=== PATIENT | female | born 1945 | race Caucasian/White ===

== ENCOUNTER 2019-12-25 07:33 | Day surgery (SDC) | payer MEDICARE, OTHER, SELFPAY ==
[2019-12-21 13:43] VITALS: BMI 37.5
[2019-12-25 07:53] VITALS: BP 200/96; PULSE 91; RESP 18; TEMP 36.9; O2SAT 97
--- NOTE | 2019-12-25 08:01 | ANES.PREANE2 ---
Pre-Anesthetic Assessment Pre-Anesthetic Assessment: Height/Weight: Height 1.57 m Weight 92.986 kg Temp Pulse Resp BP Pulse Ox 98.5 F 91 18 200/96 97 12/25/19 07:53 12/25/19 07:53 12/25/19 07:53 12/25/19 07:53 12/25/19 07:53 Preop Diagnosis: fobt Proposed Procedure: Operation Date: 12/25/19 09:00 Proposed Procedures p Colonoscopy 26473 R19.5(Not Applicable) - Torin Isabel MD Familial anesthetic complications: None Was Beta Nvein taken within 24 hours: Yes Last intake: NPO > 8hrs Social: Social History: No alcohol and No tobacco Comment: former smoker Exam: Pre-Anes Outpt Exam: alert, oriented x 3, clear to auscultation bilaterally and regular rate & rhythm Airway: Cervical ROM: WNL MP: 2 Additional comments: missing Pulmonary: Pulmonary: None reported CV/HEM: CV/HEM: HTN : : None reported Hepatic: Hepatic: None reported GI: GI: None reported Metabolic: Metabolic: DM and Hyperlipidemia Musc/skel: Musc/skel: Lower Back Pain Neuropsych: Neuropsych: None reported Comments: B/L Carotid artery stenosis (40-60% stenonis in 2015) Anesthetic Plan: ASA status: 3 Anesthesia: MAC Risk of > 500 ml blood loss (7ml/kg in children): No Other Pertinent Information: hx r breast caner PFSH Anesthesia PFSH: Medical History Breast cancer Diabetes mellitus Hyperlipidemia Hypertension Lumbar post-laminectomy syndrome Surgical History H/O breast surgery History of lumbar surgery Status post carpal tunnel release Right carpal tunnel release, DOS: 04-26-[address] Fox Left carpal tunnel release, DOS: 06-28-[address] Fox Family History Sister Diabetes Cancer Brother Cancer Denies family history of Anesthesia complication Bleeding disorder Social History Smoking and tobacco status: former smoker Alcohol intake: never Lives independently: Yes Pets and animals: Yes Pets & animals: cat(s) Data Anesthesia Cardiac Studies: No Data to Display
[2019-12-25] MEDS: sodium chloride 0.9% 1,000 ML 30 ML IV (08:07)
[2019-12-25 08:14] LABS: Glucose Point of Care 111 mg/dL (70-110)
--- NOTE | 2019-12-25 09:20 | P.HP_ITS ---
Same Day Surgery H&P Indication for Procedure/HPI DATE OF PROCEDURE: December 25, 2019 CHIEF COMPLAINT/INDICATIONFOR SURGICAL PROCEDURE: FOBt PREOP DIAGNOSIS: fobt PLANNED PROCEDRUE: Operation Date: 12/25/19 09:00 Proposed Procedures p Colonoscopy 75936 R19.5(Not Applicable) - Torin Isabel MD Medications/Allergies* Home Medications Medication Instructions Recorded Confirmed Type anastrozole 1 mg tablet 1 mg PO DAILY 08/17/19 12/25/19 History lisinopril 10 mg tablet 10 mg PO BID 08/17/19 12/25/19 History metformin 500 mg tablet 500 mg PO BID 08/17/19 12/25/19 History metoprolol tartrate 50 mg tablet 50 mg PO BID 08/17/19 12/25/19 History rosuvastatin 10 mg tablet 10 mg PO ONCE 08/17/19 12/25/19 History Allergies/Adverse Reactions Allergy/AdvReac Type Severity Reaction Status Date / Time tramadol Allergy Severe ALGY-Swell Verified 11/19/19 11:47 Lip/Tongue/Throat Current Medications: Generic Name Dose Route Start Last Admin Trade Name Freq PRN Reason Stop Dose Admin Sodium Chloride 1,000 mls @ 30 mls/hr 12/25/19 07:45 12/25/19 08:07 Sodium Chloride 0.9% IV 12/26/19 07:44 30 mls/hr .Q24H NOELLE Administration Pertinent History/Comorbid Conditions* Medical History (Updated 11/19/19 @ 14:14 by Torin Isabel MD) Breast cancer Diabetes mellitus Hyperlipidemia Hypertension Lumbar post-laminectomy syndrome Surgical History (Updated 11/19/19 @ 11:56 by Torin Isabel MD) H/O breast surgery History of lumbar surgery Status post carpal tunnel release Right carpal tunnel release, DOS: 04-26-[address] Fox Left carpal tunnel release, DOS: 06-28-[address] Fox Family History (Updated 11/19/19 @ 11:51 by NELI Pruett) Diabetes Sister Cancer Sister Brother Denies family history of Anesthesia complication Bleeding disorder Social History Smoking and tobacco status: former smoker Alcohol intake: never Lives independently: Yes Pets and animals: Yes Pets & animals: cat(s) Pertinent Exam Findings alert, oriented x 3 and regular rate & rhythm Recommendations Surgery/Procedure today Coding Level of Care Code Acute Datapower Consultant for Chg Fwd
[2019-12-25 10:16] VITALS: BP 120/63; PULSE 86; RESP 16; TEMP 36.3; O2SAT 99
[2019-12-25 11:00] VITALS: BP 148/88; PULSE 71; RESP 18; TEMP 36.4; O2SAT 98
== END 2019-12-25 11:15 | disposition home or self-care (01) ==
PROVIDERS: PCP Nurse Practitioner Family; Visit Provider Surgery
PROC: 0DJD8ZZ Inspection of Lower Intestinal Tract, Via Natural or Artificial Opening Endoscopic (ICD-10-PCS; CPT 45378; principal; 2019-12-25 08:55)
DX: R19.5 Other fecal abnormalities (principal); K64.8 Other hemorrhoids; D12.8 Benign neoplasm of rectum; K63.5 Polyp of colon; I10 Essential (primary) hypertension; E11.9 Type 2 diabetes mellitus without complications; E78.5 Hyperlipidemia, unspecified; I65.23 Occlusion and stenosis of bilateral carotid arteries; Z80.3 Family history of malignant neoplasm of breast
CPT/HCPCS: 12345; 36416; 45380; 82962; 88305; J2704; J7030

== ENCOUNTER 2020-01-10 10:39 | Outpatient (CLI) | payer MEDICARE, OTHER, SELFPAY ==
--- NOTE | 2020-01-10 10:47 | XR_ITS ---
WS: [id number] RIGHT HIP HISTORY: RIGHT HIP PAIN COMPARISON: None available. Right hip: No acute fracture or dislocation. Prior plate and screw fixation. No lucency or fractures involving the hardware. Mild narrowing of the inferior RIGHT SI joint. XR/XR hip RT 2-3V wo/w pel* [id number] IMPRESSION: 1. No hip fracture. 2. Prior ORIF RIGHT hip. No complications.
== END 2020-01-10 10:40 | disposition home or self-care (01) ==
LOC: RADWPI 10:42
PROVIDERS: Family Provider Nurse Practitioner Family; PCP Nurse Practitioner Family; Visit Provider Nurse Practitioner Family
DX: M25.551 Pain in right hip (principal)
CPT/HCPCS: 73502

== ENCOUNTER 2020-08-15 09:28 | Outpatient (CLI) | payer MEDICARE, OTHER, SELFPAY ==
--- NOTE | 2020-08-15 09:36 | MM_ITS ---
WS: [id number] BILATERAL DIGITAL DIAGNOSTIC MAMMOGRAM MAMMOGRAPHY WITH CAD CLINICAL INFORMATION: HX OF BREAST CA COMPARISON: TECHNIQUE: Bilateral CC, MLO, and ML views. FINDINGS: Scattered fibroglandular densities bilaterally. Vascular calcification. Punctate and lucent centered calcifications. Postoperative changes upper outer quadrant right breast. No suspicious focal mass, asymmetry, calcifications, or architectural distortion. No evidence of jerome gnancy. MM/[place] [id number] IMPRESSION: BI-RADS: 2-Benign FOLLOW UP: 1 Year Follow-up Recommend return to annual diagnostic mammography.
== END 2020-08-15 09:29 | disposition home or self-care (01) ==
LOC: RADSHAW 09:34
PROVIDERS: Family Provider Nurse Practitioner Family; PCP Nurse Practitioner Family; Visit Provider Nurse Practitioner Family
DX: Z85.3 Personal history of malignant neoplasm of breast (principal)
CPT/HCPCS: 77066

== ENCOUNTER 2020-08-25 05:43 | Outpatient (CLI) | payer MEDICARE, OTHER, SELFPAY ==
[2020-08-25 09:51] LABS: Basophils % 0.5 %; Eosinophils # 0.1 10^3/uL (0.0-0.8); Eosinophils % 1.4 %; Hematocrit 36.9 % (37.0-47.0); Hemoglobin 12.1 g/dL (11.5-15.3); Lymphocytes # 2.1 10^3/uL (0.8-4.8); Lymphocytes % 33.2 %; Mean Corpuscular HGB Conc 32.8 g/dL (30.0-36.0); Mean Corpuscular Volume 94.6 fL (81-99); Mean Platelet Volume 10.2 fL (7.4-10.4); Monocytes # 0.6 10^3/uL (0.2-0.9); Monocytes % 8.6 %; Neutrophils # 3.57 10^3/uL (1.8-7.7); Neutrophils % 56.1 %; Nucleated Red Blood Cells % 0 %; Platelet Count 258 10^3/cmm (130-400); Red Cell Distribution Width 13.8 % (12.1-15.1); White Blood Count 6.4 10^3/uL (4.0-10.0)
[2020-08-25 10:16] LABS: Alanine Aminotransferase 18 U/L (0-33); Albumin Level 4.4 g/dL (3.5-5.2); Alkaline Phosphatase 123 IU/L (35-105); Anion Gap 14.4 (5-19); Aspartate Amino Transferase 19 U/L (0-32); Blood Urea Nitrogen 17 mg/dL (8-23); Calcium 9.8 mg/dL (8.5-10.5); Carbon Dioxide 26 mmol/L (22-29); Chloride 102 mmol/L (98-107); Glucose 111 mg/dL (65-115); Osmolality Calculated 288 mOsm/kg (285-295); Potassium 4.4 mmol/L (3.5-5.1); Sodium 138 mmol/L (136-145); Total Bilirubin 0.3 mg/dL (0.15-1.2); Total Protein 7.4 g/dL (6.6-8.7)
--- NOTE | 2020-08-25 10:47 | ONC FU_ITS ---
Dr. Salinas follow up note Patient: Sweetie Stern Unit #: [id number]: 1945 Dicatated By: Lemuel Salinas M.D.Date of Visit:Aug 25, 2020 Onc Med Follow-up/Prog Note History of Present Illness: Mrs. 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 Patient tolerated procedure well. Underwent right excisional biopsy/lumpectomy on 09/14/2018 which showed ductal carcinoma in situ 1.1 x 0.6 cm in size with clear margins ER/VT positive HER-2/gibson negative Ki-67 7% Started on Arimidex 1 mg by mouth daily on 09/29/2018 Completed postlumpectomy radiation therapy on 11/02/2018 She denies any nipple discharge or retraction. Denies any right axillary lymphadenopathy. Denies any weight loss, denies any history of hormone use. History of chronic back pain status post back surgery Mammogram done on 07/20/2019 showed BI-RADS 2, benign Mammogram done on August 15, 2020 showed BI-RADS 2, benign Came for follow-up, denies any specific complaints except occasionally hot flashes otherwise tolerating Arimidex well, no fever chills, no nausea or vomiting, no diarrhea constipation, appetite is good Medications: Cetirizine HCl 1 Tablet (of 10 mg) Capsule Oral daily, Lisinopril 1 Tablet (of 10 mg) Oral daily, MetFORMIN HCl 1 Tablet (of 500 mg) Oral b.i.d., Metoprolol Tartrate 1 Tablet (of 50 mg) Oral daily, Penicillin V Potassium 1 Tablet (of 500 mg) Oral four times a day for 7 days, Rosuvastatin Calcium 1 Tablet (of 10 mg) Oral daily Allergies: TraMADol HCl Review of Systems: Constitutional - Appetite is fair and weight is stable. No fever, chills. No hot flashes or night sweats Energy is fair, ENMT - No sinus congestion/drainage. No mouth sores. No sore throat or difficulty swallowing, Hematologic/Lymphatic - Pt bruises/bleeds easy, Respiratory - Positive for shortness of breath and cough. No pleuritic pain or hemoptysis, Cardiovascular - No angina pain. No palpitations, Gastrointestinal - No nausea or vomiting. No heartburn or acid reflux. No constipation or diarrhea. No blood in the stool or black stools, Genitourinary (F) - No dysuria or hematuria. No urinary frequency. No urgency or incontinence, Musculoskeletal - Positive for back pain and leg pain, Neurologic - No headache or dizziness. No numbness/paresthesias or other focal neurologic symptoms, Psychiatric - No anxiety or depression. No insomnia. Vital Signs: Vitals are not available for this patient. Performance Status: 1 - No physically strenuous activity, but ambulatory and able to carry out light or sedentary work (e.g. office work, light house work). (ECOG) Physical Examination: Respiratory - Lungs are clear to auscultation, Cardiovascular - Regular rate and rhythm of heart, Gastrointestinal - Soft, bowel sounds present, Extremities - No visible edema or rash. Lab/Imaging: Test performed on Aug 25, 2020 09:12 Sodium 138 mmol/L Potassium 4.4 mmol/L Chloride 102 mmol/L CO2 26 mmol/L Anion Gap 14.4 BUN 17 mg/dL Creatinine 0.7 mg/dL Cr Clearance (Est) 101.3400 mL/min Glucose 111 mg/dL Osmolality - Calculated 288 mOsm/kg Calcium 9.8 mg/dL Protein, Total 7.4 g/dL Albumin 4.4 g/dL Globulin 3.0 g/dL Bilirubin, Total 0.3 mg/dL ALT (SGPT) 18 U/L AST (SGOT) 19 U/L Alkaline Phosphatase 123 IU/L WBC 6.4 10 3/uL RBC 3.90 10 6/uL HGB 12.1 g/dL HCT 36.9 % MCV 94.6 fL MCH 31.0 pg MCHC 32.8 g/dL RDW 13.8 % Platelet Count 258 10 3/cmm MPV 10.2 fL Neutrophils 3.57 10 3/uL Lymphocytes 2.1 10 3/uL Monocytes 0.6 10 3/uL Eosinophils 0.1 10 3/uL Basophils 0.0 10 3/uL Neutrophil % 56.1 % Lymphocyte % 33.2 % Monocyte % 8.6 % Eosinophil % 1.4 % Basophils % 0.5 % NRBC % 0 % Impression: Ductal carcinoma in situ involving the right breast per ultrasound guided biopsy done on 08/23/2018, final pathology report showed DCIS, grade 1/3, estrogen 100% progesterone 100%, HER-2/gibson negative Mammogram done on 07/19/2018 showed 8 x 6 mm hypoechoic lobulated mass at 10:00 position in the right breast.Ductal carcinoma in situ status post right breast lumpectomy done on 09/14/2018, final pathology report showed 1.1 x 0.6 cm mass with clear margins pTis Estrogen receptor 100%, progesterone receptor 100%, Ki-67 7%, HER-2/gibson negative Started on Arimidex 1 mg by mouth daily for 5 years on 09/29/2018 s/p postlumpectomy radiation therapy Completed on 11/02/2018 Right breast ultrasound done on 12/22/2018 showed at 12:00 position, deep to surgical scars, there is irregular hypoechoic posterior shadowing focus without evidence of residual fluid collection and diagnostic mammogram was advised Plan: Cussed with patient regarding her labs white blood count 6.4 hemoglobin 12.1 hematocrit 36.9 platelets 258,000 CMP within normal limits and mammogram finding which is benign Clinically, patient doing well with no signs symptoms/recurrence of disease, tolerating Arimidex well, follow-up lab work-up is within normal range as well as mammogram, will continue same and she will return to clinic in 1 year with CBC CMP and mammogram Signed By: Lemuel Salinas M.D. <<Signature on File>>
== END 2020-08-25 05:44 | disposition home or self-care (01) ==
LOC: ONCMED 05:45
PROVIDERS: Family Provider Nurse Practitioner Family; PCP Nurse Practitioner Family; Visit Provider Internal Medicine Hematology & Oncology
DX: D05.11 Intraductal carcinoma in situ of right breast (principal); Z17.0 Estrogen receptor positive status [ER+]; Z79.811 Long term (current) use of aromatase inhibitors; Z92.3 Personal history of irradiation
CPT/HCPCS: 36415; 80053; 85025; 99214

== ENCOUNTER 2020-12-04 12:57 | Inpatient (IN) | payer MEDICARE, OTHER, SELFPAY ==
[2020-12-04] VITALS (15 sets, daily range): BP systolic 132–266; BP diastolic 47–124; PULSE 72–104; RESP 12–29; TEMP 36.8; O2SAT 96–99; BMI 37.5
--- NOTE | 2020-12-04 13:59 | ECG_ITS ---
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 Measurements Intervals [place] Rate: 89 P: -11 CO: 143 QRS: 27 QRSD: 87 T: 38 QT: 373 QTc: 456 Interpretive Statements SINUS RHYTHM WITH OCCASIONAL VENTRICULAR PREMATURE COMPLEXES No previous ECG available for comparison Electronically Signed On 12-05-2020 7:18:31 CDT by Radha Yusuf M.D. [email or web address]
--- NOTE | 2020-12-04 13:59 | XR_ITS ---
WS: [id number] Exam: XR chest 1V portable [id number] Date/Time of Exam: 12/04/2020 1:59 PM Reason For Exam: cp Comparison 03/29/2019. The lungs are fully expanded. No acute infiltrates are seen. No pleural effusions. Heart size is norm al. Pulmonary vascularity is mildly prominent. Old right proximal humeral fracture. XR/XR chest 1V portable [id number] IMPRESSION: 1. No acute process identified.
[2020-12-04 14:22] LABS: Basophils % 0.4 %; Eosinophils # 0.1 10^3/uL (0.0-0.8); Eosinophils % 0.9 %; Hematocrit 37.5 % (37.0-47.0); Hemoglobin 12.4 g/dL (11.5-15.3); Lymphocytes # 2.1 10^3/uL (0.8-4.8); Lymphocytes % 21.5 %; Mean Corpuscular HGB Conc 33.1 g/dL (30.0-36.0); Mean Corpuscular Hemoglobin 30.9 pg (28.0-34.0); Mean Corpuscular Volume 93.5 fL (81-99); Mean Platelet Volume 9.8 fL (7.4-10.4); Monocytes # 0.6 10^3/uL (0.2-0.9); Monocytes % 6.2 %; Neutrophils # 6.82 10^3/uL (1.8-7.7); Neutrophils % 70.6 %; Nucleated Red Blood Cells % 0 %; Platelet Count 262 10^3/cmm (130-400); Red Blood Count 4.01 10^6/uL (4.1-5.3); Red Cell Distribution Width 13.5 % (12.1-15.1); White Blood Count 9.7 10^3/uL (4.0-10.0)
[2020-12-04 14:32] LABS: Troponin(5th) Baseline 8 ng/L (0-10)
[2020-12-04 14:47] LABS: Alanine Aminotransferase 24 U/L (0-33); Albumin Level 4.8 g/dL (3.5-5.2); Alkaline Phosphatase 124 IU/L (35-105); Anion Gap 15.2 (5-19); Aspartate Amino Transferase 23 U/L (0-32); Blood Urea Nitrogen 15 mg/dL (8-23); Calcium 9.2 mg/dL (8.5-10.5); Carbon Dioxide 26 mmol/L (22-29); Chloride 100 mmol/L (98-107); Globulin 2.6 g/dL (1.3-4.6); Glucose 93 mg/dL (65-115); NT Pro B Type Natriuretic Pept 917 pg/mL (0-450); Osmolality Calculated 285 mOsm/kg (285-295); Potassium 4.2 mmol/L (3.5-5.1); Sodium 137 mmol/L (136-145); Total Bilirubin 0.4 mg/dL (0.15-1.2); Total Protein 7.4 g/dL (6.6-8.7)
[2020-12-04] MEDS: aspirin 81 mg Chew Tablet 324 MG PO (15:06)
[2020-12-04] MEDS: labetalol 5 mg/mL SDV 20mL 10 MG IVP (15:13)
--- NOTE | 2020-12-04 15:15 | CT_ITS ---
WS: [id number] CT CHEST ANGIOGRAPHY WITH REFORMATS HISTORY: tachycardia/palpitations/chest pain TECHNIQUE: Contiguous axial images are obtained through the chest during arterial injection of intrav enous contrast. Images are reconstructed to evaluate the pulmonary arteries. MIP imaging also reviewe d. All CT scans at [facility] use at least one of these dose optimization techniques: aut omated exposure control; mA and/or kV adjustment per patient size (includes targeted exams where dose is matched to clinical indication); or iterative reconstruction. CONTRAST: Omnipaque 350; 95 mL IV. DLP: 534.17 mGy.cm COMPARISON: None available. Adequate opacification of the pulmonary arteries. No pulmonary emboli. Pulmonary artery size is sligh tly enlarged. Mild atherosclerosis aorta. No aneurysm or dissection. Moderate enlargement of the LEFT heart chambers. No RIGHT heart strain. No pericardial or pleural effusions. No adenopathy. Lungs are clear. No abnormality in the upper abdomen. CT/CT angio chest PE protcl [id number] IMPRESSION: 1. No pulmonary embolism. 2. Moderate LEFT heart enlargement. 3. No pneumonia.
[2020-12-04] MEDS: iohexol 350 mg/mL 100 mL Btl IV (15:35)
[2020-12-04 15:40] LABS: Add Urine Microscopic? NO; Charge for UA Resulting for Rev
[2020-12-04 15:50] LABS: Bilirubin Urine Neg (Negative); Blood Urine Neg (Negative); Glucose Urine UA Norm (Normal); Ketones Urine Negative (Negative); Leukocyte Esterase Urine Negative (Negative); Nitrate Urine Negative (Negative); Protein Urine Neg (Negative); Urine Appearance Clear (CLEAR); Urine Color Straw (Yellow); Urobilinogen Urine Norm (Negative); pH Urine 5 (5-7)
--- NOTE | 2020-12-04 15:59 | ECG_ITS ---
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 Measurements Intervals [place] Rate: 80 P: 58 NH: 175 QRS: 52 QRSD: 89 T: 56 QT: 378 QTc: 436 Interpretive Statements SINUS RHYTHM WITH OCCASIONAL VENTRICULAR PREMATURE COMPLEXES Compared to ECG 12/04/2020 14:37:06 No significant changes Electronically Signed On 12-05-2020 7:41:43 CDT by Radha Yusuf M.D. [id number]
[2020-12-04 16:30] LABS: D Dimer 0.98 ug/mIFEU (0-0.59)
[2020-12-04 16:33] LABS: Troponin 5 2HR 6.99 ng/L (0-10)
[2020-12-04 16:35] LABS: Troponin 5 2HR Delta -1.01 ABS# (0-10)
--- NOTE | 2020-12-04 18:38 | ED_ITS ---
HPI - Chest Pain General: Chief Complaint: Chest Pain Stated Complaint: CP, SOB Time Seen by Provider: 12/04/20 13:59 History of Present Illness: HPI narrative: The patient is a 75-year-old female with past medical history hypertension who comes to the ER complaining of palpitations. She says she has a dull ache in her chest whenever she gets a palpitation but it goes away immediately. She says they started Associated symptoms: Reports palpitations; Deny abdominal pain or dyspnea Review of Systems General: Reports: 10 or more systems reviewed and unremarkable except in HPI and below Const: Denies: fatigue Eyes: Denies: change in vision, blurry vision or eye redness ENMT: Denies: throat pain, swelling of lips/tongue, ear or mastoid pain or nasal congestion Card: Reports: palpitations; Denies: chest pain, irregular heart rhythm, edema, dyspnea on exertion or orthopnea Resp: Denies: dyspnea, productive cough or non-productive cough GI: Denies: abdominal pain, diarrhea or GI cramping : Denies: flank pain, difficulty voiding, urinary frequency or urinary urgency Musc: Denies: neck pain, back pain, extremity pain, joint pain, joint redness, limited range of motion or muscle weakness Skin/Breast: Denies: rash, pruritus, erythema, skin pain or skin tenderness Neuro: Denies: headache(s), numbness in extremities, weakness in extremities, sensory changes, difficulty walking, dizziness, confusion or Slurred speech present Psych: Denies: anxiety or depression Endo: Denies: polyuria All/Imm: Denies: urticaria, throat swelling or tongue swelling PFSH ED PFSH: Medical History (Updated 12/04/20 @ 18:38 by Rory Mckay MD) Breast cancer Diabetes mellitus Hyperlipidemia Hypertension Lumbar post-laminectomy syndrome Surgical History (Updated 01/08/20 @ 16:47 by Torin Isabel MD) H/O breast surgery History of lumbar surgery Status post carpal tunnel release Right carpal tunnel release, DOS: 04-26-[address] Fox Left carpal tunnel release, DOS: 06-28-[address] Fox Status post colonoscopy with polypectomy (12/25/19) ascending and rectal polyp Family History Sister Diabetes Cancer Brother Cancer Denies family history of Anesthesia complication Bleeding disorder Social History Smoking and tobacco status: former smoker Alcohol intake: never Lives independently: Yes Pets and animals: Yes Pets & animals: cat(s) Physical Exam Const: COMMON NORMALS: no acute distress, average body habitus, patient oriented x3, no limitations, healthy appearing, alert and well nourished GENERAL APPEARANCE: cooperative, comfortable, well kempt and well developed ORIENTATION/CONSCIOUSNESS: Yes awake, Yes oriented to person, Yes oriented to place and Yes oriented to time HENMT: COMMON NORMALS: normocephalic, external ears normal and Normal external nose present HEAD & SCALP: normal to inspection and normocephalic NOSE: Normal external nose present EXTERNAL EAR: Yes external ears normal MOUTH: Normal oral and palatal mucosa present THROAT: posterior oropharynx normal Eye: COMMON NORMALS: Equal, round and reactive pupils present and EOMs intact bilaterally GENERAL EYE: appearance normal, both eyes and all related structures PUPIL: Yes Equal, round and reactive pupils present Neck/C-Spine: COMMON NORMALS: full ROM, no lymphadenopathy, no meningeal signs and no JVD GENERAL: Yes normal visual inspection Lymph: LYMPHATIC: no lymphadenopathy noted Chest: COMMONS NORMALS: normal inspection of the chest and normal palpation of entire chest wall Resp: COMMON NORMALS: normal respiratory effort, No retractions, No use of accessory muscles, clear to auscultation bilaterally and percussion normal EFFORT & INSPECTION: Yes able to speak in complete sentences AUSCULTATION: clear to auscultation bilaterally PERCUSSION: percussion normal Cardio: COMMON NORMALS: no JVD, regular rate, S1 normal heart sound present, S2 normal heart sound present and Peripheral pulses 2+ throughout RATE: regular rate HEART SOUNDS: S1 normal heart sound present and S2 normal heart sound present PERIPHERAL PULSES: Peripheral pulses 2+ throughout OTHER: The patient has a slightly irregular rhythm. It is sinus mostly with a occasional PVC is what it sounds like. The EKG shows that pattern as well. GI: COMMON NORMALS: Normal to inspection, nondistended, normoactive bowel sounds present, Soft to palpation, non-tender and no masses INSPECTION: Yes normal to inspection PALPATION: Yes Soft to palpation : COMMON NORMALS: Yes no CVA tenderness BLADDER/KIDNEY EXAM: Yes no CVA tenderness Back/Pelvis: COMMON NORMALS: no CVA tenderness, thoracic and lumbar spine normal to inspection, no thoracic nor lumbar tenderness and thoraco-lumbar ROM normal Extremity: COMMON NORMALS: normal to inspection, full ROM, capillary refill normal, no joint enlargement and no pedal edema GENERAL: Yes normal exam except as noted Neuro: COMMON NORMALS: patient oriented x3, CN's II-XII intact bilaterally, moves all extremities, no focal motor deficits, no sensory deficits noted and gait normal SENSORIUM/ORIENTATION: Yes alert, Yes oriented to person, Yes oriented to place and Yes oriented to time MENINGEAL SIGNS: Yes no meningeal signs Psych: COMMON NORMALS: mental status grossly normal, Normal thought process present, cooperative, normal affect and speech normal APPEARANCE: Yes well kempt ATTITUDE: Yes calm SPEECH: Yes normal speech THOUGHT PROCESS: Normal thought process present Skin: COMMON NORMALS: no rashes or lesions noted GENERAL SKIN EXAM: no rashes or lesions noted Course Vital Signs: Vital signs: Vital Signs Temperature 98.3 F 12/04/20 13:13 Pulse Rate 76 12/04/20 17:30 Respiratory Rate 15 12/04/20 18:30 Blood Pressure 132/80 12/04/20 17:30 Pulse Oximetry 96 12/04/20 17:30 MDM - Chest Pain MDM Narrative: Medical decision making narrative: Patient comes to the ER complaining of palpitations. She does not really complain of chest pain at all. Troponins were normal x2 and EKG shows sinus rhythm with occasional PVCs. Her blood pressure was severely elevated on arrival and she was given 10 of labetalol with improvement of her blood pressure to a normal level. Her palpitations went away within 30 minutes of arrival. She continues to have occasional PVCs on the home comfort advisor though. I recommended she continue to take her blood pressure medicines. Discussed with Dr. Boles her case and he recommended outpatient follow-up in the clinic for Holter monitor. I discussed this with the patient and placed a case management referral. She is acceptable to the plan and wants to be discharged. ER with worsening symptoms. Lab Data: Labs: Lab Results 12/04/20 12/04/20 12/04/20 Range/Units 14:00 14:00 14:00 WBC 9.7 (4.0-10.0) 10^3/ uL RBC 4.01 L (4.1-5.3) 10^6/u L Hgb 12.4 (11.5-15.3) g/dL Hct 37.5 (37.0-47.0) % MCV 93.5 (81-99) fL MCH 30.9 (28.0-34.0) pg MCHC 33.1 (30.0-36.0) g/dL RDW 13.5 (12.1-15.1) % Plt Count 262 (130-400) 10^3/c mm MPV 9.8 (7.4-10.4) fL Neut % (Auto) 70.6 % Lymph % (Auto) 21.5 % Sharp % (Auto) 6.2 % Eos % (Auto) 0.9 % Baso % (Auto) 0.4 % Neut # (Auto) 6.82 (1.8-7.7) 10^3/u L Lymph # (Auto) 2.1 (0.8-4.8) 10^3/u L Sharp # (Auto) 0.6 (0.2-0.9) 10^3/u L Eos # (Auto) 0.1 (0.0-0.8) 10^3/u L Baso # (Auto) 0.0 (0.0-0.1) 10^3/u L Nucleated RBC % (a uto) 0 % Nucleated RBCs # 0.0 /100WBC D-Dimer (0-0.59) ug/mIFE U Sodium 137 (136-145) mmol/L Potassium 4.2 (3.5-5.1) mmol/L Chloride 100 (98-107) mmol/L Carbon Dioxide 26 (22-29) mmol/L Anion Gap 15.2 (5-19) BUN 15 (8-23) mg/dL Creatinine 0.7 (0.5-0.9) mg/dL GFR Calculation Not Reportable Glucose 93 (65-115) mg/dL Calculated Osmolal ity 285 (285-295) mOsm/k g Calcium 9.2 (8.5-10.5) mg/dL Total Bilirubin 0.4 (0.15-1.2) mg/dL AST 23 (0-32) U/L ALT 24 (0-33) U/L Alkaline Phosphata se 124 H (35-105) IU/L Troponin T Baselin e 8 (0-10) ng/L Troponin T 120 Min dwight (0-10) ng/L Delta Troponin T (0-10) ABS# NT-Pro-B Natriuret Pep 917 H (0-450) pg/mL Total Protein 7.4 (6.6-8.7) g/dL Albumin 4.8 (3.5-5.2) g/dL Globulin 2.6 (1.3-4.6) g/dL Urine Color (Yellow) Urine Appearance (CLEAR) Urine pH (5-7) Ur Specific Gravit y (1.005-1.030) Urine Protein (Negative) Urine Glucose (UA) (Normal) Urine Ketones (Negative) Urine Blood (Negative) Urine Nitrate (Negative) Urine Bilirubin (Negative) Urine Urobilinogen (Negative) mg/dL Ur Leukocyte Jaleesa ase (Negative) 12/04/20 12/04/20 12/04/20 Range/Units 15:26 16:00 16:00 WBC (4.0-10.0) 10^3/ uL RBC (4.1-5.3) 10^6/u L Hgb (11.5-15.3) g/dL Hct (37.0-47.0) % MCV (81-99) fL MCH (28.0-34.0) pg MCHC (30.0-36.0) g/dL RDW (12.1-15.1) % Plt Count (130-400) 10^3/c mm MPV (7.4-10.4) fL Neut % (Auto) % Lymph % (Auto) % Sharp % (Auto) % Eos % (Auto) % Baso % (Auto) % Neut # (Auto) (1.8-7.7) 10^3/u L Lymph # (Auto) (0.8-4.8) 10^3/u L Sharp # (Auto) (0.2-0.9) 10^3/u L Eos # (Auto) (0.0-0.8) 10^3/u L Baso # (Auto) (0.0-0.1) 10^3/u L Nucleated RBC % (a uto) % Nucleated RBCs # /100WBC D-Dimer 0.98 H (0-0.59) ug/mIFE U Sodium (136-145) mmol/L Potassium (3.5-5.1) mmol/L Chloride (98-107) mmol/L Carbon Dioxide (22-29) mmol/L Anion Gap (5-19) BUN (8-23) mg/dL Creatinine (0.5-0.9) mg/dL GFR Calculation Glucose (65-115) mg/dL Calculated Osmolal ity (285-295) mOsm/k g Calcium (8.5-10.5) mg/dL Total Bilirubin (0.15-1.2) mg/dL AST (0-32) U/L ALT (0-33) U/L Alkaline Phosphata se (35-105) IU/L Troponin T Baselin e (0-10) ng/L Troponin T 120 Min dwight 6.99 (0-10) ng/L Delta Troponin T -1.01 L (0-10) ABS# NT-Pro-B Natriuret Pep (0-450) pg/mL Total Protein (6.6-8.7) g/dL Albumin (3.5-5.2) g/dL Globulin (1.3-4.6) g/dL Urine Color Straw (Yellow) Urine Appearance Clear (CLEAR) Urine pH 5 (5-7) Ur Specific Gravit y 1.010 (1.005-1.030) Urine Protein Neg (Negative) Urine Glucose (UA) Norm (Normal) Urine Ketones Negative (Negative) Urine Blood Neg (Negative) Urine Nitrate Negative (Negative) Urine Bilirubin Neg (Negative) Urine Urobilinogen Norm (Negative) mg/dL Ur Leukocyte Jaleesa ase Negative (Negative) Discharge Plan Discharge Patient Disposition: Home Clinical Impression: Heart palpitations Condition: Stable Prescriptions: No Action metformin 500 mg tablet 500 mg PO DAILY@0800 RF: 0 rosuvastatin 10 mg tablet 10 mg PO DAILY@0800 RF: 0 anastrozole 1 mg tablet 1 mg PO DAILY@0800 RF: 0 lisinopril 20 mg tablet 20 mg PO DAILY@0800 RF: 0 metoprolol succinate 100 mg tablet extended release 24 hr 100 mg PO DAILY@0800 RF: 0 Advil 200 mg Tablet 200 mg PO BID PRN (Reason: Pain) RF: 0 amlodipine 5 mg tablet 5 mg PO DAILY RF: 0 Discharge Orders: Discharge ED (Routine); Ordered 12/04/20 Ordered By: Rory Mckay Referrals: Leslie Spivey FNP [Primary Care Provider] - Discharge Diet: Advance as tolerated Discharge Activity: Resume usual activity Patient Instructions: Palpitations (ED), Opioid Safety Activity Restrictions/Additional Instructions: You have palpitations of unclear cause. Please continue to take your blood pressure medications and follow-up with cardiology next week. I have placed a case management referral to help you get in with this and also get a Holter monitor to monitor your palpitations. They should be calling you tomorrow to help schedule an appointment. Your palpitations have resolved spontaneously in the ER which is encouraging you continue to have PVCs on telemetry. Return to the ER with worsening symptoms at any time. Otherwise follow-up with cardiology next week. Coding Level of Care Code ED Energy Conservation Specialist for Jose Ash
--- NOTE | 2020-12-04 19:01 | PC.NURSE ---
report received from LARISSA Omer and care transferred to LARISSA Vargas
[2020-12-04] MEDS: labetalol 5 mg/mL SDV 20mL 20 MG IVP (19:55)
--- NOTE | 2020-12-04 19:59 | ECG_ITS ---
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 Measurements Intervals [place] Rate: 75 P: 58 [place]: 183 QRS: 59 QRSD: 87 T: 59 QT: 394 QTc: 441 Interpretive Statements SINUS RHYTHM Compared to ECG 12/04/2020 15:56:16 Ventricular premature complex(es) no longer present Electronically Signed On 12-05-2020 7:26:51 CDT by Radha Yusuf M.D. [id number]
[2020-12-04 20:40] LABS: Troponin 5 6HR 9.25 ng/L (0-10); Troponin 5 6HR Delta 1.25 ng/L (0-12)
--- NOTE | 2020-12-04 20:50 | PC.NURSE ---
patient family updated on patient plan of care
--- NOTE | 2020-12-04 22:36 | P.HP_ITS ---
Providers/Chief Complaint Admitting Physician: Lexi Alvarez MD Primary Care Provider: KECIA Sotelo Chief Complaint: CP, SOB History of Present Illness Sweetie Stern is a 75 year old female who presented to the hospital with chief complaint of palpitations and high blood pressure. Patient is stating that he was in her usual state of health until today when she started e xperiencing palpitations, her palpitations would last for few seconds and subside on its own, she never experienced any chest pain, shortness of breath, syncopal events. She describes her palpitations as butterflies sensation in her chest not associated with any nausea or vomiting. She is compliant with her medications and drinks 3 cups of coffee in a day, does not smoke or drink alcohol. She has never been diagnosed with any murmur in the past no history of SC or CHF. Diagnostics in the ER revealed hypertensive emergency patient blood pressure was 258/119 she was complaining of headache and lightheadedness, she received 30 mg of labetalol in the ER which brought her blood pressure down to 157/47 at the time my evaluation, patient was complaining of lightheadedness. She is also endorsing history of vertigo but thinks lightheadedness has gotten worse today. Her potassium is normal blood work is unremarkable, borderline D-dimer CTA negative for PE, she is endorsing constipation and weight gain, will check TSH, EKG showing PVCs, clinically does not look fluid overloaded however BNP 917 Review of Systems Const: Reports: body aches, fatigue and malaise; Denies: fever(s) Eyes: Denies: change in vision ENMT: Denies: throat pain Card: Reports: palpitations and lightheadedness Resp: Denies: dyspnea GI: Denies: abdominal pain : Denies: flank pain Musc: Denies: neck pain Skin/Breast: Denies: rash Neuro: Denies: headache(s) Psych: Denies: anxiety Endo: Denies: polyuria Nils/Lymph: Denies: easy bruising All/Imm: Denies: urticaria Medications/Allergies Home Medications Medication Instructions Recorded Confirmed Last Taken Type anastrozole 1 mg tablet 1 mg PO DAILY@0800 08/17/19 12/04/20 12/04/20 History metformin 500 mg tablet 500 mg PO DAILY@79908/17/19 12/04/2021 History rosuvastatin 10 mg tablet 10 mg PO DAILY@0800 08/17/19 12/04/20 12/04/20 History amlodipine 5 mg PO DAILY 12/04/20 12/04/20 Unknown History ibuprofen [Advil] 200 mg PO BID PRN 12/04/20 12/04/20 12/04/20 History lisinopril 20 mg PO DAILY@0800 12/04/20 12/04/20 12/04/20 History metoprolol succinate 100 mg PO DAILY@0800 12/04/20 12/04/20 12/04/20 History Allergies Allergy/AdvReac Type Severity Reaction Status Date / Time tramadol Allergy Severe ALGY-Swell Verified 12/04/20 13:13 Lip/Tongue/Throat PFSH Acute PFSH: Medical History Breast cancer Diabetes mellitus Hyperlipidemia Hypertension Lumbar post-laminectomy syndrome Surgical History H/O breast surgery History of lumbar surgery Status post carpal tunnel release Right carpal tunnel release, DOS: 04-26-[address] Fox Left carpal tunnel release, DOS: 06-28-[address] Fox Status post colonoscopy with polypectomy (12/25/19) ascending and rectal polyp Family History Sister Diabetes Cancer Brother Cancer Denies family history of Anesthesia complication Bleeding disorder Social History Smoking and tobacco status: former smoker Alcohol intake: never Lives independently: Yes Pets and animals: Yes Pets & animals: cat(s) Vitals/I&O/Wt Last Vital Signs Temp 98.3 F 12/04/20 13:13 Pulse 74 12/04/20 22:02 Resp 12 12/04/20 22:02 BP 157/47 12/04/20 22:02 Pulse Ox 96 12/04/20 20:37 Weight last 48 hrs Weight 92.986 kg Physical Exam Narrative: EXAM NARRATIVE: Very pleasant elderly female She was sitting comfortably when I entered the room Saturating well on room air Blood pressure 157/47 mmHg patient was complaining of lightheadedness no active chest pain shortness of breath abdominal pain S1, S2 systolic murmur 2/6 right second intercostal space No carotid bruit Abdomen soft nontender Bilateral breath sounds without adventitious rhonchi or crackles Lower extremity no edema gangrene ulcer Appropriate mood and affect EOMI, PERRLA No neurological deficit Data : 12/04/20 14:00 12/04/20 14:00 A&P Assessment and plan (1) PVCs (premature ventricular contractions): Status: Acute (2) Heart palpitations: Status: Acute (3) Hypertensive urgency: Status: Acute Additional A&P Information Hypertensive urgency with palpitations Patient complaining of headache and lightheadedness after reduction of blood pressure which I believe is secondary to sudden drop in blood pressure, she is awake and alert able to mention above HPI, no active chest pain or shortness of breath, EKG showing PVCs electrolytes normal We will check TSH and magnesium level, Noticed systolic murmur will request echo in the morning Her pressure has been reduced more than 25% from the time of admission, I would be reluctant to reduce her pressure further to avoid press syndrome We will increase her amlodipine to 10 mg and lisinopril to 40 mg along metoprolol 100 mg daily Patient was advised to cut down on her caffeine intake Type 2 diabetes: Moderate sliding scale Hold Metformin History of breast cancer: Hold anastrozole Cardiac diet DVT prophylaxis Lovenox Full code Attestations Medical Necessity Statement*: Anticipating discharge in less than 48 hours overnight monitoring needed because of hypertensive urgency, headache and lightheadedness with reduction of blood pressure Time Spent in Patient Care: 30mins Coding Level of Care Code Acute Steam Table Worker for Chg Fwd Diagnoses PVCs (premature ventricular contractions) I49.3 Heart palpitations R00.2 Hypertensive urgency I16.0
--- NOTE | 2020-12-04 23:26 | PC.NURSE ---
Addendum entered by BRONWYN Oshea 12/05/20 00:40: Patient has a nicotine patch on left arm that she self applied at home. Original Note: Patient brought to room 111-2 via stretcher from ED. Upon arrival to the unit, patient is A & O x4. No complaints of pain or other needs at this time. Nurse will continue to monitor.
[2020-12-05] VITALS (29 sets, daily range): BP systolic 117–266; BP diastolic 51–113; PULSE 62–104; RESP 7–25; TEMP 36.4–36.8; O2SAT 93–98
[2020-12-05] MEDS: nicardipine 20 MG/200 ML PREMIX 50 MG IV (00:16)
[2020-12-05] MEDS: acetaminophen 325 mg Tablet PO ×3 (00:16→23:07)
--- NOTE | 2020-12-05 01:15 | PC.NURSE ---
Received patient from ED. Patient is A & O x4. Upon arrival to floor, patient BP is still elevated. Monitor BP show's 260's/100's. Manual BP 186/108. Per Dr. Antonio Dominguez drip. Patients BP is now 132/62. Daughter Carolin was updated on patients condition. Nurse will continue to monitor.
--- NOTE | 2020-12-05 06:00 | USCV_ITS ---
Sweetie Stern Age: 75 Gender: F : 1945 Exam Date: 12/05/2020 05:54 Ordering Phys: Lexi Alvarez MD Technologist: Tiffany Flower Exam Location: [facility] [place] Indication: MURMUR BP: 154 / 67 HR: 97 Rhythm: Sinus Technical Quality: Adequate MEASUREMENTS (Male / Female) Normal Values 2D ECHO LV Diastolic Diameter PLAX 4.6 cm 4.2 - 5.9 / 3.9 - 5.3 cm LV Systolic Diameter PLAX 2.7 cm LV Chamber Size 4.0 cm IVS Diastolic Thickness 0.8 cm 0.6 - 1.0 / 0.6 - 0.9 cm IVS Systolic Thickness 1.9 cm LVPW Diastolic Thickness 1.3 cm 0.6 - 1.0 / 0.6 - 0.9 cm LVPW Systolic Thickness 2.3 cm RV Chamber Size 2.6 cm LVOT Diameter 2.1 cm LV Ejection Fraction 2D Teich 72.6 % LV Ejection Fraction MOD 2C 58.0 % LV Ejection Fraction 2C AL 60.0 % LA Diameter 3.0 cm LA Width 2.9 cm LA Height 4.9 cm RA Width 3.2 cm RA Height 4.0 cm Aorta at Sinotubular Diameter 2.8 cm M-MODE LV Diastolic Diameter MM 4.3 cm 4.2 - 5.9 / 3.9 - 5.3 cm LV Systolic Diameter MM 2.7 cm LV Ejection Fraction MM Teich 68.9 % IVS Diastolic Thickness MM 1.1 cm 0.6 - 1.0 / 0.6 - 0.9 cm IVS Systolic Thickness MM 1.8 cm LVPW Diastolic Thickness MM 1.5 cm 0.6 - 1.0 / 0.6 - 0.9 cm LVPW Systolic Thickness MM 2.0 cm Aortic Annulus Diameter 2.6 cm LA Ao Ratio MM 1.4 MV E Point Septal Separation 0.6 cm DOPPLER AV Peak Velocity 318.0 cm/s LVOT Peak Velocity 90.0 cm/s AV Area Cont Eq vti 1.0 cm squared AV Area Cont Eq pk 0.9 cm squared MV Area PHT 5.5 cm squared Mitral E to A Ratio 1.0 MV E' Velocity 41.0 cm/s Mitral E to MV E' Ratio 10.2 Mitral E to LV E' Lateral Ratio 9.0 Mitral E to LV E' Septal Ratio 11.9 TR Peak Velocity 155.9 cm/s TR Peak Gradient 9.7 mmHg TR Mean Velocity 114.4 cm/s TR Mean Gradient 5.9 mmHg TR Velocity Time Integral 40.2 cm TV Peak E Velocity 81.0 cm/s Right Atrial Pressure 3.0 mmHg Pulmonary Artery Systolic Pressu 12.7 mmHg PV Peak Velocity 104.0 cm/s FINDINGS Left Ventricle Normal left ventricular cavity size. Moderate left ventricular hypertrophy. Hyperdynamic left ventricular systolic function. Left ventricular ejection fraction is estimated at 70 %. Grade I/IV diastolic dysfunction (abnormal relaxation filling pattern), normal to mildly elevated filling pressures. Right Ventricle The right ventricle is normal in size and function. Right Atrium The right atrium is normal in size. Left Atrium The left atrium is normal in size. Mitral Valve Structurally normal mitral valve without significant stenosis or prolapse. There is no mitral regurgitation. Aortic Valve Moderate aortic valve calcification. No aortic valve stenosis. Mild aortic valve regurgitation. Tricuspid Valve Structurally normal tricuspid valve without significant stenosis or regurgitation. Pulmonary artery systolic pressure is normal. Pulmonic Valve Structurally normal pulmonic valve without significant stenosis. There is no pulmonic regurgitation. Pericardium Normal pericardium without effusion. Aorta Normal ascending aorta dimension. CONCLUSIONS 1-Normal left ventricular cavity size. Moderate left ventricular hypertrophy. Hyperdynamic left ventricular systolic function. Left ventricular ejection fraction is estimated at 70 %. Grade I/IV diastolic dysfunction (abnormal relaxation filling pattern), normal to mildly elevated filling pressures. 2-Moderate aortic valve calcification. No aortic valve stenosis. Mild aortic valve regurgitation. 3-There is no pericardial effusion. 4-Pulmonary artery systolic pressure is within normal limits. 5-Right atrial pressure is around 5 mm of mercury. 6-When compared to the prior echocardiogram dated 26 November 2017 there is no significant change 11/25/2017. Lexi Gonzalez MD (Electronically Signed) Final Date: 06 Dec 2020 23:23 S
[2020-12-05 06:41] LABS: Glucose Point of Care 117 mg/dL (70-110)
[2020-12-05] MEDS: metoprolol succinate ER (24 HR) 100 mg Tablet PO (06:45)
[2020-12-05] MEDS: atorvastatin 40 mg Tablet PO (06:45)
--- NOTE | 2020-12-05 06:45 | PC.NURSE ---
Stopped cardene drip at 0253 based on documented blood pressures. Patient up to bathroom and received cardiac echo this morning and blood pressure increased to 173/104. Informed Dr Alvarez and received instruction to give morning PO meds early.
[2020-12-05] MEDS: lisinopril 20 mg Tablet 40 MG PO (06:47)
[2020-12-05] MEDS: amlodipine 5 mg Tablet 10 MG PO (09:10)
--- NOTE | 2020-12-05 10:12 | CT_ITS ---
WS: [id number] CT HEAD NONCONTRAST HISTORY: headache TECHNIQUE: Contiguous axial imaging performed through the brain in 2.5 mm imaging. Bone and soft tiss ue windows. Sagittal and coronal reformats reviewed. All CT scans at [facility] use at ast one of these dose optimization techniques: automated exposure control; mA and/or kV adjustment pe r patient size (includes targeted exams where dose is matched to clinical indication); or iterative r econstruction. DLP: 786.75 mGy.cm COMPARISON: None available. No acute intracranial hemorrhage, midline shift or mass effect. No atrophy or prior infarcts or herniation. Small lacunar infarcts in the basal ganglia bilaterally. Very minimal chronic white matter ischemic changes. Ventricles: Normal size with no hydrocephalus. Paranasal sinuses: As visualized are clear. Mastoid air cells: Well pneumatized. Calvarium and scalp: Skull is intact with no soft tissue edema or swelling. CT/CT head wo con* [id number] IMPRESSION: 1. No acute intracranial hemorrhage or edema. 2. Mild atrophy and small bilateral lacunar infarcts in the basal ganglia.
[2020-12-05 11:37] LABS: Glucose Point of Care 112 mg/dL (70-110)
--- NOTE | 2020-12-05 12:25 | P.PN_ITS ---
Subjective Subjective: Interval history: BP ranging between 150-200 sytsolic. Patient c/o headache which is worsened since this morning Medications: Reviewed: Yes Vitals/I&O/Wt Last Vital Signs Temp 97.6 F 12/05/20 11:28 Pulse 104 H 12/05/20 11:28 Resp 16 12/05/20 11:28 BP 173/74 12/05/20 12:12 Pulse Ox 97 12/05/20 11:28 12/05/20 12/05/20 12/05/20 06:59 14:59 22:59 Intake Total 130.833 / 130.833 600 / 600 Balance 130.833 / 130.833 600 / 600 Weight last 48 hrs Weight 92.986 kg Physical Exam Narrative: EXAM NARRATIVE: GEN: Awake, alert and oriented, no acute distress CVS: S1S2 N RS: CTA B/L Abd: Soft, nt/nd , bs+ MAINTAINER PLANT: no focal neuro deficits Data : 12/04/20 14:00 12/04/20 14:00 A&P Assessment and plan (1) PVCs (premature ventricular contractions): Status: Acute (2) Heart palpitations: Status: Acute (3) Hypertensive urgency: Status: Acute Additional A&P Information Hypertensive urgency Presented with BP of 266 systolic, goran down with medications to SBP range of 150-190 C/o persistent headache today which is much worse carbajal her usual headaches Will obtain CT head today to exclude SAH gien elevated BP and persistent headache Noticed systolic murmur , pending echocardiogram Continue amlodipine to 10 mg and lisinopril to 40 mg along metoprolol 100 mg daily and monitor BP closely Type 2 diabetes: Moderate sliding scale Hold Metformin History of breast cancer: Resume anastrozole Cardiac diet DVT prophylaxis Lovenox Full code Attestations Medical Necessity Statement*: Worsened headache, CT head to evaluate for subarachnoid hemorrhage, needs monitoring of blood pressure given wide fluctuations today Coding Level of Care Code Acute Clinical Rehabilitation Specialist for Chg Fwd Diagnoses PVCs (premature ventricular contractions) I49.3 Heart palpitations R00.2 Hypertensive urgency I16.0
[2020-12-05] MEDS: ibuprofen 600 mg Tablet PO (15:21)
[2020-12-05 16:32] LABS: Glucose Point of Care 100 mg/dL (70-110)
[2020-12-05 20:21] LABS: Glucose Point of Care 100 mg/dL (70-110)
[2020-12-05] MEDS: isosorbide mononitrate ER 30 mg Tablet PO (20:36)
--- NOTE | 2020-12-05 22:54 | PC.NURSE ---
Bedside report received from Marcial RN. patient is sitting in a chair beside the bed crocheting. Patient is A & O x4. Patient is requesting a cup of green tea. Hot tea brought to patient. Patient does not complain of pain or any other needs at this time.
[2020-12-06] VITALS: BP 129/54; PULSE 65; RESP 14; TEMP 36.5; O2SAT 97
[2020-12-06 00:34] VITALS: BP 129/54; PULSE 59; RESP 17
[2020-12-06 03:33] VITALS: BP 140/75; PULSE 76; RESP 16; TEMP 36.5; O2SAT 98
[2020-12-06 06:00] VITALS: PULSE 62
[2020-12-06 06:34] LABS: Glucose Point of Care 104 mg/dL (70-110)
[2020-12-06 07:48] VITALS: BP 157/68; PULSE 92; RESP 19; TEMP 36.7; O2SAT 98
[2020-12-06] MEDS: acetaminophen 325 mg Tablet PO (08:15)
[2020-12-06] MEDS: atorvastatin 40 mg Tablet PO (08:15)
[2020-12-06] MEDS: amlodipine 5 mg Tablet 10 MG PO (08:16)
[2020-12-06] MEDS: isosorbide mononitrate ER 30 mg Tablet PO (08:16)
[2020-12-06] MEDS: metoprolol succinate ER (24 HR) 100 mg Tablet PO (08:16)
[2020-12-06] MEDS: lisinopril 20 mg Tablet 40 MG PO (08:16)
[2020-12-06 10:12] VITALS: BP 157/68; PULSE 92; RESP 19; TEMP 36.7; O2SAT 98
--- NOTE | 2020-12-06 10:15 | P.DS_ITS ---
Discharge Providers Date of Admission: 12/05/20 16:30 Date of Discharge: December 06, 2020 Attending Provider at Admission: Lexi Alvarez MD Attending Provider at Discharge: Loly Wolf MD Primary Care Provider: KECIA Sotelo Diagnoses at Discharge Discharge Diagnosis (1) PVCs (premature ventricular contractions): Status: Acute (2) Heart palpitations: Status: Acute (3) Hypertensive urgency: Status: Acute Reason for Visit Reason for Visit: CP, SOB Hospital Course Hospital Course Sweetie Stern is a 75 year old female who presented to the hospital with chief complaint of palpitations and high blood pressure. Diagnostics in the ER revealed hypertensive emergency patient blood pressure was 258/119 she was complaining of headache and lightheadedness. She was admitted and antihypertensives were adjusted/added to her regimen. She is currently being discharged after being optimized on amlodipine 10 mg and lisinopril 40 mg metoprolol 100 mg daily and Imdur 30mg po daily. Instructed to maintain a BP chart by checking BP BID and bring it to PCP for review in the next week. Hospital course notable for persistent headache, patient states she has headaches in the past, however this when she was described as a bandlike sensation, worse than her usual, CT of the head was obtained to rule out any subarachnoid hemorrhage. This test was negative for any hemorrhage; mild atrophy and small bilateral lacunar infarcts were identified in the basal ganglia of uncertain chronicity. Patient has no neurological deficits at that time therefore acute stroke is lower on the differential. Aspirin has been added to her regimen. Patient is already on rosuvastatin which she is encouraged to continue. Physical Exam Narrative: EXAM NARRATIVE: GEN: Awake, alert and oriented, no acute distress CVS: S1S2 N RS: CTA B/L Abd: Soft, nt/nd , bs+ FERRY OPERATOR: no focal neuro deficits Discharge Data Data Completed and Pending: Completed Studies During Hospitalization Category Date Time Status CT angio chest PE protcl [id number] Stat Cat Scan 12/04/20 15:[address] head wo con* 7 0450 Stat Cat Scan 12/05/20 10:12 Completed XR chest 1V tyrone ble [id number] Stat Exams 12/04/20 13:59 Completed Pending at discharge Category Date Time Status CV echo complete* [id number] Routine Ultrasound 12/05/20 06:00 Taken Labs from last 24 hours 12/06/20 12/05/20 12/05/20 06:26 20:15 16:19 POC Glucose 104 100 100 12/05/20 11:28 POC Glucose 112 H Vitals: Last Vital Signs Temp 98.0 F 12/06/20 10:12 Pulse 92 12/06/20 10:12 Resp 19 H 12/06/20 10:12 BP 157/68 12/06/20 10:12 Pulse Ox 98 12/06/20 10:12 Discharge Plan Discharge Patient Disposition: Home Condition: Stable Prescriptions: New isosorbide mononitrate 30 mg Tablet Extended Release 24 Hr 30 mg PO DAILY 30 Days Qty: 30 RF: 0 Adult Low Dose Aspirin 81 mg tablet,delayed release (DR/EC) 81 mg PO DAILY 30 Days Qty: 30 RF: 0 Continued metformin 500 mg tablet 500 mg PO DAILY@0800 RF: 0 rosuvastatin 10 mg tablet 10 mg PO DAILY@0800 RF: 0 anastrozole 1 mg tablet 1 mg PO DAILY@0800 RF: 0 metoprolol succinate 100 mg tablet extended release 24 hr 100 mg PO DAILY@0800 RF: 0 Changed lisinopril 20 mg tablet 40 mg PO DAILY@0800 30 Days Qty: 30 RF: 0 amlodipine 5 mg tablet 10 mg PO DAILY 30 Days Qty: 30 RF: 0 Discontinued ibuprofen [Advil] 200 mg Tablet 200 mg PO BID PRN (Reason: Pain) RF: 0 Discharge Orders: Discharge Order (Routine); Ordered 12/06/20 Ordered By: Loly Wolf Referrals: Leslie Spivey STUDIO MUSICIAN [Primary Care Provider] - 7-10 days ([facility] will contact you to schedule an follow-up appointment in 4 to 7 days. If you haven't heard from them by Tuesday. Please call ) Discharge Diet: Advance as tolerated Discharge Activity: Resume usual activity Patient Instructions: Aspirin (By mouth), Isosorbide Mononitrate (By mouth), Palpitations (DC), Hypertensive Crisis (DC) Activity Restrictions/Additional Instructions: please maintain BP chart twice a day as advised and follow up with your primary care provider in 7-10 days. Discharge Attestations Time Spent in Discharge Care*: greater than 30 min Quality Metrics Clinical Quality Measures During this hospital stay, did patient experience: None Coding Level of Care Code Acute Chg FW DC note Diagnoses PVCs (premature ventricular contractions) I49.3 Heart palpitations R00.2 Hypertensive urgency I16.0
--- NOTE | 2020-12-08 14:40 | DCPLANNER ---
Addendum entered by Anabella Chaparro 12/09/20 15:50: Patient returned continuous pillowcase cutter phone call, stated that she followed up with her primary care physician, and does not need the follow up with heart care. emergency planning and response manager called heart care and cancelled the appointment. Addendum entered by Anabella Chaparro 12/09/20 10:07: emergency planning and response manager called patient and left a voicemail for patient to return continuous pillowcase cutter phone call for appointment information. Original Note: emergency planning and response manager had message to schedule a follow up appointment for patient with heart care. emergency planning and response manager called the heart care clinic, spoke with Janett, gave clinic patients information. A follow up appointment was scheduled for Tuesday, December 15, 2020 at 3:[address] Allison. emergency planning and response manager called phone number [phone], unable to speak with patient at this time, a voicemail was left for patient to return continuous pillowcase cutter phone call.
== END 2020-12-06 11:33 | disposition home or self-care (01) | DRG 305 ==
LOC: ER 18:38 → CSU 22:29
PROVIDERS: Admitting Provider Internal Medicine; Emergency Provider Family Medicine; PCP Nurse Practitioner Family; Visit Provider Student in an Organized Health Care Education/Training Program
DX: I16.0 Hypertensive urgency (principal); I10 Essential (primary) hypertension; I49.3 Ventricular premature depolarization; C50.919 Malignant neoplasm of unspecified site of unspecified female breast; E11.9 Type 2 diabetes mellitus without complications; E78.5 Hyperlipidemia, unspecified; M96.1 Postlaminectomy syndrome, not elsewhere classified; Z86.010 Personal history of colon polyps; Z87.891 Personal history of nicotine dependence; Z79.811 Long term (current) use of aromatase inhibitors
CPT/HCPCS: 36415; 36416; 70450; 71045; 71275; 80053; 81003; 82962; 83735; 83880; 84443; 84484; 85025; 85378; 93005; 93306; 96374; 96376; 97110; 97161; 99285; G0378; J3490; Q9967

== ENCOUNTER → 2021-03-30 11:44 | Outpatient (BNVA) | payer MEDICARE, OTHER, SELFPAY | PROVIDERS: PCP Nurse Practitioner Family; Referring Provider Nurse Practitioner Family; Visit Provider Specialist | DX: M65.331 Trigger finger, right middle finger (principal); Z01.812 Encounter for preprocedural laboratory examination; Z20.822 Contact with and (suspected) exposure to COVID-19 | CPT/HCPCS: 73130 ==

== ENCOUNTER 2021-04-03 06:29 | Day surgery (SDC) | payer MEDICARE, OTHER, SELFPAY ==
[2021-04-02 08:59] VITALS: BMI 34.7
[2021-04-02 09:36] LABS: Basophils # 0.1 10^3/uL (0.0-0.1); Basophils % 0.7 %; Eosinophils # 0.1 10^3/uL (0.0-0.8); Hematocrit 36.1 % (37.0-47.0); Lymphocytes # 1.6 10^3/uL (0.8-4.8); Lymphocytes % 21.8 %; Mean Corpuscular HGB Conc 33.2 g/dL (30.0-36.0); Mean Corpuscular Hemoglobin 31.4 pg (28.0-34.0); Mean Corpuscular Volume 94.5 fl (81-99); Mean Platelet Volume 9.3 fL (7.4-10.4); Monocytes # 0.7 10^3/uL (0.2-0.9); Monocytes % 8.9 %; Neutrophils # 4.91 10^3/uL (1.8-7.7); Neutrophils % 67.3 %; Nucleated Red Blood Cells % 0 %; Platelet Count 238 10^3/cmm (130-400); Red Blood Count 3.82 10^6/uL (4.1-5.3); Red Cell Distribution Width 13.2 % (12.1-15.1); White Blood Count 7.3 10^3/uL (4.0-10.0)
[2021-04-02 09:56] LABS: Albumin Level 4.5 g/dL (3.5-5.2); Alkaline Phosphatase 103 IU/L (35-105); Anion Gap 13.3 (5-19); Aspartate Amino Transferase 18 U/L (0-32); Blood Urea Nitrogen 12 mg/dL (8-23); Calcium 9.5 mg/dL (8.5-10.5); Carbon Dioxide 27 mmol/L (22-29); Chloride 104 mmol/L (98-107); Globulin 3.4 g/dL (1.3-4.6); Glucose 94 mg/dL (65-115); Osmolality Calculated 290 mOsm/kg (285-295); Potassium 4.3 mmol/L (3.5-5.1); Sodium 140 mmol/L (136-145); Total Bilirubin 0.4 mg/dL (0.15-1.2); Total Protein 7.9 g/dL (6.6-8.7)
[2021-04-02 10:07] LABS: Alanine Aminotransferase 17 U/L (0-33)
--- NOTE | 2021-04-02 10:12 | ANES.PREANE2 ---
Pre-Anesthetic Assessment Pre-Anesthetic Assessment: Height/Weight: Height 1.57 m Weight 86.183 kg Preop Diagnosis: Right middle finger triggering Proposed Procedure: Operation Date: 04/03/21 08:00 Proposed Procedures p Trigger Finger Release right long 39124 M65.331(Right) - Mariam Holt MD Was Beta Nevin taken within 24 hours: Yes Was Clonidine taken within 24 hours: N/A Social: Social History: No alcohol and No tobacco Exam: Pre-Anes Outpt Exam: alert, oriented x 3, clear to auscultation bilaterally and regular rate & rhythm Airway: Submandibular: WNL Cervical ROM: WNL MP: 2 Dentition: False CV/HEM: CV/HEM: Arrythmia and HTN Metabolic: Metabolic: Hyperlipidemia Anesthetic Plan: ASA status: 3 Anesthesia: MAC and Regional (specify below) ([place] blk vs dig blk) Risk of > 500 ml blood loss (7ml/kg in children): No PFSH Anesthesia PFSH: Medical History Bilateral carpal tunnel syndrome Breast cancer Diabetes mellitus Hyperlipidemia Hypertension Lumbar post-laminectomy syndrome Trigger index finger of right hand Surgical History H/O breast surgery History of lumbar surgery Status post carpal tunnel release Right carpal tunnel release, DOS: 04-26-[address] Fox Left carpal tunnel release, DOS: 06-28-[address] Fox Status post colonoscopy with polypectomy (12/25/19) ascending and rectal polyp Family History Sister Diabetes Cancer Brother Cancer Denies family history of Anesthesia complication Bleeding disorder Social History Smoking and tobacco status: former smoker Alcohol intake: never Lives independently: Yes Pets and animals: Yes Pets & animals: cat(s) Data Anesthesia CBC & Chem 7: 04/02/21 09:30 04/02/21 09:30 Other Labs: Laboratory Results - last 48 hr 04/02/21 04/02/21 09:30 09:30 WBC 7.3 RBC 3.82 L Hgb 12.0 Hct 36.1 L MCV 94.5 MCH 31.4 MCHC 33.2 RDW 13.2 Plt Count 238 MPV 9.3 Neut % (Auto) 67.3 Lymph % (Auto) 21.8 [place] % (Auto) 8.9 Eos % (Auto) 1.0 Baso % (Auto) 0.7 Neut # (Auto) 4.91 Lymph # (Auto) 1.6 [place] # (Auto) 0.7 Eos # (Auto) 0.1 Baso # (Auto) 0.1 Nucleated RBC % (auto) 0 Nucleated RBCs # 0.0 Sodium 140 Potassium 4.3 Chloride 104 Carbon Dioxide 27 Anion Gap 13.3 BUN 12 Creatinine 0.8 GFR Calculation Not Reportable Glucose 94 Calculated Osmolality 290 Calcium 9.5 Total Bilirubin 0.4 AST 18 ALT 17 Alkaline Phosphatase 103 Total Protein 7.9 Albumin 4.5 Globulin 3.4 Cardiac Studies: No Data to Display
[2021-04-03 06:33] VITALS: BP 174/75; PULSE 87; RESP 18; TEMP 36.7; O2SAT 96
--- NOTE | 2021-04-03 06:51 | ANES.PAUD2 ---
Pre-Anesthetic Update Pre-Anesthetic Assessment: Date of Surgery/Procedure: 04/03/21 Preop Diagnosis: Right middle finger triggering Proposed Procedure: Operation Date: 04/03/21 08:00 Proposed Procedures p Trigger Finger Release right long 16002 M65.331(Right) - Mariam Holt MD Any changes to Pre-Anesthetic Assessment?: No Last Intake: Intake Last Liquid Date 04/02/21 Last Liquid Time 21:30 Last Solid Date 04/03/21 Last Solid Time 16:00 Labs Last 48hrs: Laboratory Results - last 48 hr 04/02/21 04/02/21 09:30 09:30 WBC 7.3 RBC 3.82 L Hgb 12.0 Hct 36.1 L MCV 94.5 MCH 31.4 MCHC 33.2 RDW 13.2 Plt Count 238 MPV 9.3 Neut % (Auto) 67.3 Lymph % (Auto) 21.8 [place] % (Auto) 8.9 Eos % (Auto) 1.0 Baso % (Auto) 0.7 Neut # (Auto) 4.91 Lymph # (Auto) 1.6 [place] # (Auto) 0.7 Eos # (Auto) 0.1 Baso # (Auto) 0.1 Nucleated RBC % (a uto) 0 Nucleated RBCs # 0.0 Sodium 140 Potassium 4.3 Chloride 104 Carbon Dioxide 27 Anion Gap 13.3 BUN 12 Creatinine 0.8 GFR Calculation Not Reportable Glucose 94 Calculated Osmolal ity 290 Calcium 9.5 Total Bilirubin 0.4 AST 18 ALT 17 Alkaline Phosphata se 103 Total Protein 7.9 Albumin 4.5 Globulin 3.4 Vitals: Temperature 98.1 F 04/03/21 06:33 Temperature Source Temporal Artery S can 04/03/21 06:33 Pulse Rate 87 04/03/21 06:33 Respiratory Rate 18 04/03/21 06:33 Blood Pressure 174/75 04/03/21 06:33 Blood Pressure Radha n 108 04/03/21 06:33 Pulse Oximetry 96 04/03/21 06:33 Oxygen Delivery Me thod 04/03/21 06:37 Exam: Pre-Anes Outpt Exam: alert, oriented x 3, clear to auscultation bilaterally and regular rate & rhythm Cardiac Studies: No Data to Display
--- NOTE | 2021-04-03 06:56 | P.HPUD_ITS ---
Surgery/Procedure H&P Update DATE OF PROCEDURE: April 03, 2021 DATE H&P PERFORMED: 03/30/21 H&P UPDATE INFORMATION: I have reviewed H&P completed within last 30 days, I have examined patient prior to procedure, No changes to prior documentation and H&P is in [facility] EMR on date indicated PREOP DIAGNOSIS: Right middle finger triggering PLANNED PROCEDURE: Operation Date: 04/03/21 08:00 Proposed Procedures p Trigger Finger Release right long 64419 M65.331(Right) - Mariam Holt MD Related Problem List Diagnoses (1) Trigger middle finger of left hand:
[2021-04-03] MEDS: CELEcoxib 200 mg Capsule 400 MG PO (07:00)
[2021-04-03] MEDS: acetaminophen 1,000 MG/100 ML PIGGYBACK 400 MG IV (07:00)
[2021-04-03] MEDS: sodium chloride 0.9% 1,000 ML 30 ML IV (07:00)
[2021-04-03 09:30] VITALS: BP 133/70; PULSE 80; RESP 18; TEMP 36.3; O2SAT 99
[2021-04-03 09:35] VITALS: BP 139/66; PULSE 79; RESP 18; TEMP 36.3; O2SAT 99
[2021-04-03 09:42] VITALS: BP 107/80; PULSE 81; RESP 18; TEMP 36.2; O2SAT 97
--- NOTE | 2021-04-03 09:54 | P.OP_ITS ---
Operative Report Date of procedure: April 03, 2021 Pre-op Diagnosis: Right middle finger triggering Post-op diagnosis: same Procedure Done: Right middle finger trigger release Pathology: none sent Surgeon: Mariam Holt Electric Mule Operator: None Anesthesia: MAC (With [place] block) Estimated blood loss (mL): 2 Tourniquet time (min): 40 Tourniquet time: At 300 mmHg IV fluids (mL): 400 Urine output (mL): 0 Urine output: No [place] Complications: None Findings: Very thickened A1 [place], congenitally very broad A1 [place] Condition: stable Disposition: PACU (Then to same-day surgery for discharge to home.) Brief History: This 76-year-old woman presented stating that she had been unable to flex her middle finger of her right hand for at least a year. She had previously had carpal tunnel and trigger finger release of a different finger. She did well following this. The surgery was performed by Dr. Fox. Today, she has significant fear of moving this long finger at all secondary to severe triggering. She notes the last time it got stuck it took her over an hour to straighten her finger. It is very painful for her. She wishes to proceed with surgical release of her right middle finger triggering. Risks and complications are discussed with her. Consents are signed. Procedure: Patient was brought to the operating theater. She was placed on the operating room table. A [place] block was administered without difficulty. Patient tolerated it well. Ancef 2 g was administered preoperatively. A tourniquet was placed high on the arm and was elevated for the [place] block. This followed exsanguination of the arm. Tourniquet time was 40 minutes at 300 mmHg. Surgical pause was performed prior to commencement of the surgical procedure. At the time of the surgical pause we identified the site and side of surgery. We also identified the patient's identity and appropriate administration of IV antibiotics. Following the surgical pause, an incision was made along the distal palmar crease beneath the long finger. Dissection continued through the skin to the subcutaneous tissues using a scalpel. Blunt dissection was then utilized to spread soft tissues and allow access to the A1 [place]. The A1 [place] was identified and was found to be quite broad proximal to distal, and it was noted to be quite thickened. The A1 [place] was then incised longitudinally and sharply using a knife. This was accomplished without difficulty and atraumatically. Once the A1 [place] was released, tendons were brought up out of the wound and evaluated. There were no gross masses on the tendons. Tendons were returned to normal position. We then irrigated the wound and subsequently closed it with 3-0 nylon with an interrupted mattress type suture. Following closure of the wound, the wound was injected with local anesthetic into the subcutaneous tissues. Sterile dressing was then placed consisting of Dermabond and OpSite, fluffed fluffs, sterile soft roll, and an Regulo wrap. The patient was returned to recovery in satisfactory condition. She will be discharged home to follow-up with me in the office. There were no complications and no specimens. Associated Problem List Diagnoses (1) Trigger middle finger of right hand:
[2021-04-03 10:15] VITALS: BP 144/72; PULSE 80; RESP 18; TEMP 36.2; O2SAT 98
--- NOTE | 2021-04-03 15:41 | ANE.PACU2 ---
Inpatient post-anesthesia follow up: Airway intact: Yes Vital signs: Temperature 97.2 F Pulse Rate 80 Respiratory Rate 18 Blood Pressure 144/72 Pulse Oximetry 98 Oxygen Delivery Me thod Room Air Oxygen Flow Rate Fraction of Inspir ed Oxygen Hydration adequate: Yes Nausea and vomiting: No Pain level: 1 Mental status: Baseline
== END 2021-04-03 10:28 | disposition home or self-care (01) ==
PROVIDERS: PCP Nurse Practitioner Family; Visit Provider Specialist
PROC: (CPT 26055; principal; 2021-04-03 07:50)
DX: M65.331 Trigger finger, right middle finger (principal); I10 Essential (primary) hypertension; Z85.3 Personal history of malignant neoplasm of breast; E11.9 Type 2 diabetes mellitus without complications; E78.5 Hyperlipidemia, unspecified; Z87.891 Personal history of nicotine dependence; Z79.84 Long term (current) use of oral hypoglycemic drugs
CPT/HCPCS: 26055; 36415; 80053; 85025; 96365; J0690; J2250; J2704; J3490; J7030

== ENCOUNTER 2021-04-28 12:47 | Outpatient (CLI) | payer MEDICARE, OTHER, SELFPAY ==
--- NOTE | 2021-04-28 12:45 | USCV_ITS ---
Sweetie Stern Age: 76 Gender: F : 1945 Exam Date: 04/28/2021 13:05 Ordering Phys: Leslie Spivey ENGINEERING GEOLOGIST Technologist: Meghna Oneil [place] [facility] [place]: dizziness and giddiness BP: 130 / 70 HR: 77 Rhythm: Sinus Technical Quality: Adequate MEASUREMENTS (Male / Female) Normal Values 2D ECHO LV Diastolic Diameter PLAX 3.7 cm 4.2 - 5.9 / 3.9 - 5.3 cm LV Systolic Diameter PLAX 1.4 cm IVS Diastolic Thickness 1.2 cm 0.6 - 1.0 / 0.6 - 0.9 cm IVS Systolic Thickness 2.0 cm LVPW Diastolic Thickness 1.2 cm 0.6 - 1.0 / 0.6 - 0.9 cm LVPW Systolic Thickness 2.0 cm LVOT Diameter 2.1 cm LV Ejection Fraction 2D Teich 91.6 % LV Ejection Fraction MOD 2C 62.8 % LV Ejection Fraction 2C AL 63.5 % LA Diameter 3.4 cm LA Width 3.4 cm LA Height 5.6 cm RA Width 2.6 cm RA Height 5.1 cm Aorta at Sinotubular Diameter 2.9 cm DOPPLER AV Peak Velocity 302.7 cm/s LVOT Peak Velocity 114.0 cm/s AV Area Cont Eq vti 1.4 cm squared AV Area Cont Eq pk 1.3 cm squared MV Peak Velocity 108.0 cm/s MV Area PHT 4.2 cm squared Mitral E to A Ratio 1.1 MV E' Velocity 60.5 cm/s Mitral E to MV E' Ratio 13.9 Mitral E to LV E' Lateral Ratio 13.6 Mitral E to LV E' Septal Ratio 14.5 TR Peak Velocity 219.7 cm/s TR Peak Gradient 19.3 mmHg Right Atrial Pressure 3.0 mmHg Pulmonary Artery Systolic Pressu 22.3 mmHg PV Peak Velocity 99.0 cm/s RV Acceleration Time 0.1 s RV Ejection Time 0.4 s RV AcT/ET 0.3 FINDINGS Left Ventricle Normal left ventricular size and systolic function, EF 66 %. Mild left ventricular hypertrophy. No regional wall motion abnormalities. Right Ventricle The right ventricle is normal in size and function. Right Atrium The right atrium is normal in size. Left Atrium The left atrium is normal in size. Mitral Valve Thickened mitral valve. Mild mitral annular calcification. Mild to moderate mitral valve regurgitation. Aortic Valve Thickened aortic valve. Mild aortic valve regurgitation. Tricuspid Valve Trace tricuspid valve regurgitation. Pulmonic Valve No gross abnormalities noted Pericardium Normal pericardium without effusion. Aorta Normal ascending aorta dimension. CONCLUSIONS Normal left ventricular size and systolic function, EF 66 %. Mild left ventricular hypertrophy. No regional wall motion abnormalities. Thickened mitral valve. Mild mitral annular calcification. Mild to moderate mitral valve regurgitation. Thickened aortic valve. Mild aortic valve regurgitation. Trace tricuspid valve regurgitation. Estimated pulmonary artery peak systolic pressure 32 mmHg. There is no pericardial effusion. There are no intracardiac masses. Compared to the study report from 12/05/2020, there may not be a significant change Dr Lizett Johns MD FACC (Electronically Signed) Final Date: 29 April 2021 00:56 S
== END 2021-04-28 12:48 | disposition home or self-care (01) ==
LOC: US 12:50
PROVIDERS: PCP Nurse Practitioner Family; Visit Provider Nurse Practitioner Family
DX: R42 Dizziness and giddiness (principal); I08.3 Combined rheumatic disorders of mitral, aortic and tricuspid valves
CPT/HCPCS: 93306

== ENCOUNTER → 2021-05-28 09:08 | Outpatient (BNVA) | payer MEDICARE, OTHER, SELFPAY | PROVIDERS: PCP Nurse Practitioner Family; Visit Provider Specialist | DX: Z20.822 Contact with and (suspected) exposure to COVID-19 (principal); M65.332 Trigger finger, left middle finger | CPT/HCPCS: 87635 ==

== ENCOUNTER 2021-06-02 06:00 | Day surgery (SDC) | payer MEDICARE, OTHER, SELFPAY ==
[2021-06-01 09:20] VITALS: BMI 36.2
[2021-06-02 06:14] VITALS: BP 175/71; PULSE 90; RESP 16; TEMP 36.1; O2SAT 97
[2021-06-02] MEDS: CELEcoxib 200 mg Capsule 400 MG PO (06:51)
--- NOTE | 2021-06-02 06:56 | P.HPUD_ITS ---
Surgery/Procedure H&P Update DATE OF PROCEDURE: June 02, 2021 DATE H&P PERFORMED: 05/13/21 H&P UPDATE INFORMATION: I have reviewed H&P completed within last 30 days, I have examined patient prior to procedure, No changes to prior documentation and H&P is in [facility] EMR on date indicated PREOP DIAGNOSIS: Left long trigger finger PLANNED PROCEDURE: Operation Date: 06/02/21 07:00 Proposed Procedures p Trigger Finger Release left long finger 94894 M65.332(Left) - Mariam Holt MD Related Problem List Diagnoses (1) Trigger middle finger of left hand:
--- NOTE | 2021-06-02 06:56 | ANES.PREANE2 ---
Pre-Anesthetic Assessment Pre-Anesthetic Assessment: Height/Weight: Height 1.57 m Weight 89.811 kg Preop Diagnosis: Left long trigger finger Proposed Procedure: Operation Date: 06/02/21 07:00 Proposed Procedures p Trigger Finger Release left long finger 19379 M65.332(Left) - Mariam Holt MD Was Beta Nevin taken within 24 hours: Yes Was Clonidine taken within 24 hours: N/A Social: Social History: No tobacco Exam: Pre-Anes Outpt Exam: alert, oriented x 3, clear to auscultation bilaterally and regular rate & rhythm Airway: Submandibular: WNL Cervical ROM: WNL MP: 3 History/ROS: No significant complaints CV/HEM: CV/HEM: HTN Metabolic: Metabolic: Morbid obesity Anesthetic Plan: ASA status: 3 Anesthesia: Anesthesia Evaluation and General Risk of > 500 ml blood loss (7ml/kg in children): No PFSH Anesthesia PFSH: Medical History Bilateral carpal tunnel syndrome Breast cancer Diabetes mellitus Hyperlipidemia Hypertension Lumbar post-laminectomy syndrome Trigger index finger of right hand Surgical History H/O breast surgery History of lumbar surgery Status post carpal tunnel release Right carpal tunnel release, DOS: 04-26-[address] Fox Left carpal tunnel release, DOS: 06-28-[address] Fox Status post colonoscopy with polypectomy (12/25/19) ascending and rectal polyp Family History Sister Diabetes Cancer Brother Cancer Denies family history of Anesthesia complication Bleeding disorder Social History Smoking and tobacco status: former smoker Alcohol intake: never Lives independently: Yes Pets and animals: Yes Pets & animals: cat(s) Data Anesthesia Cardiac Studies: Echocardiogram 04/28/21
[2021-06-02] MEDS: acetaminophen 1,000 MG/100 ML PIGGYBACK 400 MG IV (06:59)
[2021-06-02] MEDS: sodium chloride 0.9% 1,000 ML 30 ML IV (06:59)
[2021-06-02 07:05] LABS: Glucose Point of Care 102 mg/dL (70-110)
[2021-06-02 07:22] LABS: Basophils % 0.5 %; Eosinophils # 0.1 10^3/uL (0.0-0.8); Eosinophils % 1.9 %; Hemoglobin 11.2 g/dL (11.5-15.3); Lymphocytes # 1.7 10^3/uL (0.8-4.8); Lymphocytes % 22.6 %; Mean Corpuscular HGB Conc 32.9 g/dL (30.0-36.0); Mean Corpuscular Hemoglobin 31.5 pg (28.0-34.0); Mean Corpuscular Volume 95.5 fl (81-99); Mean Platelet Volume 10.1 fL (7.4-10.4); Monocytes # 0.7 10^3/uL (0.2-0.9); Monocytes % 9.9 %; Neutrophils # 4.76 10^3/uL (1.8-7.7); Nucleated Red Blood Cells % 0 %; Platelet Count 249 10^3/cmm (130-400); Red Blood Count 3.56 10^6/uL (4.1-5.3); Red Cell Distribution Width 13.7 % (12.1-15.1); White Blood Count 7.3 10^3/uL (4.0-10.0)
[2021-06-02 07:42] LABS: Alanine Aminotransferase 23 U/L (0-33); Albumin Level 4.3 g/dL (3.5-5.2); Alkaline Phosphatase 140 IU/L (35-105); Anion Gap 14.3 (5-19); Aspartate Amino Transferase 20 U/L (0-32); Blood Urea Nitrogen 15 mg/dL (8-23); Calcium 9.5 mg/dL (8.5-10.5); Carbon Dioxide 26 mmol/L (22-29); Chloride 105 mmol/L (98-107); Globulin 2.9 g/dL (1.3-4.6); Glucose 99 mg/dL (65-115); Osmolality Calculated 293 mOsm/kg (285-295); Potassium 4.3 mmol/L (3.5-5.1); Sodium 141 mmol/L (136-145); Total Bilirubin 0.4 mg/dL (0.15-1.2); Total Protein 7.2 g/dL (6.6-8.7)
[2021-06-02 08:02] VITALS: BP 130/60; PULSE 80; RESP 16; TEMP 36.3; O2SAT 99
[2021-06-02 08:06] VITALS: BP 128/66; PULSE 72; RESP 16; O2SAT 97
[2021-06-02 08:18] VITALS: BP 123/52; PULSE 77; RESP 16; TEMP 36.6; O2SAT 100
--- NOTE | 2021-06-02 08:23 | PM.OP ---
Operative Report Date of procedure: June 02, 2021 Pre-op Diagnosis: Left long trigger finger Post-op diagnosis: same Post-op Findings: Significant triggering of the left long finger Procedure Done: Left long finger trigger finger release Implants: None Pathology: none sent Surgeon: Mariam Holt Agricultural Research Engineer: None Anesthesia: MAC (With Joao block) Estimated blood loss (mL): 2 Tourniquet time (min): 35 Tourniquet time: At 300 mmHg IV fluids (mL): 400 Urine output (mL): 0 Urine output: No Contreras Complications: None Findings: Thickened, broad A1 cleveland Condition: stable Disposition: PACU (Then to same-day surgery for discharge to home) Brief History: This 76-year-old woman presented stating that she had been unable to flex her middle finger of her left hand for at least a year. Recently, she underwent right trigger finger release on April 03, and she has recovered nicely from this. She has significant triggering of the left long finger, and she does not like to move the finger as it can be very painful. She wishes to proceed with surgical release of her left middle finger triggering. Risks and complications are discussed with her. Consents are signed. Procedure: Patient was brought to the operating theater. She was placed on the operating room table. A Joao block was administered without difficulty. Patient tolerated it well. Ancef 2 g was administered preoperatively. A tourniquet was placed high on the arm and was elevated for the Joao block. This followed exsanguination of the arm. Tourniquet time was 35 minutes at 300 mmHg. Surgical pause was performed prior to commencement of the surgical procedure. At the time of the surgical pause we identified the site and side of surgery. We also identified the patient's identity and appropriate administration of IV antibiotics. Following the surgical pause, an incision was made along the distal palmar crease beneath the long finger. Dissection continued through the skin to the subcutaneous tissues using a scalpel. Blunt dissection was then utilized to spread soft tissues and allow access to the A1 cleveland. The A1 cleveland was identified and was found to be quite broad proximal to distal, and it was noted to be quite thickened. The A1 cleveland was then incised longitudinally and sharply using a knife. This was accomplished without difficulty and atraumatically. Once the A1 cleveland was released, tendons were brought up out of the wound and evaluated. There were no gross masses on the tendons. Tendons were returned to normal position. We then irrigated the wound and subsequently closed it with 3-0 nylon with an interrupted mattress type suture. Following closure of the wound, the wound was injected with local anesthetic into the subcutaneous tissues. On the day prior to admission, the patient had a skin laceration from a sewing knife. This was dorsally over the second metacarpal phalangeal joint. There was no evidence of infection. This was sterilely prepped at the beginning of the case and covered with a Tegaderm. At the end of the case, the Tegaderm was removed. Dermabond was placed over the incision for the trigger finger release as well as over this laceration. Following this, sterile dressing was placed consisting of OpSite over the surgical incision and a new Tegaderm over the laceration. This was followed by fluffed fluffs, sterile soft roll, and an Regulo wrap. The patient was returned to recovery in satisfactory condition. She will be discharged home to follow-up with me in the office. There were no complications and no specimens. Associated Problem List Diagnoses (1) Trigger middle finger of left hand:
[2021-06-02 08:51] VITALS: BP 132/57; PULSE 72; RESP 16; TEMP 36.7; O2SAT 98
--- NOTE | 2021-06-02 11:33 | ANE.PACU2 ---
Inpatient post-anesthesia follow up: Airway intact: Yes Vital signs: Temperature 98.1 F Pulse Rate 72 Respiratory Rate 16 Blood Pressure 132/57 Pulse Oximetry 98 Oxygen Delivery Me thod Room Air Oxygen Flow Rate Fraction of Inspir ed Oxygen Hydration adequate: Yes Nausea and vomiting: No Pain level: 2 Mental status: Baseline
== END 2021-06-02 09:15 | disposition home or self-care (01) ==
PROVIDERS: PCP Nurse Practitioner Family; Visit Provider Specialist
PROC: (CPT 26055; principal; 2021-06-02 07:00)
DX: M65.332 Trigger finger, left middle finger (principal); I10 Essential (primary) hypertension; E66.01 Morbid (severe) obesity due to excess calories; Z68.36 Body mass index [BMI] 36.0-36.9, adult; Z85.3 Personal history of malignant neoplasm of breast; E11.9 Type 2 diabetes mellitus without complications; E78.5 Hyperlipidemia, unspecified; Z83.3 Family history of diabetes mellitus; Z87.891 Personal history of nicotine dependence
CPT/HCPCS: 26055; 36415; 36416; 80053; 82962; 85025; 96365; J0690; J2250; J2704; J3490; J7030

== ENCOUNTER 2021-09-22 14:23 | Emergency (ER) | payer MEDICARE, OTHER, SELFPAY ==
[2021-09-22 14:59] VITALS: BP 200/65; PULSE 93; RESP 15; TEMP 36.4; O2SAT 93; BMI 37.0
--- NOTE | 2021-09-22 15:08 | XRR_ITS ---
PROCEDURE INFORMATION: Exam: XR Left Ankle Exam date and time: 09/22/2021 3:08 PM Age: 76 years old Clinical indication: Injury or trauma; Fall; Sprain or strain; Ankle; Left; Additional info: Fall with injury to left ankle. Swelling and pain TECHNIQUE: Imaging protocol: XR Left ankle. Views: 3 or more views. COMPARISON: No relevant prior studies available. FINDINGS: Bones/joints: Osseous structures are intact. Negative for fracture. Joint spaces are preserved. Small calcaneal spur and enthesophyte at the Achilles insertion noted. Soft tissues: Soft tissue swelling along the lateral ankle. XR/XR ankle LT min 3V* [id number] IMPRESSION: No acute findings.
--- NOTE | 2021-09-22 15:21 | W.ED.FALL ---
HPI - Fall General: Chief Complaint: Fall Stated Complaint: FALL W/ LEFT, ANKLE, LEG PAIN Time Seen by Provider: 09/22/21 15:08 History of Present Illness: Patient is a 76-year-old female who comes to the ED with left ankle pain after fall. Patient says she was moving her trash can and tripped on the lid causing her to roll her left foot and ankle. She denies pain running up from her midfoot up into the medial aspect of her ankle. Any movement with ankle causes pain. Weightbearing causes pain as well and she rates her current pain is 6 out of 10. Associated symptoms-after fall: Denies abdominal pain, chest pain, headache(s), hematuria or neck pain Review of Systems Const: Denies: fever(s), chills or fatigue Eyes: Denies: change in vision or eye discomfort ENMT: Denies: throat pain, odynophagia, nasal discharge or nasal congestion Card: Denies: chest pain, palpitations, edema, swelling of feet/ankles, dyspnea on exertion or orthopnea Resp: Denies: dyspnea, productive cough or non-productive cough GI: Denies: abdominal pain, nausea, vomiting, diarrhea, constipation or hematochezia : Denies: flank pain, dysuria or hematuria Musc: Reports: extremity pain (left ankle) and extremity swelling (left ankle); Denies: neck pain or back pain Skin/Breast: Denies: rash or new lesions Neuro: Denies: headache(s), numbness in extremities or weakness in extremities PFS ED PFSH: Medical History Bilateral carpal tunnel syndrome Breast cancer Diabetes mellitus Hyperlipidemia Hypertension Lumbar post-laminectomy syndrome Trigger index finger of right hand Surgical History H/O breast surgery History of lumbar surgery Status post carpal tunnel release Right carpal tunnel release, DOS: 04-26-[address] Fox Left carpal tunnel release, DOS: 06-28-[address] Fox Status post colonoscopy with polypectomy (12/25/19) ascending and rectal polyp Family History Sister Diabetes Cancer Brother Cancer Denies family history of Anesthesia complication Bleeding disorder Social History Smoking and tobacco status: former smoker Alcohol intake: never Lives independently: Yes Pets and animals: Yes Pets & animals: cat(s) Physical Exam Const: COMMON NORMALS: no acute distress, patient oriented x3 and alert HENMT: COMMON NORMALS: normocephalic HEAD & SCALP: normocephalic MOUTH: Normal oral and palatal mucosa present THROAT: posterior oropharynx normal and uvula midline Neck/C-Spine: COMMON NORMALS: supple GENERAL: Yes normal visual inspection Resp: COMMON NORMALS: normal respiratory effort, No retractions, No use of accessory muscles and clear to auscultation bilaterally AUSCULTATION: clear to auscultation bilaterally Cardio: COMMON NORMALS: regular rate, regular rhythm, S1 normal heart sound present, S2 normal heart sound present, No gallops present (Cardio), No clicks present (Cardio), No murmurs present (Cardio) and Peripheral pulses 2+ throughout RATE: regular rate RHYTHM: regular rhythm HEART SOUNDS: S1 normal heart sound present and S2 normal heart sound present PERIPHERAL PULSES: Peripheral pulses 2+ throughout GI: COMMON NORMALS: Normal to inspection, nondistended, normoactive bowel sounds present, Soft to palpation, non-tender and no masses PALPATION: Yes Soft to palpation : COMMON NORMALS: Yes no CVA tenderness BLADDER/KIDNEY EXAM: Yes no CVA tenderness Back/Pelvis: COMMON NORMALS: no CVA tenderness Extremity: LEFT LOWER EXTREMITY: Yes ankle joint Left ankle: Yes inspection (No deformity noted. No swelling noted), Yes palpation (Tenderness over medial midfoot and medial ankle), Yes ROM (Limited due to pain) and Yes neurovascular exam (Intact) Neuro: COMMON NORMALS: patient oriented x3 SENSORIUM/ORIENTATION: Yes alert Skin: GENERAL SKIN EXAM: dry skin Course Vital Signs: Vital signs: Vital Signs Temperature 97.9 F 09/22/21 17:00 Pulse Rate 93 09/22/21 17:00 Respiratory Rate 15 09/22/21 14:59 Blood Pressure 198/62 09/22/21 17:00 Pulse Oximetry 93 09/22/21 17:00 MDM - Fall Medical Decision Making Patient is a 76-year-old female comes to the ED after rolling her left ankle home. Left foot has some tenderness on the medial midfoot and medial ankle. Neurovascular intact. No deformity noted. X-ray of left ankle shows no acute fractures or findings. Patient diagnosed with a sprain and strain of left ankle and discharged home. She is told to follow-up with PCP in 5 to 7 days for evaluation. She is going to use her at home walker to help with ambulation. Return to ED precautions given. Patient understood and agree with plan. Lab Data Radiology Impressions Ankle X-Ray 09/22/21 15:08 IMPRESSION: No acute findings. Discharge Plan Discharge Patient Disposition: Home Clinical Impression: Sprain and strain of left ankle Condition: Stable Prescriptions: No Action metformin 500 mg tablet 500 mg PO DAILY 0RF rosuvastatin 10 mg tablet 10 mg PO DAILY 0RF cholecalciferol (vitamin D3) 25 mcg (1,000 unit) capsule 25 mcg PO DAILY 0RF metoprolol succinate 100 mg tablet extended release 24 hr 100 mg PO DAILY 0RF amlodipine 5 mg tablet 10 mg PO DAILY 30 Days Qty: 30 0RF lisinopril 20 mg tablet 40 mg PO DAILY 0RF tizanidine 4 mg Capsule 4 mg PO BEDTIME PRN (Reason: muscle spasm) 0RF Discharge Orders: Discharge ED (Routine); Ordered 09/22/21 Ordered By: Zechariah Kang Referrals: Leslie Spivey FNP [Primary Care Provider] - Discharge Diet: Regular Discharge Activity: Use walker/crutches as instructed Patient Instructions: Ankle Sprain (ED) Activity Restrictions/Additional Instructions: Follow-up with medical provider as directed in 5 to 7 days for reevaluation. Take paib-mst-tqsycaw ibuprofen to help with pain and inflammation. Rest, ice and elevate right ankle. Use your walker at home to help with ambulation and limit weightbearing for the next couple days then it advance activity and weightbearing as tolerated. Return to the ER or your medical provider if condition worsens. Please read and understand discharge instructions. Thank you for choosing [facility] for your healthcare needs today. Please realize this is an emergency room and that we are providing you with a medical screening exam and this may not be complete and all inclusive of all the testing and or work up that you may need to determine your ailment or severity of your illness. It is very important that you follow up as instructed or that you return to the Emergency Department should you have concerns or if your condition changes or worsens in any way. Coding Level of Care Code ED Marble Rubber for g Fwd Exam Detailed
[2021-09-22] MEDS: ketorolac 30 mg/mL INJ IM (15:59)
[2021-09-22 17:00] VITALS: BP 198/62; PULSE 93; TEMP 36.6; O2SAT 93
== END 2021-09-22 16:30 | disposition home or self-care (01) ==
PROVIDERS: Emergency Provider Physician Assistant; PCP Nurse Practitioner Family
DX: S93.402A Sprain of unspecified ligament of left ankle, initial encounter (principal); S96.912A Strain of unspecified muscle and tendon at ankle and foot level, left foot, initial encounter; E11.9 Type 2 diabetes mellitus without complications; E78.5 Hyperlipidemia, unspecified; I10 Essential (primary) hypertension; Z85.3 Personal history of malignant neoplasm of breast; Z87.891 Personal history of nicotine dependence; W22.8XXA Striking against or struck by other objects, initial encounter
CPT/HCPCS: 73610; 96372; 99283; 99291; 99292; J1885

== ENCOUNTER 2021-11-18 09:17 | Outpatient (CLI) | payer MEDICARE, OTHER, SELFPAY ==
--- NOTE | 2021-11-18 09:26 | MM_ITS ---
WS: [id number] DIAGNOSTIC BILATERAL 3D TOMOSYNTHESIS DIGITAL MAMMOGRAM WITH CAD HISTORY: HX OF BREAST CA COMPARISON: 08/15/2020, 07/20/2019 TECHNIQUE: Bilateral craniocaudad, mediolateral oblique, and mediolateral views are submitted. Comput er aided detection utilized. Breast composition: The breasts are heterogeneously dense, which may obscure small masses. Postsurgic al resection upper outer quadrant of the RIGHT breast. No recurrent mass and no calcifications. Benig n bilateral breast calcifications. MM/[place] [id number] IMPRESSION: BI-RADS: 2-Benign FOLLOW UP: 1 Year Follow-up
== END 2021-11-18 09:18 | disposition home or self-care (01) ==
LOC: RADSHAW 09:19
PROVIDERS: PCP Nurse Practitioner Family; Visit Provider Internal Medicine Hematology & Oncology
DX: Z85.3 Personal history of malignant neoplasm of breast (principal)
CPT/HCPCS: 77062

== ENCOUNTER → 2022-03-09 14:18 | Outpatient (BNVA) | payer MEDICARE, OTHER, SELFPAY | PROVIDERS: PCP Nurse Practitioner Family; Referring Provider Nurse Practitioner Family; Visit Provider Podiatrist Foot & Ankle Surgery | DX: L60.3 Nail dystrophy (principal); M79.671 Pain in right foot; M79.672 Pain in left foot; M21.41 Flat foot [pes planus] (acquired), right foot; M21.42 Flat foot [pes planus] (acquired), left foot; M20.41 Other hammer toe(s) (acquired), right foot; M20.42 Other hammer toe(s) (acquired), left foot; E11.21 Type 2 diabetes mellitus with diabetic nephropathy | CPT/HCPCS: 11721; 99204 ==

== ENCOUNTER 2022-06-11 10:54 | Outpatient (CLI) | payer MEDICARE, OTHER, SELFPAY ==
--- NOTE | 2022-06-11 11:15 | USCV_ITS ---
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 Technologist: Meghna Oneil [place] [facility] [place]: HTN, peripheral edema BP: 138 / 82 HR: 76 Rhythm: Sinus Technical Quality: Good MEASUREMENTS (Male / Female) Normal Values 2D ECHO LV Diastolic Diameter PLAX 4.2 cm 4.2 - 5.9 / 3.9 - 5.3 cm LV Systolic Diameter PLAX 2.0 cm IVS Diastolic Thickness 1.4 cm 0.6 - 1.0 / 0.6 - 0.9 cm IVS Systolic Thickness 2.0 cm LVPW Diastolic Thickness 1.1 cm 0.6 - 1.0 / 0.6 - 0.9 cm LVPW Systolic Thickness 2.0 cm LVOT Diameter 2.1 cm LV Ejection Fraction 2D Teich 83.1 % LV Ejection Fraction MOD 2C 71.4 % LV Ejection Fraction 2C AL 74.1 % LA Diameter 3.3 cm LA Width 3.9 cm LA Height 5.7 cm RA Width 2.5 cm RA Height 4.6 cm Aorta at Sinotubular Diameter 2.3 cm IVC Diameter 1.3 cm M-MODE MV E Point Septal Separation 0.4 cm DOPPLER AV Peak Velocity 317.0 cm/s LVOT Peak Velocity 110.0 cm/s AV Area Cont Eq vti 1.4 cm squared AV Area Cont Eq pk 1.2 cm squared MV Peak Velocity 121.0 cm/s MV Area PHT 3.5 cm squared Mitral E to A Ratio 0.9 MV E' Velocity 50.5 cm/s Mitral E to MV E' Ratio 8.3 Mitral E to LV E' Lateral Ratio 12.7 Mitral E to LV E' Septal Ratio 6.3 TR Peak Velocity 215.0 cm/s TR Peak Gradient 18.5 mmHg Right Atrial Pressure 3.0 mmHg Pulmonary Artery Systolic Pressu 21.5 mmHg PV Peak Velocity 130.0 cm/s RV Acceleration Time 0.1 s RV Ejection Time 0.3 s RV AcT/ET 0.5 FINDINGS Left Ventricle Normal left ventricular size, systolic function and mildly increased wall thickness, with no regional wall motion abnormalities. Left ventricular ejection fraction is estimated at 65 %. Grade II diastolic dysfunction, moderately elevated filling pressures. Right Ventricle Normal right ventricular size and systolic function. Right ventricular systolic pressure 29 mmHg. Right Atrium Normal right atrial size. Left Atrium Mildly increased left atrial size. Mitral Valve Structurally normal mitral valve. No mitral valve stenosis. Mild mitral valve regurgitation. Aortic Valve Moderaely thickened and calcified trileaflet aortic valve. Mild aortic valve stenosis, peak velocity 3.2 m/s, peak gradient 41 mm Hg, mean gradient 22 mmHg, HUGO 1.6 cm squared. Mild aortic valve regurgitation. Tricuspid Valve Structurally normal tricuspid valve. No tricuspid valve stenosis. Trace to mild tricuspid valve regurgitation. Pulmonic Valve Structurally normal pulmonic valve. No pulmonary valve stenosis. Trace pulmonary valve regurgitation. Pericardium No pericardial effusion. Aorta Normal size aortic root and proximal ascending aorta. IVC Normal IVC dimension with >50% respiratory change of the inferior vena cava. CONCLUSIONS 1. Normal left ventricular size, systolic function and mildly increased wall thickness, with no regional wall motion abnormalities. Left ventricular ejection fraction is estimated at 65 %. Grade II diastolic dysfunction, moderately elevated filling pressures. 2. Mild aortic valve stenosis, peak velocity 3.2 m/s, peak gradient 41 mm Hg, mean gradient 22 mmHg, HUGO 1.6 cm squared. Mild aortic valve regurgitation. 3. Mild mitral valve regurgitation. 4. Mild pulmonary hypertension with pulomonary artery pressure estimated at 29 mm Hg. 5. When compared to study dated 04/28/21, there is aortic stenosis now. Radha Yusuf MD (Electronically Signed) Final Date: 12 June 2022 11:55 S
== END 2022-06-11 10:55 | disposition home or self-care (01) ==
LOC: RAD 10:56
PROVIDERS: PCP Nurse Practitioner Family; Visit Provider Nurse Practitioner Family
DX: R60.9 Edema, unspecified (principal); I10 Essential (primary) hypertension; I27.20 Pulmonary hypertension, unspecified; I35.0 Nonrheumatic aortic (valve) stenosis; I34.0 Nonrheumatic mitral (valve) insufficiency
CPT/HCPCS: 93306

== ENCOUNTER → 2022-07-06 10:50 | Outpatient (BNVA) | payer MEDICARE, OTHER, SELFPAY | PROVIDERS: PCP Nurse Practitioner Family; Visit Provider Podiatrist Foot & Ankle Surgery | DX: M21.41 Flat foot [pes planus] (acquired), right foot (principal); M21.42 Flat foot [pes planus] (acquired), left foot; M20.41 Other hammer toe(s) (acquired), right foot; M20.42 Other hammer toe(s) (acquired), left foot; E11.21 Type 2 diabetes mellitus with diabetic nephropathy; L60.3 Nail dystrophy; Z79.84 Long term (current) use of oral hypoglycemic drugs | CPT/HCPCS: 11721; 99213 ==

== ENCOUNTER → 2022-08-12 13:02 | Outpatient (BNVA) | payer MEDICARE, OTHER, SELFPAY | PROVIDERS: PCP Nurse Practitioner Family; Visit Provider Internal Medicine Cardiovascular Disease | DX: I10 Essential (primary) hypertension (principal); Z87.891 Personal history of nicotine dependence; R06.02 Shortness of breath; I35.0 Nonrheumatic aortic (valve) stenosis | CPT/HCPCS: 93005; 99204; Q3014 ==

== ENCOUNTER → 2022-08-17 08:04 | Outpatient (BNVA) | payer MEDICARE, OTHER, SELFPAY | PROVIDERS: PCP Nurse Practitioner Family; Visit Provider Podiatrist Foot & Ankle Surgery | DX: E11.8 Type 2 diabetes mellitus with unspecified complications (principal); M21.41 Flat foot [pes planus] (acquired), right foot; M21.42 Flat foot [pes planus] (acquired), left foot; M20.41 Other hammer toe(s) (acquired), right foot; M20.42 Other hammer toe(s) (acquired), left foot; E11.21 Type 2 diabetes mellitus with diabetic nephropathy; L60.3 Nail dystrophy; I73.9 Peripheral vascular disease, unspecified | CPT/HCPCS: 11721 ==

== ENCOUNTER 2022-09-09 06:54 | Outpatient (CLI) | payer MEDICARE, OTHER, SELFPAY ==
--- NOTE | 2022-09-09 07:00 | USCV_ITS ---
Stern Sweetie Age: 77 Gender: F : 1945 Exam Date: 09/09/2022 07:21 Ordering Phys: Radha Yusuf MD ([email or web address]) Technologist: Keyur Gupta [place] [facility] [place]: carotid artery disease Risk Factors: Previous Vascular Surgery: Right Brachial BP: / Left Brachial BP: / Right Left Velocity (cm/s) Spectral Plaque Velocity (cm/s) Spectral Plaque Syst/Diast Broadening Syst/Diast Broadening 91.00/ 19.70 Prox CCA 105.10/ 19.30 83.90/ 7.30 Mid CCA 70.10 / 16.90 71.50/ 14.80 Distal CCA 68.40 / 21.40 123.60/18.40 Prox ICA 71.50 / 20.20 114.00/22.00 Mid ICA 94.80 / 24.90 102.50/29.50 Distal ICA 111.40/ 36.40 192.50 ECA 155.40 1.36 ICA/CCA 1.35 Antegrade Vertebral Antegrade 44.10/ 9.90 cm/s 75.00/ 19.80 cm/s Tri Subclavian Tri 177.1 177.5 0 0 FINDINGS Comparison:. 11/25/17. No significant elevation of systolic or diastolic velocities. Tortuous carotid arteries with scattered plaque. Antegrade vertebral arteries. CONCLUSIONS Bilateral ICA stenosis less than 50%. Mild diffuse carotid atherosclerosis. Dr. Marianela Lock DO (Electronically Signed) Final Date: 09 September 2022 07:52 S
== END 2022-09-09 06:55 | disposition home or self-care (01) ==
LOC: RAD 06:58
PROVIDERS: PCP Nurse Practitioner Family; Visit Provider Internal Medicine Cardiovascular Disease
DX: I65.23 Occlusion and stenosis of bilateral carotid arteries (principal)
CPT/HCPCS: 93880

== ENCOUNTER 2022-09-14 07:47 | Outpatient (CLI) | payer MEDICARE, OTHER, SELFPAY ==
--- NOTE | 2022-09-14 | ECG_ITS ---
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 Interpretive Statements NAME OF STUDY: EXERCISE SESTAMIBI STRESS TEST INDICATION: Chest Pain, PROCEDURE: The baseline electrocardiogram showed sinus tachycardia with nonspecific T wave changes mostly in the inferior leads. At the baseline, the patient's blood pressure was mm Hg with a heart rate of. The patient exercised for 3 minutes and 53 seconds on a standard Myles protocol. Patient attained a maximum heart rate of 174 beats per minute(143% of the maximum predicted heart rate) with a blood pressure at the peak exercise was not obtained. The EKG at the peak exercise revealed around [address] depressions in leads II, III, aVF, V5 and V6. Patient did not have any chest pain or any significant arrhythmis with the exercise Sestamibi was injected 1 minute prior to the peak exercise During the recovery phase, there were no new changes. Blood pressure at the end of the recovery phase was 166/58 mm Hg with a heart rate of 109 per minute. The EKG at the end of the record reveals creatinine almost back to the baseline CONCLUSION: 1. Abnormal EKG response to treadmill exercise suggesting inferolateral ischemia 2. No exercise-induced chest pain or cardiac arrhythmia 3. Impaired exercise tolerance, attained a maximum of 7.0 METs 4. Sestamibi/Sestamibi perfusion results pending; see separate report. Electronically Signed On 09-18-2022 13:47:18 CONCRETE VIBRATOR OPERATOR by Lizett Johns M.D. [id number]
--- NOTE | 2022-09-14 08:16 | NMCV_ITS ---
NM jonny perf SPECT r/s* [id number] Sweetie Stern Age: 77 Gender: F : 1945 Exam Date: 09/14/2022 09:13 Ordering Phys: Radha Yusuf MD ([email or web address]) Technologist: MICHEAL Zamora Exam Location: [facility] Indications: CHEST PAIN STRESS TEST Please see separate stress test report in [facility] for full findings IMAGE PROTOCOL Rest/Stress 1 Exercise Day Radiopharmaceutical Dose (mCi) Administration Site Administered by Rest: Tc-99m 10.5 IV Sestamibi Stress:Tc-99m 32.7 IV MICHEAL Jay Sestamibi Rest: 14-Sep-2022 60 Discovery 630 Stress: 14-Sep-2022 30 Discovery 630 Radiopharmaceutical was injected at 100% maximum heart rate. Supine position only as patient was unable to lay prone. SPECT RESULTS Technical Quality: Excellent Raw Data Analysis: Normal Image Corrections: Patient motion artifact - motion correction applied Summed Stress Score: 2 Summed Rest Score: 0 Summed Difference Score: 2 PERFUSION FINDINGS SPECT images demonstrate homogeneous tracer distribution throughout the myocardium. FUNCTIONAL RESULTS (calculated via Gated SPECT) Stress Image LV EF (%): 80 Stress EDV (mL):59 TID: 0.94 Stress ESV (mL):12 FUNCTIONAL FINDINGS: The left ventricle is normal in size. Transient Ischemia Dilatation of 0.94. The left ventricular ejection fraction is normal with a value of 80%. There is hyperdynamic left ventricular wall thickening. IMPRESSIONS 1. Myocardial perfusion imaging is normal. 2. Overall left ventricular systolic function is normal without regional wall motion abnormalities, LVEF=80%. 3. EKG portion of the study will be reported separately. 4. Scan indicates low risk for cardiac events. Radha Yusuf MD (Electronically Signed) Final Date: 21 September 2022 20:15 S
[2022-09-14 10:14] VITALS: BP 166/58; PULSE 117
== END 2022-09-14 07:48 | disposition home or self-care (01) ==
LOC: CDL 07:52
PROVIDERS: PCP Nurse Practitioner Family; Visit Provider Internal Medicine Cardiovascular Disease
DX: R07.9 Chest pain, unspecified (principal)
CPT/HCPCS: 36415; 78452; 93017; 96374; A9500

== ENCOUNTER → 2022-11-03 08:47 | Outpatient (BNVA) | payer MEDICARE, OTHER, SELFPAY | PROVIDERS: PCP Nurse Practitioner Family; Visit Provider Specialist | DX: M65.341 Trigger finger, right ring finger (principal) | CPT/HCPCS: 73130; 99214 ==

== ENCOUNTER → 2022-11-11 14:09 | Outpatient (BNVA) | payer MEDICARE, OTHER, SELFPAY | PROVIDERS: PCP Nurse Practitioner Family; Visit Provider Nurse Practitioner Family | DX: I11.9 Hypertensive heart disease without heart failure (principal); I35.0 Nonrheumatic aortic (valve) stenosis; Z87.891 Personal history of nicotine dependence; Z79.82 Long term (current) use of aspirin | CPT/HCPCS: 99214 ==

== ENCOUNTER → 2022-11-18 08:23 | Outpatient (BNVA) | payer MEDICARE, OTHER, SELFPAY | PROVIDERS: PCP Nurse Practitioner Family; Visit Provider Podiatrist Foot & Ankle Surgery | DX: I73.9 Peripheral vascular disease, unspecified (principal); E11.8 Type 2 diabetes mellitus with unspecified complications; L60.3 Nail dystrophy; E11.21 Type 2 diabetes mellitus with diabetic nephropathy; M20.42 Other hammer toe(s) (acquired), left foot; M20.41 Other hammer toe(s) (acquired), right foot; M21.42 Flat foot [pes planus] (acquired), left foot; M21.41 Flat foot [pes planus] (acquired), right foot; Z79.84 Long term (current) use of oral hypoglycemic drugs | CPT/HCPCS: 11721 ==

== ENCOUNTER 2022-11-19 07:36 | Day surgery (SDC) | payer MEDICARE, OTHER, SELFPAY ==
[2022-11-18 16:17] VITALS: BMI 36.8
[2022-11-19 07:42] VITALS: BP 178/85; PULSE 82; RESP 18; TEMP 36.5; O2SAT 96
--- NOTE | 2022-11-19 08:07 | ANES.PREANE2 ---
Pre-Anesthetic Assessment Height/Weight: Height 1.55 m Weight 88.451 kg Temp Pulse Resp BP Pulse Ox O2 Del Method 97.7 F 82 18 178/85 96 Room Air 11/19/22 07:42 11/19/22 07:42 11/19/22 07:42 11/19/22 07:42 11/19/22 07:42 11/19/22 07:49 Preop Diagnosis: Right ring finger triggering Operation Date: 11/19/22 09:05 Proposed Procedures p RIGHT RING FINGER TRIGGER FINGER RELEASE [id number], M65.30(Right) - Mariam Holt MD Familial anesthetic complications: none Was Beta Nevin taken within 24 hours: Yes Was Clonidine taken within 24 hours: N/A Last intake: Intake Last Liquid Date 11/18/22 Last Liquid Time 22:00 Last Solid Date 11/18/22 Last Solid Time 18:00 Last Intake: 22:00 Social No alcohol and No tobacco Exam alert, oriented x 3, clear to auscultation bilaterally and regular rate & rhythm (murmur) Airway Submandibular: within normal limits Cervical ROM: within normal limits Mallampati: Class II Dentition: full Pulmonary None reported CV/HEM Stable Angina, Congestive Heart Failure and Hypertension Aortic stenosis with 1.6 None reported Hepatic None reported GI None reported Metabolic Diabetes Mellitus Musc/skel Lower Back Pain and Osteoarthritis/DJD Neuropsych None reported Anesthetic Plan ASA status: 3 Anesthesia: General Risk of > 500 ml blood loss (7ml/kg in children): No Medications/Allergies Home Medications Medication Instructions Recorded Confirmed Last Taken Type metformin 500 mg tablet 500 mg PO DAILY 08/17/19 11/19/22 11/18/22 History rosuvastatin 10 mg tablet 10 mg PO DAILY 08/17/19 11/19/22 11/18/22 History metoprolol succinate 100 mg 100 mg PO DAILY 12/04/20 11/19/22 11/19/22 History tablet,extended release 24 hr amlodipine 5 mg tablet 10 mg PO DAILY 30 days #30 tabs 12/06/20 11/19/22 11/18/22 Rx cholecalciferol (vitamin D3) 25 25 mcg PO DAILY 03/30/21 11/19/22 11/18/22 History mcg (1,000 unit) capsule lisinopril 20 mg tablet 40 mg PO DAILY 04/02/21 11/19/22 11/18/22 History tizanidine 4 mg capsule 4 mg PO BEDTIME PRN muscle spasm 04/02/21 11/19/22 11/18/22 History acetaminophen 500 mg tablet 500 mg PO Q6H PRN Pain 08/12/22 11/19/22 11/18/22 History (Acetaminophen Extra Strength) albuterol sulfate 90 mcg/actuation 2 puff inhalation Q6H PRN Wheezing 08/12/22 11/19/22 11/16/22 History aerosol inhaler (Ventolin HFA) furosemide 20 mg tablet 20 mg PO DAILY 08/12/22 11/19/22 11/16/22 History ibuprofen 400 mg tablet 400 mg PO DAILY PRN Pain 08/12/22 11/19/22 11/12/22 History potassium chloride 10 mEq 10 meq PO DAILY 08/12/22 11/19/22 11/16/22 History tablet,extended release vitamin B complex (B 1 tab PO DAILY 08/12/22 11/19/22 11/18/22 History Complex-Vitamin B12 tablet) Diabetic Shoes with 3 pairs of #1 ea 08/17/22 11/18/22 Unknown Rx inserts aspirin 81 mg tablet,delayed 81 mg PO DAILY #90 tabs 09/23/22 11/18/22 11/14/22 Rx release (Adult Low Dose Aspirin) isosorbide mononitrate 30 mg 15 mg PO DAILY #45 tabs 09/23/22 11/19/22 11/18/22 Rx tablet,extended release 24 hr gabapentin 300 mg capsule 300 mg PO TID 11/18/22 11/19/22 11/19/22 History Allergies Allergy/AdvReac Type Severity Reaction Status Date / Time tramadol Allergy Severe ALGY-Swell Verified 11/19/22 07:46 Lip/Tongue/Throat hydrocodone Allergy RASH Verified 11/19/22 07:46 PFS Anesthesia Medical History Aortic stenosis Bilateral carpal tunnel syndrome Breast cancer Diabetes mellitus Hyperlipidemia Hypertension Lumbar post-laminectomy syndrome Trigger index finger of right hand Surgical History H/O breast surgery History of lumbar surgery Status post carpal tunnel release Right carpal tunnel release, DOS: 04-26-[address] Fox Left carpal tunnel release, DOS: 06-28-[address] Fox Status post colonoscopy with polypectomy (12/25/19) ascending and rectal polyp Family History Sister Diabetes Cancer Brother Cancer Social History Smoking and tobacco status: former smoker Alcohol intake: never Lives independently: Yes Pets and animals: Yes Pets & animals: cat(s) Data Anesthesia Cardiac Studies: Echocardiogram 06/11/22 Echocardiogram Ultrasound 12/05/20 Sestamibi Stress Test (Cardiology) 09/14/22
[2022-11-19] MEDS: CELEcoxib 200 mg Capsule 400 MG PO (08:11)
[2022-11-19] MEDS: acetaminophen 1,000 MG/100 ML PIGGYBACK 400 MG IV (08:11)
[2022-11-19] MEDS: sodium chloride 0.9% 1,000 ML 30 ML IV (08:17)
--- NOTE | 2022-11-19 08:22 | W.PM.OPSUD ---
Surgery/Procedure H&P Update DATE OF PROCEDURE: November 19, 2022 DATE H&P PERFORMED: 11/03/22 H&P UPDATE INFORMATION: I have reviewed H&P completed within last 30 days, I have examined patient prior to procedure, No changes to prior documentation and H&P is in [facility] EMR on date indicated PREOP DIAGNOSIS: Right ring finger triggering PLANNED PROCEDURE: Operation Date: 11/19/22 09:05 Proposed Procedures p RIGHT RING FINGER TRIGGER FINGER RELEASE [id number], M65.30(Right) - Mariam Holt MD Related Problem List Diagnoses (1) Trigger finger, right ring finger:
[2022-11-19] MEDS: ceFAZolin 2,000 MG in sodium chloride 0.9% (plus) 50 ML 100 MG IV (08:33)
[2022-11-19 09:27] VITALS: BP 162/77; PULSE 87; RESP 14; TEMP 36.1; O2SAT 97
[2022-11-19 09:30] VITALS: BP 161/89; PULSE 78; RESP 14; O2SAT 97
[2022-11-19 09:35] VITALS: BP 136/90; PULSE 75; RESP 15; O2SAT 97
--- NOTE | 2022-11-19 09:35 | P.OP_ITS ---
Operative Report Date of procedure: November 19, 2022 Pre-op diagnosis: Right ring finger triggering Post-op diagnosis: Right ring finger trigger only with some scar tissue from release of long finger triggering Post-op findings: Significant tightness to the A1 [place] over the ring finger. Some residual scar from the release of the patient's long finger. Procedure done: Release right ring finger triggering and debridement of hypertrophic scarring right long finger Pathology: none sent Surgeon: Mariam Holt Operations Research Analyst: None Anesthesia: General (With LMA, ASA 3) Estimated blood loss (mL): 1 Tourniquet time (min): 22 (At 250 mmHg) IV fluids (mL): 500 Urine output (mL): 0 (No Contreras) Complications: None Findings: Significant compression across the ring finger at the A1 [place] on the flexor tendons. Residual soft tissue scarring from release of the long finger trigger finger Condition: stable Disposition: PACU (Then return to same-day surgery for discharge to home) Brief History: This is an established 77 year old female patient here today for release of right ring finger triggering. She states she has noticed her ring finger catching and locking up for over a year. She states it randomly triggers through out the day. She reports difficulty petting her cat, holding a coffee cup, and curling her hair. She explains she typically wraps her ring finger and pinky finger together, to prevent it from locking up. She reports pain that radiates into the palm of her hand. She reports a surgical history of a right long trigger finger release DOS: 04/03/21 and left long trigger finger release DOS:06/02/21. She also notes she has some residual tightness at the base of her long finger from her previous release. We have discussed the possibility of releasing some of the scar tissue with the current incision. Procedure: Patient was brought to the operating theater. She was placed on the operating room table. A general anesthetic per LMA, ASA 3 was administered without difficulty. The patient tolerated it well. Prophylactically, the patient also received 2 g of Ancef. A tourniquet was placed high on the arm, the arm was exsanguinated after administration of the anesthetic, and the tourniquet was elevated to 250 mmHg for a total of 22 minutes. Surgical pause was performed prior to commencement of the surgical procedure. At the time of the surgical pause we identified the site and side of surgery. We also identified the patient's identity and appropriate administration of IV antibiotics. Following the surgical pause, an incision was made along the distal palmar crease beneath the ring finger. This incision was extended slightly radially to address the tightness the patient was experiencing from her previous long finger trigger release. Dissection continued through the skin to the subcutaneous tis sues using a scalpel. Blunt dissection was then utilized to spread soft tissues and allow access to the A1 [place] of the ring finger. It was then incised longitudinally and sharply using a knife. This was accomplished without difficulty and atraumatically. Once the A1 cle[place] was released, tendons were brought up out of the wound and evaluated. There were no gross masses on the tendons. Tendons were returned to normal position. Soft tissue scarring along the radial border of the incision was debrided and released. We then irrigated the wound and subsequently closed it with 3-0 nylon with an interrupted mattress type suture. Following closure of the wound, the wound was injected into the subcutaneous tissues with local anesthetic. Sterile dressing was then placed consisting of Dermabond, OpSite, fluffed fluffs, sterile soft roll, and an Regulo wrap. The patient was returned to recovery in satisfactory condition. She will be discharged home to follow-up with me in the office. There were no complications and no specimens. 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
--- NOTE | 2022-11-19 13:56 | ANE.PACU2 ---
Inpatient post-anesthesia follow up: Airway intact: Yes Vital signs: Temperature 97.0 F Pulse Rate 75 Respiratory Rate 15 Blood Pressure 136/90 Pulse Oximetry 97 Oxygen Delivery Me thod Room Air Oxygen Flow Rate Fraction of Inspir ed Oxygen Hydration adequate: Yes Nausea and vomiting: No Pain level: 2 Mental status: Baseline
[2022-11-19 15:39] LABS: Glucose Point of Care 108 mg/dL (70-110)
== END 2022-11-19 10:21 | disposition home or self-care (01) ==
PROVIDERS: PCP Nurse Practitioner Family; Visit Provider Specialist
PROC: (CPT 26055; principal; 2022-11-19 08:55)
DX: M65.341 Trigger finger, right ring finger; M24.541 Contracture, right hand; I11.0 Hypertensive heart disease with heart failure; I50.9 Heart failure, unspecified; E11.9 Type 2 diabetes mellitus without complications; E78.5 Hyperlipidemia, unspecified; Z87.891 Personal history of nicotine dependence; Z79.84 Long term (current) use of oral hypoglycemic drugs; Z79.82 Long term (current) use of aspirin; M19.90 Unspecified osteoarthritis, unspecified site; L90.5 Scar conditions and fibrosis of skin; T81.89XA Other complications of procedures, not elsewhere classified, initial encounter; Y83.8 Other surgical procedures as the cause of abnormal reaction of the patient, or of later complication, without mention of misadventure at the time of the procedure
CPT/HCPCS: 11042; 26055; 36416; 82962; J0131; J0690; J2405; J2704; J3010; J3490; J7030

== ENCOUNTER → 2022-12-03 10:31 | Outpatient (BNVA) | payer MEDICARE, SELFPAY | PROVIDERS: PCP Nurse Practitioner Family; Visit Provider Nurse Practitioner Family | DX: Z98.890 Other specified postprocedural states (principal); M65.331 Trigger finger, right middle finger | CPT/HCPCS: 99024 ==

== ENCOUNTER 2022-12-30 07:55 | Outpatient (CLI) | payer MEDICARE, OTHER, SELFPAY ==
--- NOTE | 2022-12-30 08:24 | MM_ITS ---
WS: [id number] DIAGNOSTIC BILATERAL DIGITAL BREAST TOMOSYNTHESIS MAMMOGRAPHY WITH CAD HISTORY: hx OF BREAST CANCER COMPARISON: 11/18/2021, 08/15/2020 TECHNIQUE: Bilateral craniocaudad, mediolateral oblique, and mediolateral views are submitted with to mosmercedes and SM. Computer aided detection utilized. Breast composition: There are scattered areas of fibroglandular density. Mild volume loss RIGHT breas t from prior lumpectomy. Dense breast arterial calcifications within each breast. There are no suspic ious or recurrent masses identified. No new clusters of calcifications. MM/[place] [id number] IMPRESSION: BI-RADS: 2-Benign FOLLOW UP: 1 Year Follow-up
== END 2022-12-30 07:56 | disposition home or self-care (01) ==
PROVIDERS: PCP Nurse Practitioner Family; Visit Provider Internal Medicine Hematology & Oncology
DX: Z85.3 Personal history of malignant neoplasm of breast (principal)
CPT/HCPCS: 77062; G0279

== ENCOUNTER → 2023-02-10 08:52 | Outpatient (BNVA) | payer MEDICARE, OTHER, SELFPAY | PROVIDERS: PCP Nurse Practitioner Family; Visit Provider Podiatrist Foot & Ankle Surgery | DX: E11.21 Type 2 diabetes mellitus with diabetic nephropathy (principal); L60.3 Nail dystrophy; L84 Corns and callosities; I73.9 Peripheral vascular disease, unspecified; M21.41 Flat foot [pes planus] (acquired), right foot; M21.42 Flat foot [pes planus] (acquired), left foot; M20.41 Other hammer toe(s) (acquired), right foot; M20.42 Other hammer toe(s) (acquired), left foot; Z79.84 Long term (current) use of oral hypoglycemic drugs | CPT/HCPCS: 11056; 11721 ==

== ENCOUNTER → 2023-02-21 14:40 | Outpatient (BNVA) | payer MEDICARE, OTHER, SELFPAY | PROVIDERS: PCP Nurse Practitioner Family; Visit Provider Internal Medicine Cardiovascular Disease | DX: R06.02 Shortness of breath (principal); I11.9 Hypertensive heart disease without heart failure; I35.0 Nonrheumatic aortic (valve) stenosis; E78.5 Hyperlipidemia, unspecified; E11.9 Type 2 diabetes mellitus without complications; Z87.891 Personal history of nicotine dependence; Z79.84 Long term (current) use of oral hypoglycemic drugs | CPT/HCPCS: 99214 ==

== ENCOUNTER → 2023-05-12 08:16 | Outpatient (BNVA) | payer MEDICARE, OTHER, SELFPAY | PROVIDERS: PCP Nurse Practitioner Family; Visit Provider Podiatrist Foot & Ankle Surgery | DX: L60.8 Other nail disorders (principal); L84 Corns and callosities; L60.3 Nail dystrophy; M21.41 Flat foot [pes planus] (acquired), right foot; M21.42 Flat foot [pes planus] (acquired), left foot; M20.41 Other hammer toe(s) (acquired), right foot; M20.42 Other hammer toe(s) (acquired), left foot; I73.9 Peripheral vascular disease, unspecified; E11.21 Type 2 diabetes mellitus with diabetic nephropathy; Z79.84 Long term (current) use of oral hypoglycemic drugs | CPT/HCPCS: 11056; 11721 ==

== ENCOUNTER 2023-06-06 13:26 | Outpatient (CLI) | payer MEDICARE, OTHER, SELFPAY ==
--- NOTE | 2023-06-06 13:45 | USCV_ITS ---
Sweetie Stern Age: 78 Gender: F : 1945 Exam Date: 06/06/2023 13:48 Ordering Phys: Radha Yusuf MD ([email or web address]) Technologist: TREVOR [place] [facility] [place]: non rheumatic BP: 122 / 80 HR: 83 Rhythm: Sinus Technical Quality: Adequate MEASUREMENTS (Male / Female) Normal Values 2D ECHO LV Diastolic Diameter PLAX 4.5 cm 4.2 - 5.9 / 3.9 - 5.3 cm LV Systolic Diameter PLAX 2.3 cm IVS Diastolic Thickness 1.3 cm 0.6 - 1.0 / 0.6 - 0.9 cm IVS Systolic Thickness 1.9 cm LVPW Diastolic Thickness 1.2 cm 0.6 - 1.0 / 0.6 - 0.9 cm LVPW Systolic Thickness 2.1 cm LVOT Diameter 2.0 cm LV Ejection Fraction 2D Teich 80.2 % LV Ejection Fraction MOD 2C 70.4 % LV Ejection Fraction 2C AL 70.4 % LA Diameter 3.6 cm LA Width 4.6 cm LA Height 6.5 cm RA Width 3.2 cm RA Height 5.1 cm Aorta at Sinotubular Diameter 2.6 cm IVC Diameter 1.1 cm M-MODE Aortic Annulus Diameter 2.3 cm LA Ao Ratio MM 1.8 MV E Point Septal Separation 0.5 cm DOPPLER AV Peak Velocity 330.3 cm/s LVOT Peak Velocity 106.0 cm/s AV Area Cont Eq vti 1.1 cm squared AV Area Cont Eq pk 1.0 cm squared MV Peak Velocity 109.0 cm/s MV Area PHT 3.1 cm squared Mitral E to A Ratio 0.8 MV E' Velocity 47.5 cm/s Mitral E to MV E' Ratio 7.6 Mitral E to LV E' Lateral Ratio 12.0 Mitral E to LV E' Septal Ratio 5.6 TR Peak Velocity 259.8 cm/s TR Peak Gradient 27.0 mmHg Right Atrial Pressure 5.0 mmHg Pulmonary Artery Systolic Pressu 32.0 mmHg PV Peak Velocity 123.0 cm/s RV Acceleration Time 0.2 s RV Ejection Time 0.3 s RV AcT/ET 0.5 FINDINGS Left Ventricle Normal left ventricular size, systolic function and wall thickness, with no regional wall motion abnormalities. Left ventricular ejection fraction is estimated at 70 %. Normal diastolic function. Right Ventricle Normal right ventricular size and systolic function. Right ventricular systolic pressure 35 mmHg. Right Atrium Normal right atrial size. Left Atrium Mildly increased left atrial size. Mitral Valve Mild mitral annular calcification. Structurally normal mitral valve. No mitral valve stenosis. Mild eccentric mitral valve regurgitation. Aortic Valve Moderately thickened and calcified trileaflet aortic valve. Moderate aortic valve stenosis with peak velcoity 3.5 m/s. peak gradient 48 mm Hg, mean gradient 25 mm Hg and HUGO 1 cm2. Moderate aortic valve regurgitation. Tricuspid Valve Structurally normal tricuspid valve. No tricuspid valve stenosis. Trace tricuspid valve regurgitation. Pulmonic Valve Pulmonic valve not well visualized. No pulmonary valve stenosis. Trace pulmonary valve regurgitation. Pericardium No pericardial effusion. Aorta Normal size aortic root and proximal ascending aorta. IVC Normal IVC dimension with >50% respiratory change of the inferior vena cava. CONCLUSIONS 1. Normal left ventricular size, systolic function and moderately increased wall thickness, with no regional wall motion abnormalities. Left ventricular ejection fraction is estimated at 70 %. Normal diastolic function. 2. Moderate aortic valve stenosis with peak velcoity 3.5 m/s. peak gradient 48 mm Hg, mean gradient 25 mm Hg and HUGO 1 cm2. Moderate aortic valve regurgitation. 3. Mild eccentric mitral valve regurgitation. 4. Pulmonary artery pressure estimated at 35 mmHg. 5. When compared to study dated 06/11/2022, aortic stenosis seems to have worsened. Radha Yusuf MD (Electronically Signed) Final Date: 12 June 2023 09:04 S
== END 2023-06-06 13:27 | disposition home or self-care (01) ==
LOC: RAD 13:26
PROVIDERS: PCP Nurse Practitioner Family; Visit Provider Internal Medicine Cardiovascular Disease
DX: I35.2 Nonrheumatic aortic (valve) stenosis with insufficiency (principal); I34.0 Nonrheumatic mitral (valve) insufficiency; R06.02 Shortness of breath
CPT/HCPCS: 93306

== ENCOUNTER → 2023-09-06 14:14 | Outpatient (BNVA) | payer MEDICARE, OTHER, MEDICAID, SELFPAY | PROVIDERS: PCP Nurse Practitioner Family; Visit Provider Podiatrist Foot & Ankle Surgery | DX: M21.41 Flat foot [pes planus] (acquired), right foot (principal); M21.42 Flat foot [pes planus] (acquired), left foot; M20.41 Other hammer toe(s) (acquired), right foot; M20.42 Other hammer toe(s) (acquired), left foot; E11.21 Type 2 diabetes mellitus with diabetic nephropathy; L60.3 Nail dystrophy; I73.9 Peripheral vascular disease, unspecified; L84 Corns and callosities; Z79.84 Long term (current) use of oral hypoglycemic drugs | CPT/HCPCS: 11056; 11721 ==

== ENCOUNTER → 2023-10-11 08:55 | Outpatient (BNVA) | payer MEDICARE, OTHER, SELFPAY | PROVIDERS: PCP Nurse Practitioner Family; Visit Provider Nurse Practitioner Family | DX: I10 Essential (primary) hypertension (principal); I35.0 Nonrheumatic aortic (valve) stenosis; Z87.891 Personal history of nicotine dependence | CPT/HCPCS: 99214 ==

== ENCOUNTER → 2023-10-28 08:29 | Outpatient (BNVA) | payer MEDICARE, OTHER, SELFPAY | PROVIDERS: PCP Nurse Practitioner Family; Visit Provider Thoracic Surgery (Cardiothoracic Vascular Surgery) | DX: L97.822 Non-pressure chronic ulcer of other part of left lower leg with fat layer exposed (principal) | CPT/HCPCS: 97597; 99213; A6212 ==

== ENCOUNTER 2023-11-08 06:12 | Outpatient (CLI) | payer MEDICARE, OTHER, SELFPAY ==
--- NOTE | 2023-11-08 06:15 | USCV_ITS ---
Sweetie Stern Age: 78 Gender: F : 1945 Exam Date: 11/08/2023 06:19 Ordering Phys: Bebe Green Technologist: Tiffany Flower Exam Location: [facility] [place] Indication: Recheck of BP: 131 / 67 HR: 72 Rhythm: Sinus Technical Quality: Adequate MEASUREMENTS (Male / Female) Normal Values 2D ECHO LV Diastolic Diameter PLAX 4.9 cm 4.2 - 5.9 / 3.9 - 5.3 cm IVS Diastolic Thickness 1.4 cm 0.6 - 1.0 / 0.6 - 0.9 cm IVS Systolic Thickness 1.9 cm LVPW Diastolic Thickness 1.6 cm 0.6 - 1.0 / 0.6 - 0.9 cm LVPW Systolic Thickness 1.5 cm LVOT Diameter 2.0 cm LV Ejection Fraction 2D Teich 74.4 % LV Ejection Fraction MOD 2C 48.6 % LV Ejection Fraction 2C AL 39.7 % LA Diameter 2.9 cm RA Systolic Volume 4C AL 18.0 ml RA Systolic Volume 4C MOD 17.6 ml Aorta at Sinotubular Diameter 2.9 cm IVC Diameter 1.4 cm M-MODE LA Ao Ratio MM 1.6 AV Cusp Separation MM 1.4 cm DOPPLER AV Peak Velocity 432.0 cm/s LVOT Peak Velocity 113.0 cm/s AV Area Cont Eq vti 1.1 cm squared AV Area Cont Eq pk 0.9 cm squared MV Peak Velocity 118.0 cm/s MV Area PHT 3.5 cm squared Mitral E to A Ratio 1.2 TV Peak Velocity 215.5 cm/s TR Peak Velocity 276.0 cm/s TR Peak Gradient 30.5 mmHg TR Mean Velocity 176.0 cm/s TR Mean Gradient 15.8 mmHg TR Velocity Time Integral 66.5 cm TV Peak E Velocity 93.0 cm/s Right Atrial Pressure 3.0 mmHg Pulmonary Artery Systolic Pressu 33.5 mmHg RV Ejection Time 0.3 s FINDINGS Left Ventricle Left ventricle is normal in size. LV systolic function is normal with EF of 60 to 65%. No regional wall motion abnormalities are seen. Modearte left ventricular hypertrophy seen. Right Ventricle Normal in size and function Right Atrium Normal in size Left Atrium Normal in size Mitral Valve Structurally normal mitral valve.Mild mitral regurgitation Aortic Valve Aortic valve is thickened. Moderate aortic stenosis with aortic valve area 1.08 cm squared and mean gradient of 33 mmHg. Mild to moderate aortic regurgitation. Tricuspid Valve Mild tricuspid regurgitation. Pulmonary artery systolic pressure is normal. Pulmonic Valve Mild pulmonic regurgitation. Pericardium Normal Aorta Normal in size IVC Appears to be normal CONCLUSIONS LV systolic function is normal with EF of 60-65% Moderate left ventricular hypertrophy. Mild mitral regurgitation Moderate aortic stenosis. Mild to moderate aortic regurgitation Mild tricuspid regurgitation Mild pulmonic regurgitation Compared to prior echocardiogram from 05/2023, aortic stenosis has progressed and mean gradient has worsened however still in moderate range. Domenic Boles MD (Electronically Signed) Final Date: 08 November 2023 09:04 S
== END 2023-11-08 06:13 | disposition home or self-care (01) ==
LOC: RAD 06:12
PROVIDERS: PCP Nurse Practitioner Family; Visit Provider Nurse Practitioner Family
DX: I35.0 Nonrheumatic aortic (valve) stenosis (principal); I10 Essential (primary) hypertension
CPT/HCPCS: 93306

== ENCOUNTER → 2024-03-13 10:39 | Outpatient (BNVA) | payer MEDICARE, OTHER, SELFPAY | PROVIDERS: PCP Nurse Practitioner Family; Visit Provider Podiatrist Foot & Ankle Surgery | DX: I73.9 Peripheral vascular disease, unspecified (principal); L84 Corns and callosities; M21.41 Flat foot [pes planus] (acquired), right foot; M21.42 Flat foot [pes planus] (acquired), left foot; M20.41 Other hammer toe(s) (acquired), right foot; M20.42 Other hammer toe(s) (acquired), left foot; E11.21 Type 2 diabetes mellitus with diabetic nephropathy; L60.3 Nail dystrophy; L60.8 Other nail disorders; Z79.84 Long term (current) use of oral hypoglycemic drugs | CPT/HCPCS: 11055; 11721 ==

== ENCOUNTER → 2024-04-10 15:47 | Outpatient (CLI) | payer MEDICARE, OTHER, SELFPAY | LOC: RAD 04-11 10:29 | PROVIDERS: PCP Nurse Practitioner Family; Visit Provider Internal Medicine Cardiovascular Disease | DX: R06.09 Other forms of dyspnea (principal); I35.0 Nonrheumatic aortic (valve) stenosis; E78.2 Mixed hyperlipidemia; I49.3 Ventricular premature depolarization; I51.89 Other ill-defined heart diseases; I10 Essential (primary) hypertension; R07.9 Chest pain, unspecified | CPT/HCPCS: 99214 ==

== ENCOUNTER 2024-05-29 14:57 | Outpatient (CLI) | payer MEDICARE, OTHER, SELFPAY ==
--- NOTE | 2024-05-29 15:03 | MR_ITS ---
WS: [id number] MRA ANGIOGRAPHY [place] HISTORY: DIZZINESS AND GIDDINESS COMPARISON: 11/07/2017 TECHNIQUE: 3-D MR angiography is performed of the [place]. All images are reviewed including source images. Distal vertebral and basilar arteries are intact with no significant stenosis or plaque. Posterior ce rebral arteries are normal course. Again noted is very mild narrowing of the RIGHT P1 segment which w as described in 2018. Posterior communicating arteries are both patent. Mild narrowing of the supraclinoid carotid arteries. There is no complete occlusion. Stenosis of less than 50%. Small caliber but patent middle cerebral arteries. The orientation and caliber is very sim ilar to the study from 11/25/2017. No aneurysms or progression. Mild narrowing of the RIGHT A1 segment . Very slight narrowing of the LEFT A1 segment. No aneurysms. MR/MR angio head wo con [id number] IMPRESSION: 1. No high-grade stenosis or occlusions. 2. Mild atherosclerotic disease identified with narrowing involving the suprac linoid carotid arteries, bilateral. 3. Reidentified is very mild stenosis of the RIGHT P1, LEFT A1 and bilateral M 1 segments. Not significantly changed since the prior study. Stenosis estimated at 50% or less.
--- NOTE | 2024-05-29 15:03 | MR_ITS ---
WS: [id number] MRI CERVICAL SPINE with and without contrast HISTORY: DIZZINESS AND GIDDINESS, history of breast cancer. COMPARISON: None available. Technique: Multiplanar, multisequence noncontrast imaging of the cervical spine. Postcontrast imaging 18 mL MultiHance. Straightening with slight reversal of the normal cervical lordosis centered at C5-6. Disc spaces are mildly desiccated with vertebral osteophytes. Signal within the cervical cord is normal. Visualized posterior fossa is unremarkable. Craniocervical junction, C1 and C2 relationship, odontoid process and soft tissues are normal. Chroni c appearing T1 mild compression deformity. C2-C3: Normal. C3-C4: Very slight anterolisthesis of C3 by 2 mm. Mild encroachment on the ventral thecal sac. Facet joint arthropathy with small foraminal osteophytes. Mild central with moderate bilateral foraminal st enosis. Edema within the facet joints, bilateral. C4-C5: Diffuse annular disc bulging encroaching upon the ventral thecal sac. Mild central and bilater al foraminal stenosis. Bilateral facet joint arthritis, LEFT greater than RIGHT. C5-C6: Diffuse annular disc bulging and mild osteophytosis with bilateral facet arthritis. Moderate t o severe central and bilateral foraminal stenosis. C6-C7: Diffuse marked annular disc bulging with osteophytosis. Severe central and bilateral foraminal stenosis with facet arthritis. C7-T1: Mild annular disc bulge. Very slight central and foraminal stenosis. Abnormal appearance to the odontoid process. On the T1 sequence there is decreased signal throughout the odontoid process with mild increased signal on the STIR sequence and fluid anterior in the preden juan david space. On the postcontrast imaging there is enhancement of the odontoid process. There is very sl ight posterior tilting of the odontoid. There is mild prevertebral soft tissue edema with enhancement . Mild LEFT thyroid enlargement. MR/MR cervical spine wo/w [id number] IMPRESSION: 1. Abnormal odontoid process. There is abnormal signal with enhancement in the odontoid process and the surrounding soft tissues and the prevertebral space. Prevertebral edema is also noted. Differential includes osteomyelitis with soft tissue enhancement, rheumatoid arthritis, TB and metastatic disease. No histor y of trauma but pathological fracture needs to be excluded also. Consider evalu ation by PET/CT imaging and noncontrast cervical spine CT. 2. C3-4: Mild central with moderate bilateral foraminal stenosis and facet mary nt synovitis. 3. C4-5: Mild central and bilateral foraminal stenosis. 4. C5-6 and C6-7: Moderate to severe central and bilateral foraminal stenosis. Notified KECIA Sotelo at 05/30/2024 8:39 AM.
[2024-05-29] MEDS: gadobenate dimeglumine 20 mL vial 18 ML IV (16:23)
== END 2024-05-29 14:58 | disposition home or self-care (01) ==
LOC: RAD 14:58
PROVIDERS: PCP Nurse Practitioner Family; Visit Provider Nurse Practitioner Family
DX: Q76.49 Other congenital malformations of spine, not associated with scoliosis (principal); M48.02 Spinal stenosis, cervical region; M99.71 Connective tissue and disc stenosis of intervertebral foramina of cervical region; R29.898 Other symptoms and signs involving the musculoskeletal system; R42 Dizziness and giddiness
CPT/HCPCS: 70544; 72156

== ENCOUNTER 2024-06-11 11:29 | Outpatient (CLI) | payer MEDICARE, OTHER, SELFPAY ==
--- NOTE | 2024-06-11 11:38 | USCV_ITS ---
Sweetie Stern Age: 79 Gender: F : 1945 Exam Date: 06/11/2024 11:51 Ordering Phys: Lizett Johns MD ([email or web address]) Technologist: Exam Location: [facility] [place] Indication: as BP: 120 / 70 HR: 101 Rhythm: Sinus Technical Quality: Adequate MEASUREMENTS (Male / Female) Normal Values 2D ECHO LV Diastolic Diameter PLAX 4.7 cm 4.2 - 5.9 / 3.9 - 5.3 cm IVS Diastolic Thickness 1.5 cm 0.6 - 1.0 / 0.6 - 0.9 cm IVS Systolic Thickness 1.8 cm LVPW Diastolic Thickness 1.3 cm 0.6 - 1.0 / 0.6 - 0.9 cm LVPW Systolic Thickness 2.0 cm LVOT Diameter 1.7 cm LV Ejection Fraction 2D Teich 65.9 % LV Ejection Fraction MOD 4C 64.4 % LV Ejection Fraction MOD 2C 66.4 % LV Ejection Fraction 2C AL 67.3 % LA Diameter 3.1 cm RA Systolic Volume 4C AL 32.0 ml RA Systolic Volume 4C MOD 30.2 ml LA Sys Volume AL 83.1 cm cubed LA Sys Volume Index AL 707.8 cm cubed/m squared Aorta at Sinotubular Diameter 2.6 cm IVC Diameter 1.3 cm M-MODE LA Ao Ratio MM 1.6 AV Cusp Separation MM 1.3 cm DOPPLER AV Peak Velocity 404.8 cm/s LVOT Peak Velocity 113.0 cm/s AV Area Cont Eq vti 0.7 cm squared AV Area Cont Eq pk 0.6 cm squared MV Peak Velocity 133.0 cm/s MV Area PHT 3.7 cm squared Mitral E to A Ratio 1.0 TV Peak Velocity 350.5 cm/s TR Peak Velocity 357.0 cm/s TR Peak Gradient 51.0 mmHg TV Peak E Velocity 156.0 cm/s Right Atrial Pressure 3.0 mmHg Pulmonary Artery Systolic Pressu 54.0 mmHg PV Peak Velocity 124.0 cm/s FINDINGS Left Ventricle Normal left ventricular size and systolic function, EF 66%.. Mild concentric left ventricular hypertrophy. No regional wall motion abnormalities. Right Ventricle The right ventricle is normal in size and function. Right Atrium The right atrium is normal in size. Left Atrium Mildly increased left atrial size. Mitral Valve Mild mitral annular calcification. Moderately severe mitral valve regurgitation. Aortic Valve Severe aortic valve stenosis, mean gradient 34.5 mmHg, HUGO 0.67 cm squared. Mild to moderate aortic valve regurgitation. Peak velocity of 4.2 m/s with a peak gradient of 66 and a mean gradient of 35 mmHg Tricuspid Valve Trace to mild tricuspid valve regurgitation. Estimated pulmonary artery peak systolic pressure 54 mmHg Pulmonic Valve Structurally normal pulmonic valve without significant stenosis. There is no pulmonic regurgitation. Pericardium Normal pericardium without effusion. Aorta Normal aortic annulus size. IVC Normal inferior vena cava. CONCLUSIONS Normal left ventricular size and systolic function, EF 66%.. Mild concentric left ventricular hypertrophy. No regional wall motion abnormalities. Severe aortic valve stenosis, mean gradient 34.5 mmHg, HUGO 0.67 cm squared. Mild to moderate aortic valve regurgitation. Peak velocity of 4.2 m/s with a peak gradient of 66 and a mean gradient of 35 mmHg. Mild mitral annular calcification. Moderately severe mitral valve regurgitation. Mildly increased left atrial size. Trace to mild tricuspid valve regurgitation. Estimated pulmonary artery peak systolic pressure 54 mmHg. There is no pericardial effusion. There are no intracardiac masses. Compared to the study from 11/08/2023, there is worsening of the valve stenosis and development of pulmonary hypertension. Dr Lizett Johns MD [facility] (Electronically Signed) Final Date: 12 June 2024 20:30 S
== END 2024-06-11 11:30 | disposition home or self-care (01) ==
LOC: RAD 11:30
PROVIDERS: PCP Nurse Practitioner Family; Visit Provider Internal Medicine Cardiovascular Disease
DX: I34.0 Nonrheumatic mitral (valve) insufficiency (principal); I35.2 Nonrheumatic aortic (valve) stenosis with insufficiency; R06.09 Other forms of dyspnea
CPT/HCPCS: 93306

== ENCOUNTER → 2024-06-29 09:33 | Outpatient (BNVA) | payer MEDICARE, OTHER, SELFPAY | PROVIDERS: PCP Nurse Practitioner Family; Visit Provider Nurse Practitioner Family | DX: I08.0 Rheumatic disorders of both mitral and aortic valves (principal); I49.3 Ventricular premature depolarization; I10 Essential (primary) hypertension; Z87.891 Personal history of nicotine dependence | CPT/HCPCS: 99214 ==

== ENCOUNTER 2024-07-17 14:36 | Outpatient (CLI) | payer MEDICARE, OTHER, SELFPAY ==
[2024-07-17 14:55] LABS: Basophils % 0.3 %; Eosinophils # 0.1 10^3/uL (0.0-0.8); Eosinophils % 0.5 %; Lymphocytes # 1.9 10^3/uL (0.8-4.8); Lymphocytes % 19.9 %; Mean Corpuscular HGB Conc 32.9 g/dL (30-55); Mean Corpuscular Hemoglobin 30.6 pg (27-33); Mean Corpuscular Volume 93.1 fl (85-98); Mean Platelet Volume 9.2 fL (7.4-10.4); Monocytes # 0.7 10^3/uL (0.2-0.9); Monocytes % 7.6 %; Neutrophils # 6.95 10^3/uL (1.8-7.7); Neutrophils % 71.4 %; Nucleated Red Blood Cells % 0 %; Platelet Count 243 10^3/cmm (157-399); Red Blood Count 3.76 10^6/uL (3.85-5.65); Red Cell Distribution Width 14.7 % (12.1-15.1); White Blood Count 9.74 10^3/uL (3.29-11.43)
[2024-07-17 15:04] LABS: Prothrombin Time (Patient) 13.6 Seconds (12.0-15.1)
[2024-07-17 15:18] LABS: Anion Gap 16.4 (5-19); Blood Urea Nitrogen 11 mg/dL (8-23); Calcium 9.8 mg/dL (8.5-10.5); Carbon Dioxide 23 mmol/L (22-29); Chloride 100 mmol/L (98-107); Glucose 94 mg/dL (65-115); NT Pro B Type Natriuretic Pept 601 pg/mL (0-450); Osmolality Calculated 279 mOsm/kg (285-295); Potassium 4.4 mmol/L (3.5-5.1); Sodium 135 mmol/L (136-145)
== END 2024-07-17 14:37 | disposition home or self-care (01) ==
LOC: LAB 14:38
PROVIDERS: PCP Nurse Practitioner Family; Visit Provider Nurse Practitioner Family
DX: I35.0 Nonrheumatic aortic (valve) stenosis (principal); I49.3 Ventricular premature depolarization
CPT/HCPCS: 36415; 80048; 83880; 85025; 85610; 86850; 86900

== ENCOUNTER 2024-07-19 05:59 | Outpatient (CLI) | payer MEDICARE, OTHER, SELFPAY ==
[2024-07-19] VITALS (45 sets, daily range): BP systolic 112–153; BP diastolic 54–88; PULSE 56–76; RESP 12–20; TEMP 36.6; O2SAT 92–98; BMI 34.0
--- NOTE | 2024-07-19 06:00 | XACV_ITS ---
Ht: 155 cm Wt: 82 kg BSA: 1.91 m2 Gender: Female : 1945 Any Known Allergies: Other Exam Priority: Routine Indication(s): - Aortic valve disease - Severe aortic valve stenosis by ECHO Procedure(s): Procedure Description: Diagnostic procedure Procedure Description: Right Heart Catheterization Procedure Description: O2 saturation Procedure Description: Miscellaneous Procedure Description: Perclose Procedure Description: Coronary Angiography Andreas GAINES; Diagnostic Cath Status: Elective Diagnostic Findings * The left main is a medium caliber vessel with a mild diffuse calcification. No similar stenotic lesions were noted. * The left anterior descending artery is a medium caliber vessel which was found to be wrapping around the LV apex minimally. The artery was found to have mild diffuse disease in the midsegment of 20 to 30%. Mild diffuse calcification also was noted in the proximal and mid segment of the artery. The first diagonal branch was found to have minimal intimal irregularities. No significant stenotic lesions. * The left circumflex artery is a medium caliber vessel which appears to Case of a high obtuse marginal branch proximally. The artery was found to have minimal intimal irregularities with no significant stenotic lesions. * The right coronary artery is a medium to large caliber vessel with the minimal intimal irregularities. It appears to be the dominant vessel. * The right heart catheterization revealed right atrial pressure of 10. RV pressure 47/4. PA pressure was 42/18 with a mean of 27. Pulmonary capillary wedge pressure was 22. Cardiac output by Bradford's was 5.0 with an index of 3.0. Conclusions 1. 78-year-old white female with a diagnosis of severe aortic valve stenosis underwent coronary angiogram and right heart catheterization today as part of the preop evaluation. The findings are as follows. 2. Mild diffuse coronary artery disease. No significant stenotic lesions. 3. The right heart catheterization revealed a PA pressure of 4042/18 with a mean of 27. RV pressure 47/4 RA pressure of 10 pulmonary capillary wedge pressure was 22. Cardiac output by Bradford's was 5.0 with an index of 3.0. Diagnostic RX Recommendation: other cardiac therapy w/o CABG/PCI Pressures Phase:Rest AO : / ( 39 ) @ 7:24:00 AM RV : 47 / 4 / 13 @ 7:58:00 AM PA : 42 / 18 ( 27 ) @ 7:56:00 AM RA : a wave = 15 v wave = 11 mean = 10 @ 7:59:00 AM PCW : a wave = 26 v wave = 31 mean = 22 @ 7:57:00 AM a wave = 24 v wave = 29 mean = 22 @ 7:57:00 AM O2 Content Phase:Rest PA : O2 Content O2: 76.6 @ 7:57:00 AM Saturations Phase:Rest AO : 98 @ 7:57:00 AM RA : 78 @ 7:56:00 AM RV : 75 @ 7:24:00 AM PA : 77 @ 7:57:00 AM Cardiac Output Phase:Rest Bradford : 5 @ 8:45:45 AM Bradford Cardiac Index: 3 @ 8:45:45 AM Flow Phase:Rest Qp : 5 @ 8:45:45 AM Qs : 5 @ 8:45:45 AM Clinical Evaluation EBL: 5mL-10mL Procedural Details Procedure Consent Obtained. Pre-Procedure Time Out. Identified patient by full name and date of as verbalized by the patient/guarantor. Does the consent match the physician's order: Yes. Accurate & Complete Informed Consent: Yes. Inpatient/Outpatient History & Physical on Chart: Yes. If H&P is completed, is and addenduem needed: No; If yes, is the addendum complete: N/A. Visualize and Verify Site with Patient/Guarantor: N/A. Relevant Radiology Images available: Yes. The risks, benefits, and alternatives of sedation and/or procedure were discussed by physician. The patient agrees to continue. Procedure started. [facility] Clinical Fraility Score: 2: Well. Director Music Indications: Valvular Disease. Chest Pain Symptom Assessment: Atypical Angina. Cardiovascular Instability: No. Correct patient, site and procedure confirmed by cath team. Current diagnosis: Aortic Valve Stenosis. PERRLA. Strong, equal hand freight engineer bilaterally. Lungs clear x 5 lobes. IV Site on Arrival: 20 gauge in the left anticubital. IV Site on Arrival: 20 gauge in the right anticubital. IV Fluids: 0.9% NaCl at KVO. 0 mL infused prior to crime lab technician. Pre Procedural Pulses: bilateral dorsalis pedis was 3+. Pre Procedural Pulses: bilateral posterior tibial was 1+. Pre Procedural Pulses: bilateral radial was 3+. Oxygen started at 0liters/min via nasal canula. bilateral groins was prepped with chloroprep then draped in the usual sterile fashion. right brachial was prepped with chloroprep then draped in the usual sterile fashion. Physician notified. Physician arrived. Plan Femoral arterial access d/t alpha gal diagnosis and inabliity to take heparin. Baseline sample Acquired. HR: 77 BPM. Patient's family unavailable. Physician scrubbed in. Immediate Pre-Procedure Time Out. Correct Patient: Yes; Correct Procedure: Yes; Correct Site: Yes; Correct Patient Position: Yes; Correct Supplies: Yes; Dried Flammable Prep: Yes; Blood Products Available: N/A;. Current Diagnosis : Chest Pain. Lidocaine 1% infiltrated to the right brachial. Wire inserted through the 20 ga iv access. [place]-Dodie MON catheter inserted over the swan wire. [place] out. Hand injection performed. [place] wire reinserted. [place] out. Hand injection performed. [place] wire inserted. SWAN MON advanced. Oximetry samples were obtained. Normal venous range: 60-85%. Normal arterial range: 95-100%. Pressure measurements obtained. ABG drawn and sent with respiratory therapy. [place]-Dodie out. Lidocaine 1% infiltrated to the right groin. Arterial access obtained. A 5 [place] JL4 catheter in over wire. Multiple views taken of left coronary artery. Catheter removed over the standard wire. A 5 [place] JR4 catheter in over wire. Multiple views taken of right coronary artery. Catheter removed over the standard wire. A Right femoral angiogram was performed to determine safe placement of closure device. Dr Gonzalez scubbed in to place closure device. A Manual Compression was successful obtaining hemostatsis at the Right Brachial Vein insertion site. A Perclose ([employer]) was successful obtaining hemostatsis at the Right Femoral artery insertion site. Sheath(s) removed and manual pressure held until hemostasis was achieved. Sterile 4x4 and Op-site applied to the puncture site. No oozing or hematoma noted. Post sheath removal instructions were given and the patient verbalized understanding. Perclose placed without complications. No signs or symptoms of hematoma noted. Sterile dressing applied per usual sterile fashion. exp 03/07/2026 lot #[id number]. [id number]. Total IV fluids: 45 mL. Medication waste: Fentanyl 50 mcg. Post-op diagnosis: Mild pulmonary HTN; Severe Aortic Valve Stenosis. Complications: None. Post Procedure: Pulses reassessed and unchanged. PERRLA. Strong, equal hand freight engineer bilaterally. No VTE prophylaxis required. Fluoro: 15:03. Contrast type used: Omnipaque 300 mg/mL, 150 mL bottle. Estimated blood loss: 5mL-10mL. Responsiveness - Normal response to verbal stimuli; alert and oriented, PERRLA. Airway - Unaffected, no intervention required; spontaneous ventilation. Circulation: W/N/L, pulses unchanged. Nausea/Vomiting: No. Physician scrubbed out. Vital chart was stopped. Procedure completed. Patient transferred by bed to CPRU. Access Site Site: Right Brachial Vein Sheath Size: 5 Fr Hemostasis Method: Manual Compression Hemostasis Success: Successful Site: Right Femoral artery Sheath Size: 6 Fr Hemostasis Method: Perclose (Cabrera) Hemostasis Success: Successful Procedure Medications Start: 7:24 AM Stop: 7:24 AM Medication: Benadryl Amount: 25 mg Route: I.V. Start: 7:28 AM Stop: 7:28 AM Medication: Versed 1 mg and Fentanyl 25 mcg Amount: 1 Route: I.V. Start: 7:37 AM Stop: 7:37 AM Medication: Versed Amount: 1 mg Route: I.V. Start: 7:59 AM Stop: 7:59 AM Medication: Versed 1 mg and Fentanyl 25 mcg Amount: 1 Route: I.V. Start: 8:13 AM Stop: 8:13 AM Medication: Versed Amount: 1 mg Route: I.V. I, the attending physician, have reviewed and verified all procedure medications. Yes, all medications given per verbal order History/Risk Factors Hypertension: Yes Dyslipidemia: Yes Peripheral Arterial Disease (PAD): No Myocardial Infarction (MT): No Obesity: No Renal Disease: No Tobacco Use: Former Prior Interventions PCI: No CABG: No Valve Surgery: No Report Signatures Finalized by Dr Lizett Johns MD [facility] on 07/19/2024 09:14 AM
[2024-07-19] MEDS: aspirin 325 mg Tablet PO (06:20)
[2024-07-19 06:28] LABS: Basophils % 0.4 %; Eosinophils # 0.1 10^3/uL (0.0-0.8); Eosinophils % 1.4 %; Hematocrit 35.9 % (36-47); Lymphocytes % 28.7 %; Mean Corpuscular HGB Conc 33.4 g/dL (30-55); Mean Corpuscular Volume 92.8 fl (85-98); Mean Platelet Volume 9.3 fL (7.4-10.4); Monocytes # 0.6 10^3/uL (0.2-0.9); Monocytes % 8.8 %; Neutrophils # 4.25 10^3/uL (1.8-7.7); Neutrophils % 60.4 %; Nucleated Red Blood Cells % 0 %; Platelet Count 247 10^3/cmm (157-399); Red Blood Count 3.87 10^6/uL (3.85-5.65); Red Cell Distribution Width 14.5 % (12.1-15.1); White Blood Count 7.04 10^3/uL (3.29-11.43)
[2024-07-19 06:54] LABS: Blood Urea Nitrogen 11 mg/dL (8-23); Calcium 9.7 mg/dL (8.5-10.5); Carbon Dioxide 26 mmol/L (22-29); Chloride 98 mmol/L (98-107); Creatinine Clr Calc Pharmacy 55.2156; Glucose 107 mg/dL (65-115); Osmolality Calculated 282 mOsm/kg (285-295); Sodium 136 mmol/L (136-145)
--- NOTE | 2024-07-19 07:20 | W.PM.OPSUD ---
Surgery/Procedure H&P Update DATE OF PROCEDURE: July 19, 2024 DATE H&P PERFORMED: 06/29/24 H&P UPDATE INFORMATION: I have reviewed H&P completed within last 30 days, I have examined patient prior to procedure and No changes to prior documentation PREOP DIAGNOSIS: Severe AAS PRIMARY INDICATION FOR PROCEDURE: Severe aortic stenosis, preop evaluation PLANNED PROCEDURE: Operation Date: 07/19/24 07:00 Proposed Procedures p Cardiac Catheterization - RLHC W/wo LV & [place](Bilateral) - Lizett Johns MD PATIENT REASSESSED PRIOR TO SEDATION, WITH NO CHANGE NOTED: Yes PHYSICAL EXAM: alert, oriented x 3, clear to auscultation bilaterally and regular rate & rhythm AIRWAY EVAL/ANESTHESIA PLAN: normal airway, see other exam findings, ASA III, Monitored Anesthesia, Local Anesthesia, Risks, benefits & alternatives of sedation and/or procedure discussed and Patient agrees to continue as planned
--- NOTE | 2024-07-19 08:23 | PM.OP ---
Operative Report Date of procedure: July 19, 2024 Surgeon: Lizett Johns MD Procedure: Patient underwent right and left heart dilatation number local anesthesia and IV sedation. For the right heart catheterization right brachial vein access was used. For the left heart catheterization right common femoral artery at the groin was used for access. Patient was found to have mild pulmonary hypertension and mild coronary artery disease. Tolerated procedure very well with no complications. No blood loss. Plan. Refer for TAVR
[2024-07-19 08:34] LABS: Blood Gas Operator Identificat glc; Blood Gas Sample Site Not specified; Blood Gas Sample Type Arterial; Carboxyhemoglobin 1.1 %THgb (0.4-20.1); HGB O2 Sat 75.6 % (95-100); Methemoglobin 0.2 % (0.4-1.5); Total Hemoglobin 9.8 g/dL (12-16)
[2024-07-19 08:36] LABS: Arterial Blood Gas Hematocrit 30.5 % (37-47); Blood Gas Operator Identificat glc; Blood Gas Sample Site Not specified; Blood Gas Sample Type Not specified; HGB O2 Sat 96.8 % (95-100); Methemoglobin 0.2 % (0.4-1.5)
[2024-07-19 08:38] LABS: Arterial Blood Gas Hematocrit 33.4 % (37-47); Blood Gas Operator Identificat glc; Blood Gas Sample Site Not specified; Blood Gas Sample Type Not specified; Carboxyhemoglobin 1.1 %THgb (0.4-20.1); HGB O2 Sat 77.4 % (95-100); Methemoglobin 0.1 % (0.4-1.5); Total Hemoglobin 10.9 g/dL (12-16)
[2024-07-19 08:40] LABS: Arterial Blood Gas Hematocrit 24.1 % (37-47); Blood Gas Operator Identificat glc; Blood Gas Sample Site Not specified; Blood Gas Sample Type Not specified; Carboxyhemoglobin 1.2 %THgb (0.4-20.1); HGB O2 Sat 74.2 % (95-100); Methemoglobin 0.2 % (0.4-1.5); Total Hemoglobin 7.9 g/dL (12-16)
--- NOTE | 2024-07-19 11:42 | PC.NURSE ---
Patient able to ambulate with minimal assistance. No hematoma or bleeding noted at this time after ambulation.
== END 2024-07-19 12:43 | disposition home or self-care (01) ==
PROVIDERS: PCP Nurse Practitioner Family; Visit Provider Internal Medicine Cardiovascular Disease
DX: I35.0 Nonrheumatic aortic (valve) stenosis (principal); I25.10 Atherosclerotic heart disease of native coronary artery without angina pectoris; I10 Essential (primary) hypertension; E78.5 Hyperlipidemia, unspecified; Z87.891 Personal history of nicotine dependence; E11.9 Type 2 diabetes mellitus without complications; Z85.3 Personal history of malignant neoplasm of breast
CPT/HCPCS: 36415; 80048; 82810; 85025; 93460; 96365; 96374; 99152; 99153; C1751; C1760; C1769; C1887; C1894; G0269; J1200; J1644; J2250; J3010; J7030; Q9967

== ENCOUNTER → 2024-07-24 13:20 | Outpatient (BNVA) | payer MEDICARE, OTHER, SELFPAY | PROVIDERS: PCP Nurse Practitioner Family; Visit Provider Nurse Practitioner Family | DX: I35.0 Nonrheumatic aortic (valve) stenosis (principal); I10 Essential (primary) hypertension; I27.20 Pulmonary hypertension, unspecified; Z87.891 Personal history of nicotine dependence | CPT/HCPCS: 99214 ==

== ENCOUNTER → 2024-10-16 14:32 | Outpatient (BNVA) | payer MEDICARE, OTHER, SELFPAY | PROVIDERS: PCP Nurse Practitioner Family; Visit Provider Podiatrist Foot & Ankle Surgery | DX: E11.21 Type 2 diabetes mellitus with diabetic nephropathy (principal); L60.3 Nail dystrophy; L84 Corns and callosities; I73.9 Peripheral vascular disease, unspecified; L60.8 Other nail disorders; Z79.84 Long term (current) use of oral hypoglycemic drugs | CPT/HCPCS: 11056; 11721 ==

== ENCOUNTER → 2024-11-12 12:47 | Outpatient (BNVA) | payer MEDICARE, OTHER, SELFPAY | PROVIDERS: PCP Nurse Practitioner Family; Visit Provider Specialist | DX: M65.341 Trigger finger, right ring finger (principal); M65.332 Trigger finger, left middle finger; M65.4 Radial styloid tenosynovitis [de Quervain]; M65.322 Trigger finger, left index finger | CPT/HCPCS: 73130; 99214 ==

== ENCOUNTER → 2024-11-19 15:25 | Outpatient (BNVA) | payer MEDICARE, OTHER, SELFPAY | PROVIDERS: PCP Nurse Practitioner Family; Visit Provider Specialist | DX: M65.4 Radial styloid tenosynovitis [de Quervain] (principal) | CPT/HCPCS: 99214 ==

== ENCOUNTER 2024-12-11 12:20 | Outpatient (CLI) | payer MEDICARE, OTHER, SELFPAY ==
[2024-12-11 13:08] LABS: Basophils % 0.5 %; Eosinophils % 0.5 %; Hematocrit 34.4 % (36-47); Lymphocytes # 1.4 10^3/uL (0.8-4.8); Mean Corpuscular HGB Conc 32.8 g/dL (30-55); Mean Corpuscular Hemoglobin 30.5 pg (27-33); Mean Corpuscular Volume 92.7 fl (85-98); Mean Platelet Volume 9.3 fL (7.4-10.4); Monocytes # 0.4 10^3/uL (0.2-0.9); Monocytes % 6.5 %; Neutrophils # 4.13 10^3/uL (1.8-7.7); Neutrophils % 69.3 %; Nucleated Red Blood Cells % 0 %; Platelet Count 233 10^3/cmm (157-399); Red Blood Count 3.71 10^6/uL (3.85-5.65); Red Cell Distribution Width 13.2 % (12.1-15.1); White Blood Count 5.96 10^3/uL (3.29-11.43)
[2024-12-11 13:10] LABS: Bilirubin Urine Negative (Negative); Blood Urine Negative (Negative); Glucose Urine UA Negative (Normal); Ketones Urine Negative (Negative); Leukocyte Esterase Urine Negative (Negative); Nitrate Urine Negative (Negative); Protein Urine Negative (Negative); Specific Gravity, Urine 1.009 (1.005-1.030); Urine Appearance Clear (CLEAR); Urine Color Yellow (Yellow); Urobilinogen Urine 0.2 mg/dL (Negative); pH Urine 5.5 (5-7)
[2024-12-11 13:12] LABS: Add Urine Microscopic? YES; Bacteria Urine None Seen /hpf; Hyaline Casts Urine 0-4 /lpf; RBC Urine 0-2 /hpf (0-2); Squamous Epithelial Cell Urine 0-5 /hpf (0-5); WBC Urine 0-5 /hpf (0-5)
[2024-12-11 13:19] LABS: Add Urine Culture? No
[2024-12-11 13:28] LABS: Alanine Aminotransferase 15 U/L (0-33); Albumin Level 4.3 g/dL (3.5-5.2); Alkaline Phosphatase 102 U/L (35-105); Anion Gap 19.4 (5-19); Aspartate Amino Transferase 23 U/L (0-32); Blood Urea Nitrogen 15 mg/dL (8-23); Calcium 9.5 mg/dL (8.5-10.5); Carbon Dioxide 22 mmol/L (22-29); Chloride 98 mmol/L (98-107); Globulin 3.3 g/dL (1.3-4.6); Glucose 157 mg/dL (65-115); Osmolality Calculated 284 mOsm/kg (285-295); Potassium 4.4 mmol/L (3.5-5.1); Sodium 135 mmol/L (136-145); Total Bilirubin 0.4 mg/dL (0.15-1.2); Total Protein 7.6 g/dL (6.6-8.7)
== END 2024-12-11 12:21 | disposition home or self-care (01) ==
LOC: LAB 12:23
PROVIDERS: PCP Nurse Practitioner Family; Visit Provider Specialist
DX: Z01.818 Encounter for other preprocedural examination (principal)
CPT/HCPCS: 36415; 80053; 81001; 85025

== ENCOUNTER → 2024-12-25 14:39 | Outpatient (BNVA) | payer MEDICARE, OTHER, SELFPAY | PROVIDERS: PCP Nurse Practitioner Family; Visit Provider Orthopaedic Surgery | DX: M54.2 Cervicalgia (principal) | CPT/HCPCS: 72050; 99204 ==

== ENCOUNTER 2025-01-03 08:53 | Outpatient (CLI) | payer MEDICARE, OTHER, SELFPAY ==
--- NOTE | 2025-01-03 09:00 | CTR_ITS ---
PROCEDURE INFORMATION: Exam: CT Cervical Spine Without Contrast Exam date and time: 01/03/2025 9:21 AM Age: 79 years old Clinical indication: Pain and injury or trauma; Blunt trauma; Injury details: Posterior neck pain that radiates down right arm to fingers and to left shoulder recent fall; Prior surgery; Surgery date: 6+ months; Surgery type: Heart valve; HX of breast cancer TECHNIQUE: Imaging protocol: Computed tomography of the cervical spine without contrast. Radiation optimization: All CT scans at this facility use at least one of these dose optimization techniques: automated exposure control; mA and/or kV adjustment per patient size (includes targeted exams where dose is matched to clinical indication); or iterative reconstruction. COMPARISON: MR cervical spine wo/w [id number] 05/29/2024 4:00 PM RADIATION DOSE METRICS: Total DLP (mGy-cm): 144.77 FINDINGS: Bones: Multilevel degenerative disc disease. Grade 1 anterolisthesis of C3 over C4 and grade 1 retrolisthesis of C6 over C7. There is multilevel uncovertebral and facet hypertrophy with neural foramina narrowing. Lungs: Lung apices are normal. Thyroid: Nodule in the left thyroid lobe measuring 1.9 x 2.9 cm. Soft tissues: Unremarkable. CT/CT cervical spin wo con* [id number] IMPRESSION: No acute fracture. Nodule in the left thyroid lobe measuring 1.9 x 2.9 cm. Nonemergent ultrasound can be obtained for further assessment. COMMENTS: Consistent with the [employer]'s Incidental Findings Committee white paper (J Am Lesly Radiol 2015): In patients aged 35 years and older with an incidental thyroid nodule equal to or greater than 1.[address], MRI or extrathyroidal US, further evaluation with dedicated thyroid US is recommended for patients with normal life expectancy and without comorbidities. For smaller nodules without suspicious features, no further evaluation or follow up is recommended.
== END 2025-01-03 08:54 | disposition home or self-care (01) ==
PROVIDERS: PCP Nurse Practitioner Family; Visit Provider Orthopaedic Surgery
DX: M54.2 Cervicalgia (principal); E04.1 Nontoxic single thyroid nodule
CPT/HCPCS: 72125

== ENCOUNTER → 2025-01-08 08:54 | Outpatient (BNVA) | payer MEDICARE, OTHER, SELFPAY | PROVIDERS: PCP Nurse Practitioner Family; Visit Provider Family Medicine | DX: Z01.818 Encounter for other preprocedural examination (principal) | CPT/HCPCS: 93005 ==

== ENCOUNTER 2025-01-14 07:17 | Day surgery (SDC) | payer MEDICARE, OTHER, SELFPAY ==
[2025-01-14] VITALS (10 sets, daily range): BP systolic 87–176; BP diastolic 45–79; PULSE 56–98; RESP 16–20; TEMP 36.1–36.8; O2SAT 96–98; BMI 34.9
[2025-01-14] MEDS: acetaminophen 1,000 MG/100 ML PIGGYBACK 400 MG IV (07:58)
[2025-01-14] MEDS: sodium chloride 0.9% 1,000 ML 30 ML IV (07:58)
[2025-01-14 08:03] LABS: Glucose Point of Care 106 mg/dL (70-110)
--- NOTE | 2025-01-14 08:06 | P.HPUD_ITS ---
Surgery/Procedure H&P Update DATE OF PROCEDURE: January 14, 2025 DATE H&P PERFORMED: 01/08/25 H&P UPDATE INFORMATION: I have reviewed H&P completed within last 30 days, I have examined patient prior to procedure, No changes to prior documentation, H&P is in [facility] EMR on date indicated and Risks and benefits of the procedure reviewed PLANNED PROCEDURE: Operation Date: 01/14/25 09:05 Proposed Procedures p Dequervain Release(Right) - Mariam Holt MD Related Problem List Diagnoses (1) De Quervain's tenosynovitis, right:
--- NOTE | 2025-01-14 08:08 | ANES.PREANE2 ---
Pre-Anesthetic Assessment Height/Weight: Height 1.55 m Weight 83.915 kg Temp Pulse Resp BP Pulse Ox O2 Del Method 98.2 F 87 16 176/73 98 Room Air 01/14/25 07:35 01/14/25 07:35 01/14/25 07:35 01/14/25 07:35 01/14/25 07:35 01/14/25 07:35 Operation Date: 01/14/25 09:05 Proposed Procedures p Dequervain Release(Right) - Mariam Holt MD Was Beta Nevin taken within 24 hours: Yes Was Clonidine taken within 24 hours: N/A Last intake: Intake Last Liquid Date 01/13/25 Last Liquid Time 21:00 Last Solid Date 01/13/25 Last Solid Time 14:00 Social No alcohol and No tobacco Exam alert, oriented x 3, clear to auscultation bilaterally and regular rate & rhythm Airway Submandibular: within normal limits Cervical ROM: within normal limits Mallampati: Class II Dentition: full History/ROS No significant history except as noted and No significant complaints Pulmonary None reported CV/HEM Hypertension Recent TAVR None reported Hepatic None reported GI None reported Metabolic Diabetes Mellitus [facility] [place] Osteoarthritis/DJD Neuropsych None reported Anesthetic Plan ASA status: 2 Anesthesia: Anesthesia Evaluation and General Risk of > 500 ml blood loss (7ml/kg in children): No Medications/Allergies Home Medications ?Medication ?Instructions ?Recorded ?Confirmed ?Last Taken ?Type metformin 500 mg tablet 500 mg PO DAILY 08/17/19 01/11/25 01/11/25 History Held on 07/19/24. Instructions: Resume on 07/22/24. rosuvastatin 10 mg tablet 10 mg PO DAILY 08/17/19 01/11/25 01/14/25 History metoprolol succinate 100 mg 100 mg PO DAILY 12/04/20 01/11/25 01/14/25 History tablet,extended release 24 hr amlodipine 5 mg tablet 10 mg (2 x 5 mg) PO DAILY 30 days 12/06/20 01/11/25 01/14/25 Rx #30 tabs lisinopril 20 mg tablet 40 mg PO DAILY 04/02/21 01/11/25 01/14/25 History tizanidine 4 mg capsule 4 mg PO BEDTIME PRN muscle spasm 04/02/21 01/11/25 01/14/25 History acetaminophen 500 mg tablet 500 mg PO Q6H PRN Pain 08/12/22 01/11/25 11/18/22 History (Acetaminophen Extra Strength) ibuprofen 400 mg tablet 400 mg PO DAILY PRN Pain 08/12/22 01/11/25 01/11/25 History Diabetic Shoes with 3 pairs of #1 ea 08/17/22 01/08/25 Unknown Rx inserts gabapentin 300 mg capsule 300 mg PO TID 11/18/22 01/11/25 01/14/25 History isosorbide mononitrate 30 mg 15 mg (1/2 x 30 mg) PO DAILY #45 01/09/25 01/11/25 01/11/25 Rx tablet,extended release 24 hr tabs aspirin 81 mg tablet,delayed 81 mg PO DAILY PRN Pain 01/11/25 01/11/25 01/11/25 History release (Adult Low Dose Aspirin) Allergies Allergy/AdvReac Type Severity Reaction Status Date / Time tramadol Allergy Severe ALGY-Swell Verified 01/11/25 13:36 Lip/Tongue/Throat Alpha-Gal Allergy ALGY-Rash Verified 01/14/25 07:41 (Dcrldbwxs-Fcndq-0,3-Gala hydrocodone Allergy RASH Verified 01/11/25 13:36 Current Medications Generic Name Dose Route Start Last Admin Trade Name Freq PRN Reason Stop Dose Admin Sodium Chloride 1,000 mls @ 30 mls/hr 01/14/25 07:30 01/14/25 07:58 Sodium Chloride 0.9% IV 01/15/25 07:29 30 mls/hr .Q24H NOELLE Administration PFSH Anesthesia Medical History Aortic stenosis Bilateral carpal tunnel syndrome Trigger index finger of right hand Hyperlipidemia Diabetes mellitus Breast cancer Hypertension Lumbar post-laminectomy syndrome Surgical History H/O heart valve replacement with mechanical valve Status post colonoscopy with polypectomy (12/25/19) ascending and rectal polyp H/O breast surgery History of lumbar surgery Status post carpal tunnel release Right carpal tunnel release, DOS: 04-26-[address] Fox Left carpal tunnel release, DOS: 06-28-[address] Fox Family History Sister Diabetes Cancer Brother Cancer Social History Smoking and tobacco/nicotine status: never used tobacco/nicotine Alcohol intake: never Substance/Drug Use: never Lives independently: Yes Pets and animals: Yes Pets & animals: cat(s) Data Anesthesia Cardiac Studies: Echocardiogram 06/11/24 Echocardiogram Ultrasound 12/05/20 Sestamibi Stress Test (Cardiology) 09/14/22
[2025-01-14] MEDS: ceFAZolin 2,000 mg SDV 2000 MG IVP (08:15)
[2025-01-14] MEDS: BUPivacaine 0.5% INJ 30 mL INJECTION (08:35)
--- NOTE | 2025-01-14 09:02 | P.OP_ITS ---
Operative Report Date of procedure: January 14, 2025 Pre-op diagnosis: Right de Quervain's tenosynovitis Post-op diagnosis: Right de Quervain's tenosynovitis Post-op findings: Significant inflammation around the abductor pollicis longus and extensor pollicis brevis with fluid Procedure done: Right de Quervain's tenosynovitis release Implants: None Specimens removed/disposition: None Pathology: None Surgeon: Mariam Holt MD Manager Merchandising: None Anesthesia: General (Per LMA, ASA 2) Estimated blood loss (mL): 1 Tourniquet time (min): 13 (At 250 mmHg) IV fluids (mL): 800 Urine output (mL): 1 (No Contreras) Complications: None Findings: Significant inflammation around the first dorsal compartment tendons Condition: stable Disposition: PACU (Then return to same-day surgery for discharge to home) Brief History: This 79-year-old woman presented with complaints consistent with de Quervain's tenosynovitis. After discussion in the office, the patient wished to proceed with operative intervention. Risks and complications were discussed with her. Preoperatively, she did receive cardiac clearance and was scheduled for the above procedure. She was seen preoperatively. The surgical procedure was discussed along with risks and complications once again. The patient was given opportunity to ask and have questions answered. Procedure: The patient was brought to the operating theater. Anesthesia provided general anesthesia per LMA, ASA 2. The patient's right upper extremity was prepped and draped in usual fashion utilizing DuraPrep. It was draped free. Tourniquet was elevated to 250 mmHg for a total tourniquet time of 13 minutes. Preoperative surgical pause was performed at which time we identified the patient, the procedure, preoperative surgical markings, and preoperative antibiotics Ancef 2 g. The radial styloid was palpated and an incision was made horizontally approximately 1 cm proximal to the tip of the radial styloid. Dissection continued through the skin and dermis but following that soft tissue blunt dissection was accomplished to prevent injury to the superficial radial nerve branches in the area. We were able to retract these branches and the first dorsal compartment was visualized. The fibrous tissue over the first dorsal compartment was noted to be quite thickened and erythematous. This was released longitudinally using a combination of scalpel and scissors. We then confirmed that each of the tendons at been released. There was one abductor pollicis longus tendons and one extensor pollicis brevis tendon. All of these were released at least a centimeter distal to the radial styloid and proximally as well. There was no further compression across the tendons. The tendons were pulled up out of the tunnel for evaluation. Following this, the wound was irrigated. Attention was then directed to closure. Closure was accomplished with 4-0 Monocryl in a subcuticular suture was placed in a running fashion. We did inject the wound with half percent Marcaine plain for local anesthetic. This was followed by Dermabond and OpSite. We then placed fluffed fluffs followed by soft roll and an Regulo wrap. Patient was returned to Recovery Room in a satisfactory condition and will be discharged home to follow-up with me in the office. There were no specimens and no complications. Related Problem List Diagnoses (1) De Quervain's tenosynovitis, right:
--- NOTE | 2025-01-14 10:25 | ANE.PACU2 ---
Inpatient post-anesthesia follow up: Airway intact: Yes Vital signs: Temperature 97.2 F Pulse Rate 73 Respiratory Rate 16 Blood Pressure 147/64 Pulse Oximetry 98 Oxygen Delivery Me thod Room Air Oxygen Flow Rate Fraction of Inspir ed Oxygen Hydration adequate: Yes Nausea and vomiting: No Pain level: 1 Mental status: Baseline
== END 2025-01-14 10:25 | disposition home or self-care (01) ==
PROVIDERS: PCP Nurse Practitioner Family; Visit Provider Specialist
PROC: (CPT 25000; principal; 2025-01-14 08:55)
DX: M65.4 Radial styloid tenosynovitis [de Quervain] (principal); I10 Essential (primary) hypertension; E11.9 Type 2 diabetes mellitus without complications; E78.5 Hyperlipidemia, unspecified; Z85.3 Personal history of malignant neoplasm of breast; Z79.84 Long term (current) use of oral hypoglycemic drugs; Z79.899 Other long term (current) drug therapy; Z79.82 Long term (current) use of aspirin; Z88.5 Allergy status to narcotic agent
CPT/HCPCS: 25000; 36416; 82962; J0131; J0690; J1100; J1885; J2405; J3010; J3490; J7030

== ENCOUNTER → 2025-01-24 14:03 | Outpatient (BNVA) | payer MEDICARE, OTHER, SELFPAY | PROVIDERS: PCP Nurse Practitioner Family; Visit Provider Orthopaedic Surgery | DX: M54.2 Cervicalgia (principal); Z09 Encounter for follow-up examination after completed treatment for conditions other than malignant neoplasm | CPT/HCPCS: 99213 ==

== ENCOUNTER → 2025-01-28 09:22 | Outpatient (BNVA) | payer MEDICARE, OTHER, SELFPAY | PROVIDERS: PCP Nurse Practitioner Family; Visit Provider Specialist | DX: Z98.890 Other specified postprocedural states (principal) | CPT/HCPCS: 99024 ==

== ENCOUNTER 2025-01-30 08:15 | Outpatient (RCR) | payer MEDICARE, OTHER, SELFPAY | END 2025-02-04 23:59 | disposition home or self-care (01) | LOC: SPT 08:15 | PROVIDERS: PCP Nurse Practitioner Family; Visit Provider Nurse Practitioner Family | DX: M54.12 Radiculopathy, cervical region (principal); M48.02 Spinal stenosis, cervical region; M47.812 Spondylosis without myelopathy or radiculopathy, cervical region | CPT/HCPCS: 97110; 97161 ==

== ENCOUNTER 2025-02-05 05:00 | Outpatient (RCR) | payer MEDICARE, OTHER, SELFPAY | END 2025-03-07 23:59 | disposition home or self-care (01) | LOC: SPT 05:00 | PROVIDERS: PCP Nurse Practitioner Family; Visit Provider Nurse Practitioner Family | DX: M47.812 Spondylosis without myelopathy or radiculopathy, cervical region (principal); M54.12 Radiculopathy, cervical region; M48.02 Spinal stenosis, cervical region | CPT/HCPCS: 97110 ==

== ENCOUNTER 2025-03-08 06:00 | Outpatient (RCR) | payer MEDICARE, OTHER, SELFPAY | END 2025-04-07 23:59 | disposition home or self-care (01) | LOC: SPT 06:00 | PROVIDERS: PCP Nurse Practitioner Family; Visit Provider Nurse Practitioner Family | DX: M54.12 Radiculopathy, cervical region (principal) | CPT/HCPCS: 97110 ==

== ENCOUNTER 2025-04-10 14:28 | Outpatient (CLI) | payer MEDICARE, OTHER, SELFPAY ==
--- NOTE | 2025-04-10 14:35 | MR_ITS ---
WS: [id number] MRA HEAD TECHNIQUE: Axial 3-D TOF images obtained with axial images and axial, sagittal, and coronal 2-D reformatted images. CLINICAL INFORMATION: DIZZINESS GIDDINESS COMPARISON: 05/29/2024 FINDINGS: Mild to moderate intracranial atheromatous disease. Distal vertebral arteries are patent. Basilar artery is patent. Normal vascularity to the NAIL MILL WORKER territory bilaterally. Mild stenosis RIGHT P1 segment. Distal vessel remains patent. Both ICAs are patent at the skull base. Cavernous carotid atheromatous disease. Mild stenosis involving the RIGHT greater than LEFT supraclinoid ICAs. Patent anterior communicating artery. Normal vascularity to the CHERIE and MCA territories bilaterally. Mild stenosis LEFT mid M1 segment. 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 No evidence of proximal flow-limiting intracranial stenosis. MR/MR angio head wo con [id number] IMPRESSION: 1. Mild to moderate intracranial atheromatous disease. 2. 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 3. No evidence of proximal flow-limiting intracranial stenosis. 4. Mild stenosis of the RIGHT greater than LEFT supraclinoid ICA's similar to previous. 5. Mild stenosis RIGHT P1 and LEFT mid M1 segments
== END 2025-04-10 14:29 | disposition home or self-care (01) ==
LOC: RAD 14:29
PROVIDERS: PCP Nurse Practitioner Family; Visit Provider Nurse Practitioner Family
DX: R42 Dizziness and giddiness (principal); I67.2 Cerebral atherosclerosis; I66.02 Occlusion and stenosis of left middle cerebral artery; I66.21 Occlusion and stenosis of right posterior cerebral artery
CPT/HCPCS: 70544

== ENCOUNTER 2025-05-06 07:20 | Emergency (ER) | payer MEDICARE, OTHER, MEDICAID, SELFPAY ==
[2025-05-06 07:21] VITALS: BP 132/77; PULSE 81; RESP 16; TEMP 36.4; O2SAT 98; BMI 33.6
--- NOTE | 2025-05-06 07:21 | XR_ITS ---
WS: [id number] XR elbow LT min 3V* [id number] REASON FOR EXAM: Trauma FINDINGS: Suboptimal positioning for the lateral view with rotation such that joint effusion not evaluated. Very subtle cortical deformity of the radial head. The remainder of the bone and joint structure of the elbow are without acute abnormality. There are findings of mild osteoarthritis. XR/XR elbow LT min 3V* [id number] IMPRESSION: Potential for occult nondisplaced compression fracture of the radial head, equi vocal. Recommend follow-up repeat examination with properly positioned lateral.
--- NOTE | 2025-05-06 07:21 | XR_ITS ---
WS: [id number] XR shoulder LT min 2V* [id number] REASON FOR EXAM: Trauma FINDINGS: Presumed acute minimally displaced two-part surgical neck fracture Scapula and clavicle intact with moderate osteoarthritis of the acromioclavicular joint and glenohumeral joint. XR/XR shoulder LT min 2V* [id number] IMPRESSION: Proximal humeral fracture as above. Moderate osteoarthritis of the acromioclavicular joint and glenohumeral joint.
--- OUTSIDE RECORDS SUMMARY | 2025-05-06 07:25 | XMS_ITS | Clinical Summary ---
Author Organization [facility] Address [address] Attn: [place] [address] Care Team Providers Care Dredge Runner Name Role Phone Patric, Leslie MCDONNELL Primary Care Provider [phone] Allergies Active Allergy Reactions Criticality Noted Date Comments Alpha-Gal (Ggcoqphjn-Dkxli-6,3-Gala ctose) Diarrhea,Rash,Nausea and Vomiting Low 10/09/2024 Tramadol Anaphylaxis High 02/13/2018 Medications rosuvastatin (CRESTOR) 10 mg tablet Take 10 mg by mouth daily at bedtime. 02/13/2018 Active isosorbide mononitrate (IMDUR) 30 mg Extended Release 24 hour tablet 07/04/2024 Acti ve metFORMIN (GLUCOPHAGE) 500 mg tablet Take 1 Tablet by mouth daily. 06/22/2024 Active gabapentin (NEURONTIN) 300 mg capsule 09/03/2024 Active amLODIPine (NORVASC) 10 mg tablet Take 1 Tablet by mouth daily. 07/10/2024 Active lisinopriL (PRINIVIL) 40 mg tablet Take 40 mg by mouth daily. Active tiZANidine (ZANAFLEX) 4 mg Capsule Take 4 mg by mouth daily at bedtime. Active aspirin (ECOTRIN EC) 81 mg Tablet, Delayed Release (E.C.) Take 81 mg by mouth daily. Active clopidogreL (PLAVIX) 75 mg Tablet Take 1 Tablet (75 mg) by mouth daily. 90 Tablet 10/11/2024 Active metoprolol succinate (TOPROL XL) 25 mg Extended Release 24 hour tablet Take 1 Tablet (25 mg) by mouth daily. 30 Tablet 11 11/13/2024 Active Active Problems Problem Noted Date Diagnosed Date S/P TAVR (transcatheter aortic valve replacement ) 10/10/2024 Severe pulmonary hypertension 10/09/2024 Severe aortic stenosis 10/09/2024 Chronic heart failure with preserved ejection fr action 10/09/2024 Moderate mitral regurgitation 10/09/2024 Type 2 diabetes mellitus 10/09/2024 Essential hypertension 10/09/2024 Allergy to alpha-gal 10/09/2024 Overview (10/09/2024): beef Neck pain 02/13/2018 Vertigo 02/13/2018 Encounters Date Type Department Care Team Description 04/09/2025 External Device Data [facility] ABSTRACTION Provider, Abstract 03/26/2025 External Device Data [facility] ABSTRACTION Provider, Abstract 03/19/2025 External Device Data [facility] ABSTRACTION Provider, Abstract 02/20/2025 External Device Data [facility] ABSTRACTION Provider, Abstract 02/19/2025 External Device Data [facility] ABSTRACTION Provider, Abstract from Last 3 Months Family History Medical History Relation Name Comments Pancreatic Cancer Brother Kidney Cancer Father Cancer Maternal Grandfather Diabetes Maternal Grandmother Stroke Maternal Grandmother Breast Cancer Sister Relation Name Status Comments Brother Alive Father Maternal Grandfather Maternal Grandmother Mother Sister Alive Social History Tobacco Use Types Packs/Day Years Used Date Smoking Tobacco: Former Cigarettes Q uit: 02/13/1998 Smokeless Tobacco: Never Tobacco Cessation:Counseling Given: Not Answered Alcohol Use Standard Drinks/Week Comments No 0 (1 standard drink = 0.6 oz pur e alcohol) Feeling Safe Answer Date Recorded Are you in a relationship wi th someone who hurts you emotionally and/or physically? 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 Gender Identity Not on file Sexual Orientation Not on file Last Filed Vital Signs Vital Sign Reading Time Taken Comments Blood Pressure 142/72 11/15/2024 1:27 PM CDT Pulse 85 11/15/2024 1:27 PM CDT Temperature 36.7 C (98.1 F) 10/10/2024 7:40 AM CATERING DRIVER Respiratory Rate 16 10/10/2024 7:40 AM CATERING DRIVER Oxygen Saturation 96% 10/10/2024 7:40 AM CATERING DRIVER Inhaled Oxygen Concentration - - Weight 85.6 kg (188 lb 12.8 oz) 11/15/2024 1:27 PM CDT Height 156.2 cm (5' 1.5 ) 11/15/2024 1:27 PM CDT Body Mass Index 35.1 11/15/2024 1:27 PM CDT Plan of Treatment Upcoming Encounters Date Type Department Care Team (Late st Contact Info) Description 10/10/2025 1:30 PM CATERING DRIVER Office Visit [facility] [address] [place] [address] Cielo Franco, [facility] [address] [place] [address] Health Maintenance Due Date Last Done Comments DIABETES ANNUAL FOOT EXAM 1963 DIABETES MICROALBUMIN ANNUAL SCREEN 1963 LDL CHOLESTEROL ANNUAL 1963 DTAP/TDAP/TD VACCINES (1 - Tdap) 1964 ZOSTER VACCINE (1 of 2) 1995 OSTEOPOROSIS SCREENING 2010 PNEUMOCOCCAL VACCINE 50+ YEA RS (2 of 2 - PCV) 09/08/2015 09/08/2014 DIABETES HBA1C Q 6 MONTHS 03/22/2019 09/22/2018, 01/2018 DIABETES ANNUAL RETINAL EXAM 07/24/2019 07/24/2018, 07/20/2018 RSV VACCINE (60+ or ) (1 - 1-dose 75+ series) 2020 INFLUENZA VACCINE (#1) 2025 2, 06/20/2022, 07/15/2021, Additional history exists COVID-19 Vaccine (5 - 2024-2 6 season) 2025 06/03/2022, 07/15/2021, 11/26/2020, Additional history exists Medical Devices Implanted Type Area Tobacco Warehouse Manager Device Identifier Shelf Expiration Date Model / Serial / Lot Closure Perclose Prostyle Sut Mediate 82018-55 - [id number] Implanted:Qty: 1 on 10/09/2024 by Fabricio Rosa MD at [facility] Closure Device Right: Groin ROMAN- VASC DEVICE [id number] 06/07/2026 69821-07 / / [id number] Closure Perclose Prostyle Sut Mediate 23553-86 - [id number] Implanted:Qty: 1 on 10/09/2024 by Fabricio Rosa MD at [facility] Closure Device Right: Groin ROMAN- VASC DEVICE [id number] 06/07/2026 23483-06 / / [id number] Dev Closure Angioseal 6fr Vip [id number] - [id number] Implanted:Qty: 1 on 10/09/2024 by Fabricio Rosa MD at [facility] Closure Device N/A: Groin TERUMO- CARDIOVASC SYS [id number] 04/03/2025 [id number] / / [id number] Vlv Aort Evolut Fx Tavr 26mm Evolutfx-26 - [id number] Implanted:Qty: 1 on 10/09/2024 by Fabricio Rosa MD at [facility] Valve N/A: Heart MEDTRONIC- HEART VALVE [id number] 10/20/2025 EVOLUTFX -26 / [id number] / Insurance MEDICARE PART A AND B [employer] [facility] [place] [id number] Advance Directives For more information, please contact: [phone] Documents on File Type Date Recorded Patient Marketing Director Assisted Living Expl anation Advance Directive Living Will 09/04/2024 3:41 PM Advance Directive Living Will * Full Code (Latest Code Status on File) Date Activated Date Inactivated Comments 10/09/2024 5:51 AM 10/10/2024 3:47 PM Care Teams Dredge Runner Relationship Specialty Start Date End Date Leslie Spivey FNP [address] [place] [id number] PCP - General NURSE PRACTITIONER 02/13/18
--- NOTE | 2025-05-06 07:35 | W.ED.EXTPRO ---
HPI - Extremity Problem General: Chief complaint: Extremity Injury, Upper Stated complaint: fall - left shoulder/elbow pain History of Present Illness: 80-year-old female who presents emergency room via EMS after, of a mechanical fall at her home. Around 615 this morning she was walking she stumbled and fell is complaining of left shoulder pain and elbow pain. She did not strike her head there is no loss consciousness she is not on any blood thinners. She also has some discomfort in her knees. No lacerations or open wounds. Associated symptoms: Deny chest pain, fever(s) or rash Related Data Home Medications ?Medication ?Instructions ?Recorded ?Confirmed metformin 500 mg tablet 500 mg PO DAILY 08/17/19 05/06/25 rosuvastatin 10 mg tablet 10 mg PO DAILY 08/17/19 05/06/25 tizanidine 4 mg capsule 4 mg PO BEDTIME PRN muscle spasm 04/02/21 05/06/25 acetaminophen 500 mg tablet 500 mg PO Q6H PRN Pain 08/12/22 05/06/25 (Acetaminophen Extra Strength) gabapentin 300 mg capsule See Rx Instructions .Route .COMPLEX 11/18/22 05/06/25 aspirin 81 mg tablet,delayed 81 mg PO DAILY 01/11/25 05/06/25 release (Adult Low Dose Aspirin) furosemide 40 mg tablet 40 mg PO DAILY PRN swelling 05/06/25 05/06/25 lisinopril 40 mg tablet 40 mg PO DAILY 05/06/25 05/06/25 metoprolol succinate 25 mg 25 mg PO DAILY 05/06/25 05/06/25 tablet,extended release 24 hr potassium chloride 20 mEq 20 meq PO DAILY PRN swelling 05/06/25 05/06/25 tablet,extended release Previous Rx's ?Medication ?Instructions ?Recorded amlodipine 5 mg tablet 10 mg (2 x 5 mg) PO DAILY 30 days 12/06/20 #30 tabs Diabetic Shoes with 3 pairs of #1 ea 08/17/22 inserts isosorbide mononitrate 30 mg 15 mg (1/2 x 30 mg) PO DAILY #45 01/09/25 tablet,extended release 24 hr tabs Allergies Allergy/AdvReac Type Severity Reaction Status Date / Time tramadol Allergy Severe ALGY-Swell Verified 05/06/25 07:28 Lip/Tongue/Throat Alpha-Gal Allergy ALGY-Rash Verified 05/06/25 07:28 (Znuyowzwo-Fhihq-5,3-Gala hydrocodone Allergy RASH Verified 05/06/25 07:28 Review of Systems Const: Denies: fever(s) or chills Card: Denies: chest pain Resp: Denies: dyspnea GI: Denies: abdominal pain : Denies: dysuria, urinary frequency or urinary urgency Musc: Denies: neck pain or back pain Skin/Breast: Denies: rash PFSH ED PFSH: Medical History Aortic stenosis Bilateral carpal tunnel syndrome Trigger index finger of right hand Hyperlipidemia Diabetes mellitus Breast cancer Hypertension Lumbar post-laminectomy syndrome Surgical History H/O heart valve replacement with mechanical valve Status post colonoscopy with polypectomy (12/25/19) ascending and rectal polyp H/O breast surgery History of lumbar surgery Status post carpal tunnel release Right carpal tunnel release, DOS: 04-26-[address] Fox Left carpal tunnel release, DOS: 06-28-[address] Fox Family History Sister Diabetes Cancer Brother Cancer Social History Smoking and tobacco/nicotine status: former use of tobacco/nicotine Alcohol intake: never Substance/Drug Use: never Lives independently: Yes Pets and animals: Yes Pets & animals: cat(s) Physical Exam Const: COMMON NORMALS: no acute distress GENERAL APPEARANCE: cooperative and comfortable ORIENTATION/CONSCIOUSNESS: Yes awake, Yes oriented to person, Yes oriented to place and Yes oriented to time HENMT: COMMON NORMALS: normocephalic, atraumatic and hearing grossly normal bilaterally HEAD & SCALP: normocephalic and atraumatic Resp: COMMON NORMALS: normal respiratory effort, No retractions, No use of accessory muscles and clear to auscultation bilaterally AUSCULTATION: clear to auscultation bilaterally Cardio: COMMON NORMALS: regular rate, regular rhythm and No murmurs present (Cardio) RATE: regular rate RHYTHM: regular rhythm GI: COMMON NORMALS: Soft to palpation and No hepatosplenomegaly present AUSCULTATION: Yes normoactive bowel sounds PALPATION: Yes Soft to palpation, No Tenderness to palpation present (GI), No Guarding due to palpation present (GI) and Yes No hepatosplenomegaly present Extremity: COMMON NORMALS: normal to inspection, capillary refill normal, no clubbing, cyanosis or edema, no calf tenderness and no pedal edema Neuro: SENSORIUM/ORIENTATION: Yes oriented to person, Yes oriented to place and Yes oriented to time Skin: COMMON NORMALS: no rashes or lesions noted GENERAL SKIN EXAM: no rashes or lesions noted Course Vital Signs: Vital signs: Vital Signs Temperature 97.6 F 05/06/25 07:21 Pulse Rate 84 05/06/25 11:20 Respiratory Rate 16 05/06/25 07:21 Blood Pressure 135/70 05/06/25 11:20 Pulse Oximetry 98 05/06/25 11:20 MDM - Extremity (Nontraumatic) Medical Decision Making On the shoulder x-ray obvious proximal humerus fracture concern for subtle radial head fracture. CT confirms. Patient discharged home with arm sling and will have her follow-up with orthopedics. Medical Records I reviewed the patient's medical records. Lab Data I reviewed the patient's lab results. Radiology Impressions Shoulder X-Ray 05/06/25 07:21 IMPRESSION: Proximal humeral fracture as above. Moderate osteoarthritis of the acromioclavicular joint and glenohumeral joint. Knee X-Ray 05/06/25 07:36 IMPRESSION: Presumed old tibial plateau fracture as above. No acute fracture or joint abnormality. Moderate osteoarthritis. Elbow X-Ray 05/06/25 08:21 IMPRESSION: Likely occult nondisplaced compression fracture of the radial head. Elbow CT 05/06/25 08:40 IMPRESSION: Acute radial head fracture as above. All radiology interpretation(s) finalized by discharge Discharge Plan Discharge Patient Disposition: Home Clinical Impression: Closed fracture of left proximal humerus Qualifiers: Encounter type: initial encounter Fracture morphology: other fracture Fracture alignment: nondisplaced Qualified Code(s): S42.295A - Other nondisplaced fracture of upper end of left humerus, initial encounter for closed fracture Closed fracture of head of left radius Qualifiers: Encounter type: initial encounter Fracture alignment: nondisplaced Qualified Code(s): S52.125A - Nondisplaced fracture of head of left radius, initial encounter for closed fracture Condition: Stable Prescriptions: No Action metformin 500 mg tablet 500 mg PO DAILY rosuvastatin 10 mg tablet 10 mg PO DAILY acetaminophen [Acetaminophen Extra Strength] 500 mg tablet 500 mg PO Q6H PRN (Reason: Pain) (DME) Diabetic Shoes with 3 pairs of inserts See Rx Instructions .Route .MEDSUPPLY Qty: 1 0RF Rx Instructions: As directed by HOME isosorbide mononitrate 30 mg tablet extended release 24 hr 15 mg PO DAILY Qty: 45 3RF amlodipine 5 mg tablet 10 mg PO DAILY 30 Days Qty: 30 0RF tizanidine 4 mg Capsule 4 mg PO BEDTIME PRN (Reason: muscle spasm) gabapentin 300 mg capsule See Rx Instructions .ROUTE .COMPLEX Rx Instructions: TAKE 1 CAPSULE BY MOUTH EVERY NIGHT AT BEDTIME FOR THE FIRST 2 WEEKS, THEN TAKE 1 CAPSULE BY MOUTH EVERY MORNING AND 2 CAPSULES EVERY NIGHT. aspirin [Adult Low Dose Aspirin] 81 mg tablet,delayed release (DR/EC) 81 mg PO DAILY furosemide 40 mg tablet 40 mg PO DAILY PRN (Reason: swelling) metoprolol succinate 25 mg tablet extended release 24 hr 25 mg PO DAILY lisinopril 40 mg tablet 40 mg PO DAILY potassium chloride 20 mEq tablet extended release 20 meq PO DAILY MDD wit lasix PRN (Reason: swelling) Discharge Orders: Discharge ED (Routine); Ordered 05/06/25 Ordered By: Mauro Jin Referrals: Leslie Spivey, DIRECTOR EMPLOYEE SAFETY AND HEALTH [Primary Care Provider, Nurse Practitioner] Discharge Diet: Usual diet Discharge Activity: Limit activity as instructed Patient Instructions: Opioid Safety, Pain Management, Patient Portal & Harry Instructions Activity Restrictions/Additional Instructions: Thank you for choosing [facility] for your healthcare needs today. It is very important that you follow up as instructed or that you return to the Emergency Department should you have concerns or if your condition changes or worsens in any way. Emergency department visits are focused on emergent conditions, in some cases you may require further evaluation on an outpatient basis. (Please note that included in your discharge packet is information concerning opioid safety and pain management. This information is given to all patients were discharged from the ER regardless of their discharge diagnosis or the medicines they usually take or are prescribed.) Print Language: Kyrgyz Coding Level of Care Code ED Cell Tuber Machine for Jose Ash
--- NOTE | 2025-05-06 07:36 | XR_ITS ---
WS: [email or web address] XR knee RT 3V* [id number] REASON FOR EXAM: Pain FINDINGS: No fracture or focal bone lesion. Moderate narrowing of the medial knee joint space with moderate subchondral sclerosis and osteophytosis. Lateral knee joint space intact and relatively well preserved with mild subchondral sclerosis and osteophytosis. Calcification of the lateral meniscus. Mild narrowing of the patellofemoral joint space with mild subchondral sclerosis and osteophytosis of the patella. XR/XR knee RT 3V* [id number] IMPRESSION: No acute bone or joint abnormality. Moderate osteoarthritis.
--- NOTE | 2025-05-06 07:36 | XR_ITS ---
WS: [id number] XR knee LT 3V* [id number] REASON FOR EXAM: Pain FINDINGS: Calcification in the central femoral metaphysis indicating a benign enchondroma or less likely old bone infarct. Presumed old depressed lateral tibial plateau fracture with concave deformity of the lateral tibial plateau and marginal osteophytosis. No acute fracture. Moderate narrowing of the medial knee joint space with moderate subchondral sclerosis and osteophytosis. Mild narrowing of the patellofemoral joint space with moderate subchondral sclerosis and osteophytosis of the patella. XR/XR knee LT 3V* [id number] IMPRESSION: Presumed old tibial plateau fracture as above. No acute fracture or joint abnor mality. Moderate osteoarthritis.
--- NOTE | 2025-05-06 08:21 | XR_ITS ---
WS: [email or web address] XR elbow LT 2V [id number] REASON FOR EXAM: ADDITIONAL IMAGES FALL FINDINGS: The new lateral is malpositioned and not helpful for joint effusion evaluation. Review of previous images with window manipulation are still suspect for nondisplaced occult compression fracture of the radial head but with further certainty. There are multiple skin folds crossing the distal humerus but no definite acute fracture. XR/XR elbow LT 2V [id number] IMPRESSION: Likely occult nondisplaced compression fracture of the radial head.
--- NOTE | 2025-05-06 08:40 | CT_ITS ---
WS: [email or web address] CT elbow LT wo con* [id number] REASON FOR EXAM: trauma IV CONTRAST ADMINISTERED: None. TOTAL EXAM DLP: 568.[address] scans at [facility] use at least one of these dose optimization techniques: automated exposure control; mA and/or kV adjustment per patient size (includes targeted exams where dose is matched to clinical indication); or iterative reconstruction. FINDINGS: None displaced radial head compression fracture with slight deformity of the articular surface medially. No other acute bone or joint abnormality. CT/CT elbow LT wo con* [id number] IMPRESSION: Acute radial head fracture as above.
--- NOTE | 2025-05-06 09:15 | PC.PHAR ---
Pt states she would like to take home something for pain.
[2025-05-06 11:20] VITALS: BP 135/70; PULSE 84; O2SAT 98
--- NOTE | 2025-05-08 12:25 | DCPLANNER ---
Message sent to Ortho -for follow up On the shoulder x-ray obvious proximal humerus fracture concern for subtle radial head fracture. CT confirms. Patient discharged home with arm sling and will have her follow-up with orthopedics.
== END 2025-05-06 11:20 | disposition home or self-care (01) ==
PROVIDERS: Emergency Provider Family Medicine; PCP Nurse Practitioner Family
DX: S42.295A Other nondisplaced fracture of upper end of left humerus, initial encounter for closed fracture (principal); S52.125A Nondisplaced fracture of head of left radius, initial encounter for closed fracture; Z79.82 Long term (current) use of aspirin; Z79.84 Long term (current) use of oral hypoglycemic drugs; Z87.891 Personal history of nicotine dependence; E78.5 Hyperlipidemia, unspecified; E11.9 Type 2 diabetes mellitus without complications; I10 Essential (primary) hypertension; Z85.3 Personal history of malignant neoplasm of breast; W19.XXXA Unspecified fall, initial encounter
CPT/HCPCS: 73030; 73070; 73080; 73200; 73562; 99284

== ENCOUNTER → 2025-05-21 15:44 | Outpatient (BNVA) | payer MEDICARE, OTHER, SELFPAY | PROVIDERS: PCP Nurse Practitioner Family; Visit Provider Orthopaedic Surgery | DX: S42.295A Other nondisplaced fracture of upper end of left humerus, initial encounter for closed fracture (principal); S52.122A Displaced fracture of head of left radius, initial encounter for closed fracture; W19.XXXA Unspecified fall, initial encounter; M19.031 Primary osteoarthritis, right wrist | CPT/HCPCS: 23600; 24650; 73030; 73080; 73110; 99203 ==

== ENCOUNTER → 2025-06-18 14:54 | Outpatient (BNVA) | payer MEDICARE, OTHER, SELFPAY | PROVIDERS: PCP Nurse Practitioner Family; Visit Provider Orthopaedic Surgery | DX: S42.295D Other nondisplaced fracture of upper end of left humerus, subsequent encounter for fracture with routine healing (principal); X58.XXXD Exposure to other specified factors, subsequent encounter | CPT/HCPCS: 73030; 99213 ==

== ENCOUNTER → 2025-06-19 08:57 | Outpatient (BNVA) | payer MEDICARE, OTHER, SELFPAY | PROVIDERS: PCP Nurse Practitioner Family; Visit Provider Podiatrist Foot & Ankle Surgery | DX: E11.21 Type 2 diabetes mellitus with diabetic nephropathy (principal); L60.3 Nail dystrophy; L84 Corns and callosities; I73.9 Peripheral vascular disease, unspecified; L60.8 Other nail disorders; Z79.84 Long term (current) use of oral hypoglycemic drugs | CPT/HCPCS: 11056; 11721 ==

== ENCOUNTER → 2025-07-08 10:52 | Outpatient (BNVA) | payer MEDICARE, OTHER, SELFPAY | PROVIDERS: PCP Nurse Practitioner Family; Visit Provider Nurse Practitioner Family | DX: Z95.3 Presence of xenogenic heart valve (principal); I10 Essential (primary) hypertension | CPT/HCPCS: 99214 ==

== ENCOUNTER 2025-07-15 14:34 | Outpatient (CLI) | payer MEDICARE, OTHER, SELFPAY ==
--- NOTE | 2025-07-15 15:00 | USCV_ITS ---
Sweetie Stern Age: 80 Gender: F : 1945 Exam Date: 07/15/2025 15:03 Ordering Phys: Bebe Green Technologist: Exam Location: [facility] [place] Indication: tavor ao pros BP: 160 / 80 HR: 83 Rhythm: Sinus Technical Quality: Adequate MEASUREMENTS (Male / Female) Normal Values 2D ECHO LV Diastolic Diameter PLAX 3.8 cm 4.2 - 5.9 / 3.9 - 5.3 cm IVS Diastolic Thickness 1.4 cm 0.6 - 1.0 / 0.6 - 0.9 cm IVS Systolic Thickness 2.3 cm LVPW Diastolic Thickness 1.7 cm 0.6 - 1.0 / 0.6 - 0.9 cm LVPW Systolic Thickness 2.0 cm LVOT Diameter 1.8 cm LV Ejection Fraction 2D Teich 61.7 % LV Ejection Fraction MOD 4C 63.0 % LV Ejection Fraction MOD 2C 76.0 % LV Ejection Fraction 2C AL 75.0 % LA Diameter 4.3 cm RA Systolic Volume 4C AL 31.2 ml RA Systolic Volume 4C MOD 30.7 ml LA Sys Volume AL 89.7 cm cubed LA Sys Volume Index AL 46.6 cm cubed/m squared Aorta at Sinotubular Diameter 2.4 cm M-MODE LA Ao Ratio MM 1.6 AV Cusp Separation MM 1.4 cm DOPPLER AV Peak Velocity 232.0 cm/s LVOT Peak Velocity 118.0 cm/s AV Area Cont Eq vti 1.7 cm squared AV Area Cont Eq pk 1.3 cm squared MV Peak Velocity 122.0 cm/s MV Area PHT 3.5 cm squared Mitral E to A Ratio 1.0 TV Peak Velocity 293.5 cm/s TR Peak Velocity 341.0 cm/s TR Peak Gradient 46.5 mmHg TV Peak E Velocity 94.0 cm/s PV Peak Velocity 91.0 cm/s FINDINGS Left Ventricle Normal left ventricular size, systolic function and wall thickness, with no regional wall motion abnormalities. Left ventricular ejection fraction is estimated at 60 %. Grade I/IV diastolic dysfunction (abnormal relaxation filling pattern), normal to mildly elevated filling pressures. Right Ventricle Normal right ventricular size and systolic function. Right Atrium Normal right atrial size. Left Atrium Moderately increased left atrial size. IA Septum Normal appearance of the interatrial septum. Mitral Valve Moderately thickened mitral valve. Moderate mitral annular calcification. No mitral valve stenosis. Mild mitral valve regurgitation. Aortic Valve Bioprosthetic aortic valve is sitting in normal position without any valvular or paravalvular leak. Tricuspid Valve Mild to moderate tricuspid valve regurgitation. Pulmonic Valve Normal pulmonic valve structure. No pulmonic valve stenosis or regurgitation. Pericardium No pericardial effusion. Aorta Normal diameter of the aortic root and ascending thoracic aorta. IVC Normal IVC diameter. CONCLUSIONS Normal left ventricular size, systolic function and wall thickness, with no regional wall motion abnormalities. Left ventricular ejection fraction is estimated at 60 %. Grade I/IV diastolic dysfunction (abnormal relaxation filling pattern), normal to mildly elevated filling pressures. Moderately increased left atrial size. Moderately thickened mitral valve. Moderate mitral annular calcification. No mitral valve stenosis. Mild mitral valve regurgitation. Mild to moderate tricuspid valve regurgitation. There is no pericardial effusion. Right atrial pressure is around 5 mm of mercury. Lexi Gonzalez MD (Electronically Signed) Final Date: 18 July 2025 08:30 S
== END 2025-07-15 14:35 | disposition home or self-care (01) ==
LOC: RAD 14:34
PROVIDERS: PCP Nurse Practitioner Family; Visit Provider Nurse Practitioner Family
DX: I10 Essential (primary) hypertension (principal); R06.02 Shortness of breath; I35.0 Nonrheumatic aortic (valve) stenosis; Z95.3 Presence of xenogenic heart valve; I51.89 Other ill-defined heart diseases; I34.9 Nonrheumatic mitral valve disorder, unspecified; I34.1 Nonrheumatic mitral (valve) prolapse; I36.1 Nonrheumatic tricuspid (valve) insufficiency; I34.2 Nonrheumatic mitral (valve) stenosis
CPT/HCPCS: 93306

== ENCOUNTER → 2025-07-30 13:46 | Outpatient (BNVA) | payer MEDICARE, OTHER, SELFPAY | PROVIDERS: PCP Nurse Practitioner Family; Visit Provider Orthopaedic Surgery | DX: S42.295D Other nondisplaced fracture of upper end of left humerus, subsequent encounter for fracture with routine healing (principal); W19.XXXD Unspecified fall, subsequent encounter | CPT/HCPCS: 73030; 99213 ==